=== PATIENT | male | born 1990 | race Caucasian/White ===

== ENCOUNTER 2016-06-19 09:04 | Inpatient (IN) | payer OTHER, BC ==
[2016-06-19] MEDS ORDERED: diPHENhydraMINE PO* 50 MG PO ONE (09:51)
[2016-06-19] MEDS ORDERED: LORazepam TAB(*) 1 MG PO ONE (09:51)
[2016-06-19] MEDS ORDERED: Haloperidol TAB* 5 MG PO ONE (09:51)
[2016-06-19] MEDS ORDERED: LORazepam INJ* 2 MG/ML 1 ML VIAL IM ONE (09:54)
[2016-06-19] MEDS ORDERED: diPHENhydraMINE IV* 50 MG/ML 1 ml VIAL (BENADRYL) IM ONE (09:54)
[2016-06-19] MEDS ORDERED: Haloperidol INJ IV/IM* 5 MG/ML AMP IM ONE (09:54)
[2016-06-19 11:26] LABS: Hematocrit 38 % (42-52); Mean Corpuscular HGB Conc 34 g/dl (31-36); Mean Corpuscular Hemoglobin 30 pg (27-31); Mean Corpuscular Volume 87 fL (80-94); Mean Platelet Volume 9 um3 (7.4-10.4); Red Blood Count 4.35 10^6/ul (4.0-5.4); Red Cell Distribution Width 13 % (10.5-15); White Blood Count 5.3 10^3/ul (3.5-10.8)
[2016-06-19 11:42] LABS: ALT 15 U/L (7-52); AST 24 U/L (13-39); Albumin 4.1 g/dL (3.2-5.2); Alkaline Phosphatase 44 U/L (34-104); Anion Gap 5 mmol/L (2-11); BUN/Creatinine Ratio 24.7 (8-20); Blood Urea Nitrogen 19 mg/dL (6-24); CO2 Carbon Dioxide 27 mmol/L (22-32); Calcium 8.9 mg/dL (8.6-10.3); Chloride 104 mmol/L (101-111); EGFR African American 157.1 (>60); EGFR Non-African American 122.1 (>60); Globulin 2.3 g/dL (2-4); Glucose 95 mg/dL (70-100); Potassium 3.3 mmol/L (3.5-5.0); Sodium 136 mmol/L (133-145); Total Protein 6.4 g/dL (6.4-8.9)
[2016-06-19 12:17] LABS: Acetaminophen < 15 mcg/mL; Alcohol < 10 mg/dL (<10); Salicylate < 2.50 mg/dL (<30)
[2016-06-19 12:26] LABS: TSH (Thyroid Stimulating Horm) 1.44 mcIU/mL (0.34-5.60)
--- NOTE | 2016-06-19 17:04 | ED ---
Elizabeth Fontenot Matthew, scribed for Jose M Flores MD on 06/19/16 at 0926 . Altered Mental Status - HPI Summary HPI Summary: A 26 y/o male presents to the ED by police as a 941 for altered mental status. According to police, the patient voluntarily came to the police station to admitted crimes he had committed at [facility] including arson and states that he suffers from schizophrenia. Per police, he has been experience a spectrum of emotions from remorse to anger. He has no suicidal ideations, but has verbalized homidical ideations to family members. In the ED, the patient is not speaking coherent thoughts rather speaking about saving the children and the holy spirit. - History Of Current Complaint Chief Complaint: EDMentalHealth Stated Complaint: 941 Time Seen by Provider: 06/19/16 09:15 Hx Obtained From: Patient, Other: - Police Onset/Duration: Still Present Timing: Constant Severity Initially: Moderate Severity Currently: Moderate Aggravating Factor(s): Unknown Alleviating Factor(s): Unknown Has Homicidal: Thoughts - Allergies/Home Medications Home Medications: Home Medications CloZAPine TAB* 50 mg PO BEDTIME 06/19/16 [History Confirmed 06/19/16] QUEtiapine TAB* [SEROquel TAB*] 100 mg PO Q8HR PRN MDD 300 mg 06/19/16 [History Confirmed 06/19/16] PMH/Surg Hx/FS Hx/Imm Hx Previously Healthy: No Psychiatric History: Reports: Hx Schizophrenia Denies: Hx Eating Disorder Infectious Disease History: Denies: Traveled Outside the [place] in Last 30 Days - Family History Family History: FHx of schizophrenia - Social History Alcohol Use: None Hx Substance Use: No Substance Use Type: Reports: None Review of Systems Constitutional: Negative Eyes: Negative ENT: Negative Cardiovascular: Negative Respiratory: Negative Gastrointestinal: Negative Genitourinary: Negative Musculoskeletal: Negative Skin: Negative Neurological: Negative Psychological: Other - homidical ideation; schizophrenia All Other Systems Reviewed And Are Negative: Yes Physical Exam Triage Information Reviewed: Yes Vital Signs On Initial Exam: Initial Vitals Temp Pulse Resp BP Pulse Ox 99.6 F 76 16 128/61 96 06/19/16 09:17 06/19/16 09:17 06/19/16 09:17 06/19/16 09:17 06/19/16 09:17 Vital Signs Reviewed: Yes Appearance: Positive: Well-Appearing, No Pain Distress Skin: Positive: Warm, Skin Color Reflects Adequate Perfusion, Dry Head/Face: Positive: Normal Head/Face Inspection ENT: Positive: Normal ENT inspection Neck: Positive: Supple, Nontender Cardiovascular: Positive: RRR Musculoskeletal: Positive: Normal, Strength/ROM Intact Neurological: Positive: Sensory/Motor Intact Psychiatric: Positive: Other - Delusional; Paranoid Diagnostics - Vital Signs Vital Signs Temp Pulse Resp BP Pulse Ox 06/19/16 09:17 99.6 F 76 16 128/61 96 - Laboratory Lab Results: Lab Results 06/19/16 06/19/16 Range/Units 11:20 11:20 WBC 5.3 (3.5-10.8) 10^3/ul RBC 4.35 (4.0-5.4) 10^6/ul Hgb 13.0 L (14.0-18.0) g/dl Hct 38 L (42-52) % MCV 87 (80-94) fL MCH 30 (27-31) pg MCHC 34 (31-36) g/dl RDW 13 (10.5-15) % Plt Count 192 (150-450) 10^3/ul MPV 9 (7.4-10.4) um3 Neut % (Auto) 66.1 (38-83) % Lymph % (Auto) 15.3 L (25-47) % [place] % (Auto) 13.1 H (1-9) % Eos % (Auto) 5.0 (0-6) % Baso % (Auto) 0.5 (0-2) % Absolute Neuts (auto) 3.5 (1.5-7.7) 10^3/ul Absolute Lymphs (auto) 0.8 L (1.0-4.8) 10^3/ul Absolute Monos (auto) 0.7 (0-0.8) 10^3/ul Absolute Eos (auto) 0.3 (0-0.6) 10^3/ul Absolute Basos (auto) 0 (0-0.2) 10^3/ul Absolute Nucleated RBC 0 10^3/ul Nucleated RBC % 0 Sodium 136 (133-145) mmol/L Potassium 3.3 L (3.5-5.0) mmol/L Chloride 104 (101-111) mmol/L Carbon Dioxide 27 (22-32) mmol/L Anion Gap 5 (2-11) mmol/L BUN 19 (6-24) mg/dL Creatinine 0.77 (0.67-1.17) mg/dL Est GFR ( Amer) 157.1 (>60) Est GFR (Non-Af Amer) 122.1 (>60) BUN/Creatinine Ratio 24.7 H (8-20) Glucose 95 (70-100) mg/dL Calcium 8.9 (8.6-10.3) mg/dL Total Bilirubin 0.40 (0.2-1.0) mg/dL AST 24 (13-39) U/L ALT 15 (7-52) U/L Alkaline Phosphatase 44 (34-104) U/L Total Protein 6.4 (6.4-8.9) g/dL Albumin 4.1 (3.2-5.2) g/dL Globulin 2.3 (2-4) g/dL Albumin/Globulin Ratio 1.8 (1-3) TSH 1.44 (0.34-5.60) mcIU/mL Salicylates < 2.50 (<30) mg/dL Acetaminophen < 15 mcg/mL Serum Alcohol < 10 (<10) mg/dL Result Diagrams: 06/19/16 11:20 06/19/16 11:20 Lab Statement: Any lab studies that have been ordered have been reviewed, and results considered in the medical decision making process. Altered Mental Statu Course/Dx - Course Assessment/Plan: MHE PENDING AT SHIFT CHANGE, STABLE. - Diagnoses Discharge Diagnoses: Mental health problem Discharge - Discharge Plan Condition: Stable Disposition[place]ATR[place] [place] Comment: The patient is signed out to Dr. Graham pending MHE The documentation as recorded by the Elizabeth barrientos Matthew accurately reflects the service I personally performed and the decisions made by me, Jose M Flores MD.
[2016-06-19] MEDS: OLANzapine TAB*ODT* 5 MG PO SCH ×2 (19:02→21:08)
[2016-06-19 21:24] LABS: Urine Bilirubin Negative (Negative); Urine Glucose Negative (Negative); Urine Nitrite Negative (Negative)
[2016-06-19 21:41] LABS: Benzodiazepine Urine Screen None Detected (None Detect)
[2016-06-20] MEDS: OLANzapine TAB*ODT* 5 MG PO SCH ×2 (09:12→19:58)
--- NOTE | 2016-06-20 11:51 | CONSULT ---
Consult Consult: Edgard Aponte was turned over to me at change of shift. He has a history of schizophrenia and had presented in a very disorganized state. He was medically cleared by the preceding Doc and remained stable and quiet during my shift. He was evaluated by MHE and was awaiting disposition in stable condition at the end of my shift.
[2016-06-20] MEDS ORDERED: Ibuprofen TAB* 400 MG PO ONE (12:44)
--- NOTE | 2016-06-20 15:41 | PN ---
ED Flex Patient Progress Note Subjective: This is a 26 year-old M who is pending transfer to another psychiatric facility secondary to schizophrenia. Pt offers no complaints at this time. He states he has been eating and drinking. He states he has been sleeping well. He is interacting appropriately. He asked to go outside and it was explained that he can not leave the building. Objective: Vitals: Most recent vital signs documented below. General NAD, Alert and oriented x3. Heart: rrr at 60 bpm Lungs: CTA or with rales, rhonchi, wheezing Ab: soft, nontender, normoactive bowel sounds Laboratory: Current laboratory results documented below. Assessment: schizophrenia Plan: Pending psychiatric to transfer, will follow up daily until transfer occurs. condition: stable Disposition: transfer to another psych facility Vital Signs Temp Pulse Resp BP Pulse Ox 98.3 F 58 16 104/60 98 06/20/16 05:49 06/20/16 05:49 06/20/16 05:49 06/20/16 05:49 06/20/16 05:49 Lab Results - Entire Visit 06/19/16 06/19/16 06/19/16 21:10 21:10 11:20 WBC RBC Hgb Hct MCV MCH MCHC RDW Plt Count MPV Neut % (Auto) Lymph % (Auto) [place] % (Auto) Eos % (Auto) Baso % (Auto) Absolute Neuts (auto) Absolute Lymphs (auto) Absolute Monos (auto) Absolute Eos (auto) Absolute Basos (auto) Absolute Nucleated RBC Nucleated RBC % Sodium 136 Potassium 3.3 L Chloride 104 Carbon Dioxide 27 Anion Gap 5 BUN 19 Creatinine 0.77 Est GFR ( Amer) 157.1 Est GFR (Non-Af Amer) 122.1 BUN/Creatinine Ratio 24.7 H Glucose 95 Calcium 8.9 Total Bilirubin 0.40 AST 24 ALT 15 Alkaline Phosphatase 44 Total Protein 6.4 Albumin 4.1 Globulin 2.3 Albumin/Globulin Ratio 1.8 TSH 1.44 Urine Color Yellow Urine Appearance Cloudy Urine pH 5.0 Ur Specific [place] 1.032 H Urine Protein Negative Urine Ketones Trace H Urine Blood Negative Urine Nitrate Negative Urine Bilirubin Negative Urine Urobilinogen Negative Ur Leukocyte Esterase Negative Urine Glucose Negative Urine Ascorbic Acid * H Salicylates < 2.50 Urine Opiates Screen None detected Acetaminophen < 15 Ur Barbiturates Screen None detected Ur Phencyclidine Scrn None detected Ur Amphetamines Screen None detected U Benzodiazepines Scrn None detected Urine Cocaine Screen None detected U Cannabinoids Screen None detected Serum Alcohol < 10 06/19/16 11:20 WBC 5.3 RBC 4.35 Hgb 13.0 L Hct 38 L MCV 87 MCH 30 MCHC 34 RDW 13 Plt Count 192 MPV 9 Neut % (Auto) 66.1 Lymph % (Auto) 15.3 L [place] % (Auto) 13.1 H Eos % (Auto) 5.0 Baso % (Auto) 0.5 Absolute Neuts (auto) 3.5 Absolute Lymphs (auto) 0.8 L Absolute Monos (auto) 0.7 Absolute Eos (auto) 0.3 Absolute Basos (auto) 0 Absolute Nucleated RBC 0 Nucleated RBC % 0 Sodium Potassium Chloride Carbon Dioxide Anion Gap BUN Creatinine Est GFR ( Amer) Est GFR (Non-Af Amer) BUN/Creatinine Ratio Glucose Calcium Total Bilirubin AST ALT Alkaline Phosphatase Total Protein Albumin Globulin Albumin/Globulin Ratio TSH Urine Color Urine Appearance Urine pH Ur Specific [place] Urine Protein Urine Ketones Urine Blood Urine Nitrate Urine Bilirubin Urine Urobilinogen Ur Leukocyte Esterase Urine Glucose Urine Ascorbic Acid Salicylates Urine Opiates Screen Acetaminophen Ur Barbiturates Screen Ur Phencyclidine Scrn Ur Amphetamines Screen U Benzodiazepines Scrn Urine Cocaine Screen U Cannabinoids Screen Serum Alcohol
--- NOTE | 2016-06-20 15:47 | PN ---
Progress Note - Progress Note Note: Psychiatry Update No inpatient bed available for transfer, or at [facility]. Spoke with pt's cousin Serena Graham by phone, she gave collateral along lines of info we have already. Edgard has been in good behavioral control. I met with hism. He was ambivalent about the idea of admission ("can't I just sign a 3 day?"). He made no frankly delusional comment but said "how do you know I don't have sepsis.?" Impression: decompensated Psychotic disorder, stabilizing behaviorally but requires a full Psychiatric admission and inpatient course. 1. continue Zyprexa (ordered) 2. transfer to [facility] area for comfort 3. admit to first available psychiatric bed
[2016-06-20] MEDS ORDERED: Acetaminophen TAB* 325 MG PO ONE (15:48)
[2016-06-20] MEDS ORDERED: OLANzapine TAB*ODT* 5 MG ONE (21:31)
[2016-06-21] MEDS ORDERED: Ibuprofen TAB* 600 MG PO ONE (01:14)
[2016-06-21] MEDS ORDERED: LORazepam TAB(*) 1 MG ONE (02:10)
[2016-06-21] MEDS ORDERED: Haloperidol TAB* 5 MG ONE (02:10)
[2016-06-21] MEDS: OLANzapine TAB*ODT* 5 MG PO SCH ×2 (12:02→20:10)
[2016-06-21] MEDS ORDERED: Nicotine GUM* 2 MG ONE (18:06)
[2016-06-21] MEDS: Nicotine Inhaler* 10 MG AMP INH PRN (18:09)
[2016-06-22] MEDS: Nicotine GUM* 2 MG PO PRN ×4 (00:21→20:18)
[2016-06-22] MEDS: OLANzapine TAB*ODT* 5 MG PO SCH (08:39)
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
[2016-06-22] MEDS ORDERED: Paliperidone TAB* 6 MG PO SCH (21:00)
[2016-06-23] MEDS ORDERED: LORazepam TAB(*) 1 MG ONE (01:31)
[2016-06-23] MEDS: Nicotine GUM* 2 MG PO PRN ×2 (09:10→12:59)
--- NOTE | 2016-06-23 10:30 | PN ---
Subjective - Subjective Service Type: 55823 Hosp care 15 min low complexity Subjective: Swapna requests change of medication from Invega to Zyprexa. He had said last evening that he had good effect against psychosis in the past with Invega. Today he says he feels he will do better taking Zyprexa. He also reports having had what he is calling an allergic reaction to mushrooms he ate at dinner , feeling sick after eating them with a fever and a headache. Nursing notes do not include report of any complaint of reaction to mushrooms, and no temperature was recorded last evening. Nursing notes do report that Swapna is wearing socks or gloves on his hands because he wants to keep his hands to himself and not touch anyone or have them touch him, that he was requesting his things all be donated. He complained of anxiety about 5 am today, attributed to Invega dose given at bedtime, and received 2 mg Ativan with good effect on order from the on-call psychiatrist. Objective - Appearance Appearance: Healthy Appearing Dysmorphic Features: No Hygiene: Normal Grooming: Fairly Well Kept - but wearing gloves or socks on hands - Behavior Psychomotor Activities: Normal Exhibits Abnormal Movement: No - Attitude and Relatedness Attitude and Relatedness: Psychotically Related Eye Contact: Fair - Speech Quality: Unpressured Latencies: Normal Quantity: Appropriate - Mood Patient's Decription of Mood: "Cautiously optimistic" - Affect Observed Affect: Constricted Affect Consistent with: Euthymia - Thought Process Patient's Thought Process: Disorganized Thought Content: Yes Paranoid Ideation - denied but shown by behavior, No Passive Wish, No Suicidal Planning, No Homicidal Ideation - Sensorium Experiencing Hallucinations: No, Sensorium is Clear Type of Hallucinations: Visual: No, Auditory: No, Command: No - Level of Consciousness Level of Consciousness: Alert Orientation: Yes Intact, Yes Orientated to Time, Yes Orientated to Place, Yes Orientated to Person - Impulse Control Impulse Control: Intact - Insight and Judgement Insight and Judgement: Impaired - Group Participation Particating in Group Activities: Yes - Medication Management Medication Management Adherence: Yes Assessment - Assessment Inpatient DSM-IV Dx: Schizophrenia; polysubstance abuse in remission; rule out PTSD. Clinical Impression: Mr. Leonardo is a 26-year-old, single man who is actively paranoid and delusional with an exacerbation of schizophrenia likely due to medication noncompliance. He has a history of four prior psychiatric hospitalizations and has moved to the area in part because of reported conflict in his relationship with his mother who lives in the [facility]. Today Swapna stated that he has thought of suicide, but not recently, but has never arranged any means for carrying out an attempt, and has been deterred by the thought of how it would affect his family. Today Swapna requests a change of meds as he says he has responded well in the past to Zyprexa, contradicting report from Dr Guerrier. He complained of intolerable anxiety after taking Invega at bedtime yesterday. He prefers not to take Clozaril. We will be continuing to gather collateral as he permits, with likely most useful contact being with his physician mother. Plan - Plan Treatment Plan: Name: SWAPNA LEONARDO Birthdate: 1990 [id number] D/C Invega, start Zyprexa 5 mg AM, 10 mg HS. Gather collateral. Monitor MS and safety. Encourage groups and milieu. D/C is likely to care with [facility]. Medications: Current Medications Nicotine (Nicotine Inhaler*) 10 mg INH Q2H PRN PRN Reason: CRAVING Last Admin: 06/21/16 18:09 Dose: 10 mg Nicotine Polacrilex (Nicotine Gum*) 2 mg PO Q2H PRN PRN Reason: CRAVINGS Last Admin: 06/23/16 09:10 Dose: 2 mg Zyprexa 5 mg am, 10 mg hs ativan 1 mg q6hrs prn anxiety - Discharge Plan Discharge Plan: Outpatient Follow Up Outpatient Program: [facility]
[2016-06-23] MEDS: OLANzapine TAB*ODT* 5 MG PO SCH (11:14)
--- NOTE | 2016-06-23 13:18 | PN ---
[facility]: Group Therapy Note - Service Type Service Type: [id number] Group Psychotherapy - Cognitive Behavioral Group Therapy ( CBT):Patient was attentive and participatory in CBT programming this morning, and remained in good behavioral control. Patient expressed positive insights regarding relevant treatment interventions and goals.
[2016-06-23] MEDS ORDERED: Magnesium Hydroxide LIQ* 30 ML UDC PO PRN (15:32)
[2016-06-23] MEDS: OLANzapine TAB*ODT* 10 MG TAB PO SCH (20:16)
[2016-06-23] MEDS: LORazepam TAB(*) 1 MG PO PRN (22:52)
[2016-06-24] MEDS: OLANzapine TAB*ODT* 5 MG PO SCH (08:57)
[2016-06-24] MEDS: Nicotine GUM* 2 MG PO PRN (08:58)
[2016-06-24] MEDS: OLANzapine TAB*ODT* 10 MG TAB PO SCH (21:34)
[2016-06-24] MEDS: LORazepam TAB(*) 1 MG PO PRN (23:35)
[2016-06-25] MEDS: OLANzapine TAB*ODT* 5 MG PO SCH (08:55)
[2016-06-25] MEDS: Nicotine GUM* 2 MG PO PRN ×3 (10:19→23:32)
--- NOTE | 2016-06-25 15:19 | PN ---
Subjective - Subjective Subjective: Swapna remains delusional and disorganized in his thinking, observed wearing lather gloves because he does not want to touch or to be touched by anyone. "I am working on my own inner thing!" He stops talking, whispers or asks to go somewhere else when others are within earshot. He denies side effects from prescribed Olanzapine. Objective - Appearance Appearance: Healthy Appearing Dysmorphic Features: No Hygiene: Normal Grooming: Well Kept - Behavior Psychomotor Activities: Normal Exhibits Abnormal Movement: No - Attitude and Relatedness Attitude and Relatedness: Psychotically Related Eye Contact: Poor - Speech Quality: Unpressured Latencies: Long Quantity: Terse - Mood Patient's Decription of Mood: "Okay" - Affect Observed Affect: Unvariable Affect Consistent with: Euthymia - Thought Process Patient's Thought Process: Disorganized, Tangential Thought Content: Yes Paranoid Ideation, No Passive Wish, No Suicidal Planning, No Homicidal Ideation - Sensorium Experiencing Hallucinations: No, Sensorium is Clear - Level of Consciousness Level of Consciousness: Alert Orientation: Yes Intact - Impulse Control Impulse Control: Intact - Insight and Judgement Insight and Judgement: Impaired - Group Participation Particating in Group Activities: No - Medication Management Medication Management Adherence: Yes Assessment - Assessment Merits Inpatient Hospitalization: Consolidate Improvements, For Discharge Planning Inpatient DSM-IV Dx: Schizophrenia; polysubstance abuse in remission; rule out PTSD. Clinical Impression: Ongoing impairing psychotic symptoms. tolerating trial of Olanzapine. He needs continued admission for stabilization. Plan - Plan Treatment Plan: Name: SWAPNA LEONARDO Birthdate: 1990 [id number] Medications: Current Medications Lorazepam (Ativan Tab(*)) 1 mg PO Q6H PRN PRN Reason: ANXIETY Last Admin: 06/24/16 23:35 Dose: 1 mg Magnesium Hydroxide (Milk Of Magnesia Liq*) 30 ml PO Q6H PRN PRN Reason: CONSTIPATION Nicotine (Nicotine Inhaler*) 10 mg INH Q2H PRN PRN Reason: CRAVING Last Admin: 06/21/16 18:09 Dose: 10 mg Nicotine Polacrilex (Nicotine Gum*) 2 mg PO Q2H PRN PRN Reason: CRAVINGS Last Admin: 06/25/16 10:19 Dose: 2 mg Olanzapine (Zyprexa *Odt*) 10 mg PO BEDTIME [facility] Last Admin: 06/24/16 21:34 Dose: 10 mg Olanzapine (Zyprexa * Tab Odt) 5 mg PO DAILY [facility] Last Admin: 06/25/16 08:55 Dose: 5 mg - Discharge Plan Discharge Plan: Outpatient Follow Up Outpatient Program: [facility]
[2016-06-25] MEDS: OLANzapine TAB*ODT* 10 MG TAB PO SCH ×2 (20:48→20:52)
[2016-06-25] MEDS: LORazepam TAB(*) 1 MG PO PRN (21:15)
--- NOTE | 2016-06-26 08:55 | PN ---
Subjective - Subjective Service Type: 53562 Hosp care 15 min low complexity Subjective: Guzman requests staff pass, complains of no fresh air. Says he had a 'really bad reaction' to Zyprexa, but says 'words won't do it justice' so will not tell me what it was. Requests replacing Zyprexa with Ambien. Wants a fast acting, dissolving med. Says his problem is psychic conflict, not mental illness, and that he is informed in this opinion by the 11th edition of the [employer] Manual. Denies any hallucinations. Does not recognize wearing a towel over his face and leather gloves on the unit as signs of broader behavioral disorganization. Wore a sign over the weekend stating he intended to remain silent. Still wants to donate his things, but family took them home. Refused 1 meeting with family. Objective - Appearance Appearance: Healthy Appearing Dysmorphic Features: No Hygiene: Normal Grooming: Disheveled - Behavior Psychomotor Activities: Normal Exhibits Abnormal Movement: No - Attitude and Relatedness Attitude and Relatedness: Psychotically Related Eye Contact: Fair - Speech Quality: Unpressured Latencies: Normal Quantity: Appropriate - Mood Patient's Decription of Mood: "a little frustrated" - Affect Observed Affect: Constricted - Thought Process Patient's Thought Process: Disorganized Thought Content: Yes Paranoid Ideation, No Passive Wish, No Suicidal Planning, No Homicidal Ideation - Sensorium Experiencing Hallucinations: No, Sensorium is Clear Type of Hallucinations: Visual: No, Auditory: No, Command: No - Level of Consciousness Level of Consciousness: Alert Orientation: Yes Intact, Yes Orientated to Time, Yes Orientated to Place, Yes Orientated to Person - Impulse Control Impulse Control: Intact - Insight and Judgement Insight and Judgement: Impaired - Group Participation Particating in Group Activities: Yes - Medication Management Medication Management Adherence: Yes Assessment - Assessment Merits Inpatient Hospitalization: For Immediate Safety, For Stabilization, To Initiate Treatment, For Ongoing Evaluation, For Discharge Planning, Pending Safe DC Plan Inpatient DSM-IV Dx: Schizophrenia; polysubstance abuse in remission; rule out PTSD. Clinical Impression: Mr. Leonardo is a 26-year-old, single man who is actively paranoid and delusional with an exacerbation of schizophrenia likely due to medication noncompliance. He has a history of four prior psychiatric hospitalizations and has moved to the area in part because of reported conflict in his relationship with his mother who lives in the [facility]. Today Swapna stated that he has thought of suicide, but not recently, but has never arranged any means for carrying out an attempt, and has been deterred by the thought of how it would affect his family. 06.23.17 Today Swapna requests a change of meds as he says he has responded well in the past to Zyprexa, contradicting report from Dr Guerrier. He complained of intolerable anxiety after taking Invega at bedtime yesterday. He prefers not to take Clozaril. We will be continuing to gather collateral as he permits, with likely most useful contact being with his physician mother. 06.26.17 Remains disorganized at a psychotic level with no insight. Continue to treat. Plan - Plan Treatment Plan: Name: SWAPNA LEONARDO Birthdate: 1990 [id number] Consider staff pass on treatment team. Continue Zyprexa 5 mg AM, 10 mg HS unless he gives report of side effect: current report seems delusional and will not give detailed account. Gather collateral. Monitor MS and safety. Encourage groups and milieu. D/C is likely to care with [facility]. Medications: Current Medications Lorazepam (Ativan Tab(*)) 1 mg PO Q6H PRN PRN Reason: ANXIETY Last Admin: 06/25/16 21:15 Dose: 1 mg Magnesium Hydroxide (Milk Of Magnesia Liq*) 30 ml PO Q6H PRN PRN Reason: CONSTIPATION Nicotine (Nicotine Inhaler*) 10 mg INH Q2H PRN PRN Reason: CRAVING Last Admin: 06/21/16 18:09 Dose: 10 mg Nicotine Polacrilex (Nicotine Gum*) 2 mg PO Q2H PRN PRN Reason: CRAVINGS Last Admin: 06/25/16 23:32 Dose: 2 mg Olanzapine (Zyprexa *Odt*) 10 mg PO BEDTIME [facility] Last Admin: 06/25/16 20:52 Dose: 10 mg Olanzapine (Zyprexa * Tab Odt) 5 mg PO DAILY [facility] Last Admin: 06/25/16 08:55 Dose: 5 mg - Discharge Plan Discharge Plan: Outpatient Follow Up Outpatient Program: [facility]
[2016-06-26] MEDS: OLANzapine TAB*ODT* 5 MG PO SCH ×3 (09:22→22:34)
--- NOTE | 2016-06-26 13:59 | PN ---
MHU: Group Therapy Note - Service Type Service Type: 07408 Group Psychotherapy - Cognitive Behavioral Group Therapy ( CBT):Patient was attentive and participatory in CBT programming this morning, and remained in good behavioral control. Patient expressed positive insights regarding relevant treatment interventions and goals.
[2016-06-27] MEDS: LORazepam TAB(*) 1 MG PO PRN ×2 (00:19→22:47)
--- NOTE | 2016-06-27 11:08 | PN ---
Subjective - Subjective Service Type: 84684 Hosp care 15 min low complexity Subjective: Swapna was reported on treatment team today as having refused Zyprexa, but the MAR indicates he later accepted the full dose of 15 mg. He would like to increase the dose to 20 mg this evening. He would also like to have available PRNs of clozapine 12.5 mg. He would like to consider this as a possible assisted strategy for treatment of his psychotic illness, adding PRNs of Clozaril to standing doses of Zyprexa. Objective - Appearance Appearance: Healthy Appearing Dysmorphic Features: No Hygiene: Normal Grooming: Well Kept - Behavior Psychomotor Activities: Normal Exhibits Abnormal Movement: No - Attitude and Relatedness Attitude and Relatedness: Cooperative Eye Contact: Good - Speech Quality: Unpressured Latencies: Normal Quantity: Appropriate - Mood Patient's Decription of Mood: "Well" - Affect Observed Affect: Fair Affect Consistent with: Euthymia - Thought Process Patient's Thought Process: Coherent, Goal Directed Thought Content: No Passive Wish, No Suicidal Planning, No Homicidal Ideation, No Paranoid Ideation - Sensorium Experiencing Hallucinations: Yes Type of Hallucinations: Visual: No, Auditory: No, Command: No - Level of Consciousness Level of Consciousness: Alert Orientation: Yes Intact, Yes Orientated to Time, Yes Orientated to Place, Yes Orientated to Person - Impulse Control Impulse Control: Intact - Insight and Judgement Insight and Judgement: Poor - but improved slightly - Group Participation Particating in Group Activities: No - Medication Management Medication Management Adherence: Yes Assessment - Assessment Merits Inpatient Hospitalization: For Immediate Safety, For Stabilization, For Discharge Planning, Pending Safe DC Plan Inpatient DSM-IV Dx: Schizophrenia; polysubstance abuse in remission; rule out PTSD. Clinical Impression: Mr. Leonardo is a 26-year-old, single man who is actively paranoid and delusional with an exacerbation of schizophrenia likely due to medication noncompliance. He has a history of four prior psychiatric hospitalizations and has moved to the area in part because of reported conflict in his relationship with his mother who lives in the [facility]. Today Swapna stated that he has thought of suicide, but not recently, but has never arranged any means for carrying out an attempt, and has been deterred by the thought of how it would affect his family. 06.23.16 Today Swapna requests a change of meds as he says he has responded well in the past to Zyprexa, contradicting report from Dr Guerrier. He complained of intolerable anxiety after taking Invega at bedtime yesterday. He prefers not to take Clozaril. We will be continuing to gather collateral as he permits, with likely most useful contact being with his physician mother. 06.26.17 Remains disorganized at a psychotic level with no insight. Continue to treat. 06.27.17 Starting to show some signs of increased alliance and insight, asking for medication changes to address psychotic illness. Plan - Plan Treatment Plan: Name: SWAPNA LEONARDO Birthdate: 1990 [id number] Consider staff pass on treatment team. Increase Zyprexa to 20 mg HS per patient request. Get WBC/ANC weekly while making available clozapine 12.5 mg po daily per patient request. Order cryptoanalysis teacher consult per patient request. Gather collateral. Monitor MS and safety. Encourage groups and milieu. D/C is likely to care with [facility]. Continued Medication Management: Different Medication Medications: Current Medications Lorazepam (Ativan Tab(*)) 1 mg PO Q6H PRN PRN Reason: ANXIETY Last Admin: 06/27/16 00:19 Dose: 1 mg Magnesium Hydroxide (Milk Of Magnesia Liq*) 30 ml PO Q6H PRN PRN Reason: CONSTIPATION Nicotine (Nicotine Inhaler*) 10 mg INH Q2H PRN PRN Reason: CRAVING Last Admin: 06/21/16 18:09 Dose: 10 mg Nicotine Polacrilex (Nicotine Gum*) 2 mg PO Q2H PRN PRN Reason: CRAVINGS Last Admin: 06/25/16 23:32 Dose: 2 mg Olanzapine (Zyprexa * Tab Odt) 15 mg PO BEDTIME [facility] Last Admin: 06/26/16 22:34 Dose: 15 mg - Discharge Plan Discharge Plan: Outpatient Follow Up Outpatient Program: [facility]
[2016-06-27] MEDS ORDERED: CloZAPine TAB* 25 MG TAB PO PRN (11:15)
[2016-06-27] MEDS: Nicotine GUM* 2 MG PO PRN (14:29)
[2016-06-27] MEDS: OLANzapine TAB*ODT* 5 MG PO SCH (21:46)
--- NOTE | 2016-06-28 08:34 | PN ---
Subjective - Subjective Service Type: 70613 Hosp care 15 min low complexity Subjective: Guzman asks to be able to wear his yamaka-like hat, to have prn Ambien, and asks for staff pass. He reports his mood is 'alright' and has as throughout his hospitalization no dangerous intent or plan. He denies any hallucinations. His thought process seems better organized today. Objective - Appearance Appearance: Healthy Appearing Dysmorphic Features: No Hygiene: Normal Grooming: Well Kept - Behavior Psychomotor Activities: Normal Exhibits Abnormal Movement: No - Attitude and Relatedness Attitude and Relatedness: Cooperative Eye Contact: Poor - Speech Quality: Unpressured Latencies: Normal Quantity: Appropriate - Mood Patient's Decription of Mood: "Alright" - Affect Observed Affect: Constricted Affect Consistent with: Euthymia - Thought Process Patient's Thought Process: Coherent, Goal Directed Thought Content: No Passive Wish, No Suicidal Planning, No Homicidal Ideation, No Paranoid Ideation - Sensorium Experiencing Hallucinations: No, Sensorium is Clear Type of Hallucinations: Visual: No, Auditory: No, Command: No - Level of Consciousness Level of Consciousness: Alert Orientation: Yes Intact, Yes Orientated to Time, Yes Orientated to Place, Yes Orientated to Person - Impulse Control Impulse Control: Intact - Insight and Judgement Insight and Judgement: Fair - Group Participation Particating in Group Activities: Yes - Medication Management Medication Management Adherence: Yes Assessment - Assessment Merits Inpatient Hospitalization: For Stabilization, Consolidate Improvements, For Discharge Planning Inpatient DSM-IV Dx: Schizophrenia; polysubstance abuse in remission; rule out PTSD. Clinical Impression: Mr. Leonardo is a 26-year-old, single man who is actively paranoid and delusional with an exacerbation of schizophrenia likely due to medication noncompliance. He has a history of four prior psychiatric hospitalizations and has moved to the area in part because of reported conflict in his relationship with his mother who lives in the [facility]. Today Swapna stated that he has thought of suicide, but not recently, but has never arranged any means for carrying out an attempt, and has been deterred by the thought of how it would affect his family. 06.23.16 Today Swapna requests a change of meds as he says he has responded well in the past to Zyprexa, contradicting report from Dr Guerrier. He complained of intolerable anxiety after taking Invega at bedtime yesterday. He prefers not to take Clozaril. We will be continuing to gather collateral as he permits, with likely most useful contact being with his physician mother. 1.23.17 Remains disorganized at a psychotic level with no insight. Continue to treat. 1.24.17 Starting to show some signs of increased alliance and insight, asking for medication changes to address psychotic illness. 1.25.17 Continues to demonstrate increased alliance and insight, albeit in an ingratiating tone. Will consider with treatment team requests to wear yamaka and to go out on staff pass. Will add prn Ambien, but with understanding that this is not intended to replace Zyprexa, which already aids sleep per his report. May be near to planning for d/c to f/u with [facility]. Plan - Plan Treatment Plan: Name: SWAPNA LEONARDO Birthdate: 1990 [id number] Consider staff pass on treatment team. Continue Zyprexa at 20 mg HS. Get WBC/ ANC weekly while making available clozapine 12.5 mg po daily per patient request. Ordered drugless physician consult per patient request. Gather collateral. Monitor MS and safety. Encourage groups and milieu. D/C is likely to care with [facility] in the next few days. Medications: Current Medications Clozapine (Clozapine Tab*) 12.5 mg PO DAILY PRN PRN Reason: PSYCHOSIS Lorazepam (Ativan Tab(*)) 1 mg PO Q6H PRN PRN Reason: ANXIETY Last Admin: 06/27/16 22:47 Dose: 1 mg Magnesium Hydroxide (Milk Of Magnesia Liq*) 30 ml PO Q6H PRN PRN Reason: CONSTIPATION Nicotine (Nicotine Inhaler*) 10 mg INH Q2H PRN PRN Reason: CRAVING Last Admin: 06/21/16 18:09 Dose: 10 mg Nicotine Polacrilex (Nicotine Gum*) 2 mg PO Q2H PRN PRN Reason: CRAVINGS Last Admin: 06/27/16 14:29 Dose: 2 mg Olanzapine (Zyprexa * Tab Odt) 15 mg PO BEDTIME [facility] Last Admin: 06/27/16 21:46 Dose: 15 mg - Discharge Plan Discharge Plan: Outpatient Follow Up Outpatient Program: [facility]
[2016-06-28] MEDS: Nicotine GUM* 2 MG PO PRN ×2 (10:11→14:12)
[2016-06-28] MEDS: OLANzapine TAB*ODT* 5 MG PO SCH (20:51)
[2016-06-29] MEDS: LORazepam TAB(*) 1 MG PO PRN (09:50)
[2016-06-29] MEDS: OLANzapine TAB*ODT* 5 MG PO SCH (20:20)
[2016-06-29] MEDS ORDERED: CloZAPine TAB* 25 MG TAB PO SCH (21:00)
[2016-06-30] MEDS: Oral Rinse (Biotene)(NF) 237 ML or 473 ML ORAL RINSE BTL MT SCH (09:56)
[2016-06-30 11:13] LABS: Hematocrit 40 % (42-52); Hemoglobin 13.7 g/dl (14.0-18.0); Mean Corpuscular HGB Conc 34 g/dl (31-36); Mean Corpuscular Hemoglobin 30 pg (27-31); Mean Corpuscular Volume 88 fL (80-94); Mean Platelet Volume 8 um3 (7.4-10.4); Red Blood Count 4.59 10^6/ul (4.0-5.4); Red Cell Distribution Width 13 % (10.5-15); White Blood Count 7.9 10^3/ul (3.5-10.8)
--- NOTE | 2016-06-30 11:52 | PN ---
Subjective - Subjective Service Type: 20174 Hosp care 25 min moderate complexity Subjective: Guzman reports no active psychotic symptoms. He has had no ill effect of adding a low clozaril dose to his bedtime zyprexa. He had been concerned about sedation , requesting low dose Adderall in case of that, but no signs of that today, and I would avoid a stimulant. Objective - Appearance Appearance: Healthy Appearing Dysmorphic Features: No Hygiene: Normal Grooming: Well Kept - Behavior Psychomotor Activities: Normal Exhibits Abnormal Movement: No - Attitude and Relatedness Attitude and Relatedness: Cooperative Eye Contact: Good - Speech Quality: Unpressured Latencies: Normal Quantity: Appropriate - Mood Patient's Decription of Mood: "Good" - Affect Observed Affect: Good Affect Consistent with: Euthymia - Thought Process Patient's Thought Process: Coherent, Goal Directed Thought Content: No Passive Wish, No Suicidal Planning, No Homicidal Ideation, No Paranoid Ideation - Sensorium Experiencing Hallucinations: No, Sensorium is Clear Type of Hallucinations: Visual: No, Auditory: No, Command: No - Level of Consciousness Level of Consciousness: Alert Orientation: Yes Intact, Yes Orientated to Time, Yes Orientated to Place, Yes Orientated to Person - Impulse Control Impulse Control: Intact - Insight and Judgement Insight and Judgement: Fair - Group Participation Particating in Group Activities: Yes - Medication Management Medication Management Adherence: Yes Assessment - Assessment Merits Inpatient Hospitalization: For Stabilization, To Initiate Treatment, For Discharge Planning, Pending Safe DC Plan Inpatient DSM-IV Dx: Schizophrenia; polysubstance abuse in remission; rule out PTSD. Clinical Impression: Mr. Leonardo is a 26-year-old, single man who is actively paranoid and delusional with an exacerbation of schizophrenia likely due to medication noncompliance. He has a history of four prior psychiatric hospitalizations and has moved to the area in part because of reported conflict in his relationship with his mother who lives in the [facility]. Today Edgard stated that he has thought of suicide, but not recently, but has never arranged any means for carrying out an attempt, and has been deterred by the thought of how it would affect his family. 06.23.16 Today Edgard requests a change of meds as he says he has responded well in the past to Zyprexa, contradicting report from Dr Guerrier. He complained of intolerable anxiety after taking Invega at bedtime yesterday. He prefers not to take Clozaril. We will be continuing to gather collateral as he permits, with likely most useful contact being with his physician mother. 1..17 Remains disorganized at a psychotic level with no insight. Continue to treat. 1..17 Starting to show some signs of increased alliance and insight, asking for medication changes to address psychotic illness. ..17 Continues to demonstrate increased alliance and insight, albeit in an ingratiating tone. Will consider with treatment team requests to wear yamaka and to go out on staff pass. Will add prn Ambien, but with understanding that this is not intended to replace Zyprexa, which already aids sleep per his report. May be near to planning for d/c to f/u with [facility]. 06.30.17 Guzman has improved relating style and decreased signs of psychotic exacerbation today. He has moved from being wary of all suggestions regarding med changes and other aspects of care, to a more collaborative stance today, and has agreed to a cross-taper from Zyprexa to Clozaril, in recognition of report from his mother and his past psychiatrist that he has functioned best on low dose Clozaril 50 mg at bedtime, so this is my target for cross-tapering off Zyprexa onto Clozaril. He is pleasant and collaborative with care, med, meal and group compliant. Plan - Plan Treatment Plan: Name: EDGARD LEONARDO Birthdate: 1990 [id number] Staff pass ordered after confirming consensus from treatment team members. Cross-taper through the weekend off Zyprexa, on Clozaril. Monitor MS and safety. Encourage groups and milieu. D/C is likely to care with [facility] early next week, but housing may be an issue with Aunt concerned about severity of his mental illness presenting more challenges than she thought when she agreed to his coming from [facility] to live with her. Continued Medication Management: Different Medication Medications: Current Medications Clozapine (Clozapine Tab*) 12.5 mg PO BEDTIME MARIE Last Admin: 06/29/16 20:19 Dose: 12.5 mg with daily increments targeting 50 mg at bedtime. Lorazepam (Ativan Tab(*)) 1 mg PO Q6H PRN PRN Reason: ANXIETY Last Admin: 06/29/16 09:50 Dose: 1 mg Magnesium Hydroxide (Milk Of Magnesia Liq*) 30 ml PO Q6H PRN PRN Reason: CONSTIPATION Multi-Ingredient Mouthwash/Gargle (Biotene Dry Mouth Oral Rinse(Nf)) 15 ml MT . DIRECTED [facility] Last Admin: 06/30/16 09:56 Dose: 15 ml Nicotine (Nicotine Inhaler*) 10 mg INH Q2H PRN PRN Reason: CRAVING Last Admin: 06/21/16 18:09 Dose: 10 mg Nicotine Polacrilex (Nicotine Gum*) 2 mg PO Q2H PRN PRN Reason: CRAVINGS Last Admin: 06/28/16 14:12 Dose: 2 mg Olanzapine (Zyprexa * Tab Odt) 15 mg PO BEDTIME [facility] Last Admin: 06/29/16 20:20 Dose: 15 mg with daily decrements against increasing Clozaril doses. - Discharge Plan Discharge Plan: [facility]
--- NOTE | 2016-06-30 14:02 | PN ---
MHU: Group Therapy Note - Service Type Service Type: [id number] Group Psychotherapy - Edgard attended cbt programming and was responsive to direct prompts to participate. He described hoping to find employment working in the [employer] industry, describing continuing to adjust to his recent move to [place]. He presents with fair affect that varies with discussion in group context.
[2016-06-30] MEDS: LORazepam TAB(*) 1 MG PO PRN (14:29)
[2016-06-30] MEDS: Nicotine GUM* 2 MG PO PRN ×2 (18:29→21:58)
[2016-06-30] MEDS: CloZAPine TAB* 25 MG TAB PO SCH (23:45)
[2016-06-30] MEDS: OLANzapine TAB*ODT* 5 MG PO SCH (23:45)
[2016-07-01] MEDS: Nicotine GUM* 2 MG PO PRN (17:31)
[2016-07-01] MEDS: OLANzapine TAB*ODT* 5 MG PO SCH (20:28)
[2016-07-01] MEDS: CloZAPine TAB* 25 MG TAB PO SCH (20:29)
[2016-07-02] MEDS ORDERED: Mouth Piece, Nicotine* 1 EACH CARTRIDGE ONE (17:32)
[2016-07-02] MEDS: Nicotine Inhaler* 10 MG AMP INH PRN (17:33)
[2016-07-02] MEDS: CloZAPine TAB* 25 MG TAB PO SCH (20:33)
--- NOTE | 2016-07-03 11:42 | PN ---
Subjective - Subjective Service Type: 24502 Hosp care 15 min low complexity Subjective: Swapna speaks in a meandering fashion, with perseveration on "propanol" ( propranolol) as he thinks it will help him deal with morning fatigue (side effect - clozapine). His topics include: - confucianism control by other patients - ambivalence about taking clozapine - constructive goals for putting his life together in [place]. I validated his concerns and encouraged his giving clozapine a chance. Objective - Appearance Appearance: Thin Framed Hygiene: Normal Grooming: Well Kept - Behavior Psychomotor Activities: Normal - Attitude and Relatedness Attitude and Relatedness: Needy Eye Contact: Fair - Speech Quality: Unpressured Latencies: Normal Quantity: Appropriate - Mood Patient's Decription of Mood: "Okay" - Affect Observed Affect: Non-labile Affect Consistent with: Dysphoria - mild - Thought Process Patient's Thought Process: Loose Associations, Over Inclusive Thought Content: Yes Paranoid Ideation - ideas of confucianism control, No Passive Wish, No Suicidal Planning, No Homicidal Ideation - Level of Consciousness Level of Consciousness: Alert - Impulse Control Impulse Control: Intact - Insight and Judgement Insight and Judgement: Poor Assessment - Assessment Merits Inpatient Hospitalization: To Initiate Treatment, For Ongoing Evaluation , Consolidate Improvements, For Discharge Planning, Pending Safe DC Plan Inpatient DSM-IV Dx: Schizophrenia; polysubstance abuse in remission; rule out PTSD. Clinical Impression: 26-year-old, tenuously domiciled, unemployed male with history of Schizophrenia , and prior psychiatric hospitalizations, para-suicidal and threatening behavior. He was admitted due to concern over disordered thinking and impairing delusions after being brought to the ED by law enforcement. The context was recent medication non adherence and relocation to [place] from [place]. Stabilizing behaviorally here. Is safe on checks, adherent with routines. Intensity of psychosis is milder - he continues with thought disorder, overvalued ideas, and evidence of psychotic level boundaries; but is less overtly delusional; and distress is much milder. Medication mgt. started with Zyprexa but now offers a clozapine retrial, based on reports of very good prior results. Plan - Plan Treatment Plan: Name: SWAPNA LEONARDO Birthdate: 1990 [id number] Continued Medication Management: Start Medication Medications: Current Medications Clozapine (Clozapine Tab*) 50 mg PO BEDTIME [facility] PRN Reason: Taper Stop: 07/03/16 12:06 Last Admin: 07/02/16 20:33 Dose: 50 mg Lorazepam (Ativan Tab(*)) 1 mg PO Q6H PRN PRN Reason: ANXIETY Last Admin: 06/30/16 14:29 Dose: 1 mg Magnesium Hydroxide (Milk Of Magnesia Liq*) 30 ml PO Q6H PRN PRN Reason: CONSTIPATION Multi-Ingredient Mouthwash/Gargle (Biotene Dry Mouth Oral Rinse(Nf)) 15 ml MT . DIRECTED [facility] Last Admin: 06/30/16 09:56 Dose: 15 ml Nicotine (Nicotine Inhaler*) 10 mg INH Q2H PRN PRN Reason: CRAVING Last Admin: 07/02/16 17:33 Dose: 10 mg Nicotine Polacrilex (Nicotine Gum*) 2 mg PO Q2H PRN PRN Reason: CRAVINGS Last Admin: 07/01/16 17:31 Dose: 2 mg - Discharge Plan Discharge Plan: Outpatient Follow Up
--- NOTE | 2016-07-03 12:49 | PN ---
MHU: Group Therapy Note - Service Type Service Type: [id number] Group Psychotherapy - Cognitive Behavioral Group Therapy ( CBT):Patient was attentive and participatory in CBT programming this morning, and remained in good behavioral control. Patient expressed positive insights regarding relevant treatment interventions and goals.
[2016-07-03] MEDS: Ibuprofen TAB* 400 MG PO PRN (15:21)
[2016-07-04] MEDS ORDERED: chlorproMAZINE TAB* 50 MG ONE (01:43)
[2016-07-04] MEDS ORDERED: chlorproMAZINE TAB* 50 MG PO ONE ×2 (02:00→20:00)
[2016-07-04] MEDS ORDERED: CloZAPine TAB* 25 MG TAB PO ONE (11:00)
--- NOTE | 2016-07-04 13:05 | PN ---
MHU: Group Therapy Note - Service Type Service Type: [id number] Group Psychotherapy - Cognitive Behavioral Group Therapy ( CBT):Patient was attentive and participatory in CBT programming this morning, and remained in good behavioral control. Patient expressed positive insights regarding relevant treatment interventions and goals.
[2016-07-04] MEDS: Ibuprofen TAB* 400 MG PO PRN (16:48)
[2016-07-04] MEDS: CloZAPine TAB* 25 MG TAB PO SCH ×2 (21:02→22:09)
[2016-07-05] MEDS: Ibuprofen TAB* 400 MG PO PRN ×2 (08:33→14:45)
[2016-07-05] MEDS: Oral Rinse (Biotene)(NF) 237 ML or 473 ML ORAL RINSE BTL MT SCH ×3 (08:58→22:11)
[2016-07-05] MEDS: Nicotine GUM* 2 MG PO PRN (11:08)
--- NOTE | 2016-07-05 11:39 | PN ---
Subjective - Subjective Service Type: [id number] Hosp care 15 min low complexity Subjective: Swapna repeated: "I can't run a marathon on clozapine" a number of times. He was a bit upset, and eventually we talked about his prior experiences with antipsychotics. He affirms he won't cooperating with clozapine, and blood tests, but that he would agree with taking Seroquel XR ( he waived full discussion of i/r/b citing familiarity) and he agreed in principal with taking doses relevant for Schizophrenia (I cited 600mg). Objective - Appearance Appearance: Well Developed/Nourished Hygiene: Normal Grooming: Well Kept - Behavior Psychomotor Activities: Abnormal-Increased - Attitude and Relatedness Attitude and Relatedness: Needy Eye Contact: Fair - Speech Quality: Unpressured Latencies: Short Quantity: Appropriate - Mood Patient's Decription of Mood: "Anxious" - Affect Observed Affect: Tense Affect Consistent with: Dysphoria - Thought Process Patient's Thought Process: Over Inclusive - perseverative Thought Content: No Passive Wish, No Suicidal Planning, No Homicidal Ideation, No Paranoid Ideation - Sensorium Experiencing Hallucinations: No, Sensorium is Clear - Level of Consciousness Level of Consciousness: Alert - Impulse Control Impulse Control: Intact - Insight and Judgement Insight and Judgement: Poor Assessment - Assessment Merits Inpatient Hospitalization: For Stabilization, To Initiate Treatment, For Ongoing Evaluation, Pending Safe DC Plan Inpatient DSM-IV Dx: Schizophrenia; polysubstance abuse in remission; rule out PTSD. Clinical Impression: 26-year-old, tenuously domiciled, unemployed male with history of Schizophrenia , and prior psychiatric hospitalizations, para-suicidal and threatening behavior. He was admitted due to concern over disordered thinking and impairing delusions after being brought to the ED by law enforcement. The context was recent medication non adherence and relocation to [place] from [place]. Stabilized behaviorally here. Is safe on checks, adherent with routines. Psychosis continues but intensity is milder - he continues with thought disorder , overvalued ideas, and evidence of psychotic level boundaries; but is less overtly delusional; and distress is much milder. Medication mgt. started with Zyprexa, now offers a clozapine retrial (based on reports of very good prior results); but now he disagrees with clozaril protocol. He reasonably opt for Seroquel XR - if it helps, and he adheres, it will be worth the time spent arriving at the regimen - starting Seroquel today. Plan - Plan Treatment Plan: Name: SWAPNA LEONARDO Birthdate: 1990 [id number] Continued Medication Management: Different Medication Medications: Current Medications Clozapine (Clozapine Tab*) 50 mg PO BEDTIME [facility] Last Admin: 07/04/16 22:09 Dose: 50 mg Ibuprofen (Motrin Tab*) 400 mg PO Q6H PRN PRN Reason: PAIN Last Admin: 07/05/16 08:33 Dose: 400 mg Magnesium Hydroxide (Milk Of Magnesia Liq*) 30 ml PO Q6H PRN PRN Reason: CONSTIPATION Multi-Ingredient Mouthwash/Gargle (Biotene Dry Mouth Oral Rinse(Nf)) 15 ml MT . DIRECTED [facility] Last Admin: 07/05/16 08:58 Dose: 15 ml Nicotine (Nicotine Inhaler*) 10 mg INH Q2H PRN PRN Reason: CRAVING Last Admin: 07/02/16 17:33 Dose: 10 mg Nicotine Polacrilex (Nicotine Gum*) 2 mg PO Q2H PRN PRN Reason: CRAVINGS Last Admin: 07/05/16 11:08 Dose: 2 mg - Discharge Plan Discharge Plan: Outpatient Follow Up
--- NOTE | 2016-07-05 12:04 | PN ---
MHU: Group Therapy Note - Service Type Service Type: [id number] Group Psychotherapy - Cognitive Behavioral Group Therapy ( CBT):Patient attended CBT programming this morning and presented with flat affect that did not vary with discussion. Although responsive to direct prompts to respond to questions, patient did not engage in spontaneous conversation.
[2016-07-05] MEDS ORDERED: QUEtiapine XR TAB* 300 MG PO SCH (21:00)
[2016-07-06] MEDS: Ibuprofen TAB* 400 MG PO PRN ×2 (06:09→22:21)
[2016-07-06] MEDS: Nicotine Inhaler* 10 MG AMP INH PRN (06:10)
[2016-07-06] MEDS: Mouth Piece, Nicotine* 1 EACH CARTRIDGE ONE ×2 (06:15→11:03)
[2016-07-06] MEDS: Nicotine GUM* 2 MG PO PRN (07:32)
[2016-07-06 07:44] LABS: HDL Cholesterol 55.6 mg/dL
[2016-07-06] MEDS ORDERED: Mouth Piece, Nicotine* 1 EACH CARTRIDGE ONE (11:02)
[2016-07-06 11:03] LABS: Syphilis Index 0.2 Index
[2016-07-06] MEDS: Oseltamivir CAP* 75 MG PO SCH (11:55)
--- NOTE | 2016-07-06 13:46 | PN ---
MHU: Group Therapy Note - Service Type Service Type: [id number] Group Psychotherapy - Cognitive Behavioral Group Therapy ( CBT):Patient attended CBT programming this morning and presented with flat affect that did not vary with discussion. Although responsive to direct prompts to respond to questions, patient did not engage in spontaneous conversation.
[2016-07-06] MEDS ORDERED: QUEtiapine XR TAB* 200 MG PO SCH (21:00)
[2016-07-07] MEDS: Oseltamivir CAP* 75 MG PO SCH (08:44)
[2016-07-07] MEDS: Ibuprofen TAB* 400 MG PO PRN (13:16)
[2016-07-07] MEDS ORDERED: QUEtiapine XR TAB* 200 MG PO SCH (13:44)
--- NOTE | 2016-07-07 13:47 | PN ---
Subjective - Subjective Service Type: [id number] Hosp care 15 min low complexity Subjective: Swapna apologized about his aggravation with a bothersome peer here. I asked about hallucinations, and he gave a circuitous answer with overvalued ideas about natural glass, and mirror image versions of himself. He denied major distress, was guardedly optimistic Seroquel may work. I reviewed his recent upset - he affirmed he can be safe to himself and others in behavior. Objective - Appearance Appearance: Thin Framed Hygiene: Normal Grooming: Well Kept - Behavior Exhibits Abnormal Movement: Yes - Attitude and Relatedness Attitude and Relatedness: Psychotically Related Eye Contact: Fair - Speech Quality: Unpressured Latencies: Normal Quantity: Copious - Mood Patient's Decription of Mood: "Okay" - Affect Observed Affect: Tense Affect Consistent with: Dysphoria - Thought Process Patient's Thought Process: Over Inclusive Thought Content: No Passive Wish, No Suicidal Planning, No Homicidal Ideation, No Paranoid Ideation - Sensorium Experiencing Hallucinations: No, Sensorium is Clear - Level of Consciousness Level of Consciousness: Alert - Impulse Control Impulse Control: Tenuous - Insight and Judgement Insight and Judgement: Poor Assessment - Assessment Merits Inpatient Hospitalization: For Immediate Safety, For Stabilization, To Initiate Treatment, For Ongoing Evaluation, For Discharge Planning, Pending Safe DC Plan Inpatient DSM-IV Dx: Schizophrenia; polysubstance abuse in remission; rule out PTSD. Clinical Impression: 26-year-old, tenuously domiciled, unemployed male with history of Schizophrenia , and prior psychiatric hospitalizations, para-suicidal and threatening behavior. He was admitted due to concern over disordered thinking and impairing delusions after being brought to the ED by law enforcement. The context was recent medication non adherence and relocation to [place] from [place]. In a somewhat up an down course. Had apparently stabilized behaviorally here, has been safe on checks, adherent with routines. But 2/2 had agitation, it seems in relation to a difficult peer, and made some reference to killing himself. Psychosis continues but intensity is generally milder - he continues with thought disorder, overvalued ideas, and evidence of psychotic level boundaries; but is less overtly delusional; and distress has generally been much milder. Medication mgt. started with Zyprexa, then offered a clozapine retrial (based on reports of very good prior results); but he disagreed with clozaril protocol , and opted for Seroquel XR -now tolerating initial doses. Plan - Plan Treatment Plan: Name: SWAPNA LEONARDO Birthdate: 1990 [id number] Continued Medication Management: Start Medication Medications: Current Medications Ibuprofen (Motrin Tab*) 400 mg PO Q6H PRN PRN Reason: PAIN Last Admin: 07/07/16 13:16 Dose: 400 mg Magnesium Hydroxide (Milk Of Magnesia Liq*) 30 ml PO Q6H PRN PRN Reason: CONSTIPATION Multi-Ingredient Mouthwash/Gargle (Biotene Dry Mouth Oral Rinse(Nf)) 15 ml MT . DIRECTED [facility] Last Admin: 07/05/16 22:11 Dose: 15 ml Nicotine (Nicotine Inhaler*) 10 mg INH Q2H PRN PRN Reason: CRAVING Last Admin: 07/06/16 06:10 Dose: 10 mg Nicotine Polacrilex (Nicotine Gum*) 2 mg PO Q2H PRN PRN Reason: CRAVINGS Last Admin: 07/06/16 07:32 Dose: 2 mg Oseltamivir Phosphate (Tamiflu Cap*) 75 mg PO DAILY [facility] Stop: 07/15/16 09:01 Last Admin: 07/07/16 08:44 Dose: 75 mg Quetiapine Fumarate (Seroquel Xr Tab*) 500 mg PO BEDTIME [facility] - Discharge Plan Discharge Plan: Outpatient Follow Up
[2016-07-07] MEDS ORDERED: QUEtiapine TAB* 100 MG ONE (17:07)
[2016-07-07] MEDS ORDERED: Benzocaine/Menthol LOZ* 1 LOZENGE ONE (17:09)
[2016-07-07] MEDS ORDERED: LORazepam INJ* 2 MG/ML 1 ML VIAL ONE (18:04)
[2016-07-07] MEDS ORDERED: LORazepam INJ* 2 MG/ML 1 ML VIAL IM ONE (19:00)
[2016-07-07] MEDS: QUEtiapine XR TAB* 200 MG PO SCH (20:36)
[2016-07-07] MEDS: QUEtiapine XR TAB* 300 MG PO SCH (20:36)
[2016-07-08] MEDS: Oseltamivir CAP* 75 MG PO SCH (09:55)
[2016-07-08] MEDS: Benzocaine/Menthol LOZ* 1 LOZENGE PO PRN ×2 (12:28→20:12)
[2016-07-08] MEDS: QUEtiapine XR TAB* 200 MG PO SCH (20:12)
[2016-07-08] MEDS: QUEtiapine XR TAB* 300 MG PO SCH (20:12)
[2016-07-08] MEDS: Oral Rinse (Biotene)(NF) 237 ML or 473 ML ORAL RINSE BTL MT SCH (21:28)
[2016-07-09] MEDS: Ibuprofen TAB* 400 MG PO PRN ×3 (00:24→20:26)
[2016-07-09] MEDS: Oseltamivir CAP* 75 MG PO SCH (10:49)
[2016-07-09] MEDS ORDERED: chlorproMAZINE TAB* 100 MG ONE (11:39)
[2016-07-09] MEDS ORDERED: chlorproMAZINE TAB* 100 MG PO ONE (11:40)
[2016-07-09] MEDS: Benzocaine/Menthol LOZ* 1 LOZENGE PO PRN (11:40)
[2016-07-09] MEDS ORDERED: chlorproMAZINE INJ* 25 MG/ML 2 ML (50 MG) IM PRN (11:41)
[2016-07-09] MEDS: QUEtiapine XR TAB* 300 MG PO SCH (20:26)
[2016-07-09] MEDS: QUEtiapine XR TAB* 200 MG PO SCH (20:26)
[2016-07-09] MEDS: Nicotine GUM* 2 MG PO PRN (20:27)
[2016-07-09] MEDS ORDERED: Al Hydrox/Mg Hydrox/Simet LIQ* 30 ML UDC ONE (23:42)
[2016-07-10] MEDS: Oral Rinse (Biotene)(NF) 237 ML or 473 ML ORAL RINSE BTL MT SCH ×2 (00:42→07:43)
[2016-07-10] MEDS: Benzocaine/Menthol LOZ* 1 LOZENGE PO PRN ×2 (02:49→10:58)
[2016-07-10] MEDS: Oseltamivir CAP* 75 MG PO SCH (07:43)
[2016-07-10] MEDS: Al Hydrox/Mg Hydrox/Simet LIQ* 30 ML UDC PO PRN ×2 (10:58→21:52)
[2016-07-10] MEDS: Ibuprofen TAB* 400 MG PO PRN ×2 (10:58→23:20)
--- NOTE | 2016-07-10 14:42 | PN ---
Subjective - Subjective Service Type: 07388 Hosp care 25 min moderate complexity Subjective: Guzman is wearing a glove under his hat due to mildly psychotic concerns. His mother has expressed concern that he has in the past done well on low dose Clozaril, and may not do as well on the Seroquel he has agreed to after refusing Clozaril. He is concerned about getting unleavened food in observance of a Taoist holiday. He is considering rescinding his court request to allow us to work on placement into stable housing. He is first in line with [facility] review, but housing is unlikely from that for another couple weeks. He was concerned he had food poisoning from eggs he ate. He gave odd report of registering nonexistent objects across multple senses, but denied this was hallucinatory experience. Objective - Appearance Appearance: Healthy Appearing Dysmorphic Features: No Hygiene: Normal Grooming: Fairly Well Kept - Behavior Psychomotor Activities: Normal Exhibits Abnormal Movement: No - Attitude and Relatedness Attitude and Relatedness: Cooperative Eye Contact: Fair - Speech Quality: Unpressured Latencies: Normal Quantity: Appropriate - Mood Patient's Decription of Mood: "A little claustrophobic" - Affect Observed Affect: Fair Affect Consistent with: Euthymia - Thought Process Patient's Thought Process: Coherent, Goal Directed, Disorganized - mildly Thought Content: Yes Paranoid Ideation, No Passive Wish, No Suicidal Planning, No Homicidal Ideation - Sensorium Experiencing Hallucinations: No, Sensorium is Clear Type of Hallucinations: Visual: No, Auditory: No, Command: No - Level of Consciousness Level of Consciousness: Alert Orientation: Yes Intact, Yes Orientated to Time, Yes Orientated to Place, Yes Orientated to Person - Impulse Control Impulse Control: Intact - Insight and Judgement Insight and Judgement: Impaired - Group Participation Particating in Group Activities: No - Medication Management Medication Management Adherence: Yes Assessment - Assessment Merits Inpatient Hospitalization: For Immediate Safety, For Stabilization, For Discharge Planning, Pending Safe DC Plan Inpatient DSM-IV Dx: Schizophrenia; polysubstance abuse in remission; rule out PTSD. Clinical Impression: Mr. Leonardo is a 26-year-old, single man who is actively paranoid and delusional with an exacerbation of schizophrenia likely due to medication noncompliance. He has a history of four prior psychiatric hospitalizations and has moved to the area in part because of reported conflict in his relationship with his mother who lives in the [facility] area. Today Edgard stated that he has thought of suicide, but not recently, but has never arranged any means for carrying out an attempt, and has been deterred by the thought of how it would affect his family. 1.20.17 Today Edgard requests a change of meds as he says he has responded well in the past to Zyprexa, contradicting report from Dr Guerrier. He complained of intolerable anxiety after taking Invega at bedtime yesterday. He prefers not to take Clozaril. We will be continuing to gather collateral as he permits, with likely most useful contact being with his physician mother. 1.23.17 Remains disorganized at a psychotic level with no insight. Continue to treat. 1.24.17 Starting to show some signs of increased alliance and insight, asking for medication changes to address psychotic illness. 1.25.17 Continues to demonstrate increased alliance and insight, albeit in an ingratiating tone. Will consider with treatment team requests to wear yamaka and to go out on staff pass. Will add prn Ambien, but with understanding that this is not intended to replace Zyprexa, which already aids sleep per his report. May be near to planning for d/c to f/u with [facility]. 1.27.17 Guzman has improved relating style and decreased signs of psychotic exacerbation today. He has moved from being wary of all suggestions regarding med changes and other aspects of care, to a more collaborative stance today, and has agreed to a cross-taper from Zyprexa to Clozaril, in recognition of report from his mother and his past psychiatrist that he has functioned best on low dose Clozaril 50 mg at bedtime, so this is my target for cross-tapering off Zyprexa onto Clozaril. He is pleasant and collaborative with care, med, meal and group compliant. 2.6.17 Resuming care today after a week away from the unit. Had refused Clozaril, so switched to Seroquel, now at 500 mg nightly. Still psychotic and moderately disorganized, though pleasant and collaborative. Agreeable to further dose increase of Seroquel, but if this is ineffective, will revisit Clozaril, given history of having done well on low dose. Plan - Plan Treatment Plan: Name: EDGARD LEONARDO Birthdate: 1990 [id number] Increase Seroquel to 600 mg HS. Ask nutrition to reconsult about concerns re food poisoning and observance of Taoist holiday with all unleavened bread. Monitor MS and safety. Encourage groups and milieu. D/C is likely to care with [facility], but housing is an impeding issue with Aunt concerned about severity of his mental illness presenting more challenges than she thought when she agreed to his coming from [facility] to live with her. [facility] in process, will need temporary housing till this comes through with more permanent housing. Medications: Current Medications Al Hydrox/Mg Hydrox/Simethicone (Maalox Plus*) 30 ml PO Q4H PRN PRN Reason: INDIGESTION Last Admin: 07/10/16 10:58 Dose: 30 ml Ibuprofen (Motrin Tab*) 400 mg PO Q6H PRN PRN Reason: PAIN Last Admin: 07/10/16 10:58 Dose: 400 mg Magnesium Hydroxide (Milk Of Magnesia Liq*) 30 ml PO Q6H PRN PRN Reason: CONSTIPATION Multi-Ingredient Mouthwash/Gargle (Biotene Dry Mouth Oral Rinse(Nf)) 15 ml MT . DIRECTED [facility] Last Admin: 07/10/16 07:43 Dose: 15 ml Nicotine (Nicotine Inhaler*) 10 mg INH Q2H PRN PRN Reason: CRAVING Last Admin: 07/06/16 06:10 Dose: 10 mg Nicotine Polacrilex (Nicotine Gum*) 2 mg PO Q2H PRN PRN Reason: CRAVINGS Last Admin: 07/09/16 20:27 Dose: 2 mg Oseltamivir Phosphate (Tamiflu Cap*) 75 mg PO DAILY [facility] Stop: 07/15/16 09:01 Last Admin: 07/10/16 07:43 Dose: 75 mg Quetiapine Fumarate (Seroquel Xr Tab*) 200 mg PO BEDTIME [facility] Last Admin: 07/09/16 20:26 Dose: 200 mg Quetiapine Fumarate (Seroquel Xr Tab*) 300 mg PO BEDTIME [facility] Last Admin: 07/09/16 20:26 Dose: 300 mg Throat Lozenges (Chloraseptic Ricci*) 1 ricci PO Q4H PRN PRN Reason: SORE THROAT/COUGH Last Admin: 07/10/16 10:58 Dose: 1 ricci - Discharge Plan Discharge Plan: Outpatient Follow Up Outpatient Program: [facility]
[2016-07-10] MEDS: QUEtiapine XR TAB* 200 MG PO SCH (20:18)
[2016-07-10] MEDS: QUEtiapine XR TAB* 300 MG PO SCH (20:18)
[2016-07-11] MEDS: Ibuprofen TAB* 400 MG PO PRN (09:09)
[2016-07-11] MEDS: Oseltamivir CAP* 75 MG PO SCH (09:10)
--- NOTE | 2016-07-11 12:53 | PN ---
MHU: Group Therapy Note - Service Type Service Type: [id number] Group Psychotherapy - Cognitive Behavioral Group Therapy ( CBT):Patient attended CBT programming this morning and presented with flat affect that did not vary with discussion. Although responsive to direct prompts to respond to questions, patient did not engage in spontaneous conversation.
[2016-07-11] MEDS: Benzocaine/Menthol LOZ* 1 LOZENGE PO PRN ×2 (14:04→22:55)
[2016-07-11] MEDS ORDERED: CloZAPine TAB* 25 MG TAB PO SCH (17:00)
[2016-07-11] MEDS: QUEtiapine XR TAB* 300 MG PO SCH (20:59)
[2016-07-12 07:30] LABS: Hematocrit 40 % (42-52); Hemoglobin 13.5 g/dl (14.0-18.0); Mean Corpuscular HGB Conc 34 g/dl (31-36); Mean Corpuscular Hemoglobin 30 pg (27-31); Mean Corpuscular Volume 88 fL (80-94); Mean Platelet Volume 9 um3 (7.4-10.4); Red Blood Count 4.51 10^6/ul (4.0-5.4); Red Cell Distribution Width 13 % (10.5-15); White Blood Count 5.8 10^3/ul (3.5-10.8)
[2016-07-12] MEDS: Oral Rinse (Biotene)(NF) 237 ML or 473 ML ORAL RINSE BTL MT SCH (08:30)
[2016-07-12] MEDS: Ibuprofen TAB* 400 MG PO PRN (13:24)
--- NOTE | 2016-07-12 14:06 | PN ---
Subjective - Subjective Service Type: 42170 Hosp care 25 min moderate complexity Subjective: Edgard continues to be disorganized and psychotic, though collaborative. He reports today feeling fatigued, perhaps related to resuming clozapine. He asks to be able to research blood on the computer. He has no physical complaints. Objective - Appearance Appearance: Healthy Appearing Dysmorphic Features: No Hygiene: Normal Grooming: Well Kept - Behavior Psychomotor Activities: Normal Exhibits Abnormal Movement: No - Attitude and Relatedness Attitude and Relatedness: Psychotically Related Eye Contact: Fair - Speech Quality: Unpressured Latencies: Normal Quantity: Appropriate - Mood Patient's Decription of Mood: "Okay" - Affect Observed Affect: Fair Affect Consistent with: Euthymia - Thought Process Patient's Thought Process: Coherent, Goal Directed, Disorganized - mildly to moderately Thought Content: Yes Paranoid Ideation, No Passive Wish, No Suicidal Planning, No Homicidal Ideation - Sensorium Experiencing Hallucinations: No, Sensorium is Clear Type of Hallucinations: Visual: No, Auditory: No, Command: No - Level of Consciousness Level of Consciousness: Alert Orientation: Yes Intact, Yes Orientated to Time, Yes Orientated to Place, Yes Orientated to Person - Impulse Control Impulse Control: Intact - Insight and Judgement Insight and Judgement: Impaired - Group Participation Particating in Group Activities: Yes Group Participation Comments: but only less focused groups (recreation, community meeting) - Medication Management Medication Management Adherence: Yes Assessment - Assessment Merits Inpatient Hospitalization: For Immediate Safety, For Stabilization, For Discharge Planning Inpatient DSM-IV Dx: Schizophrenia; polysubstance abuse in remission; rule out PTSD. Clinical Impression: Mr. Leonardo is a 26-year-old, single man who is actively paranoid and delusional with an exacerbation of schizophrenia likely due to medication noncompliance. He has a history of four prior psychiatric hospitalizations and has moved to the area in part because of reported conflict in his relationship with his mother who lives in the [facility]. Today Edgard stated that he has thought of suicide, but not recently, but has never arranged any means for carrying out an attempt, and has been deterred by the thought of how it would affect his family. 06.23.16 Today Edgard requests a change of meds as he says he has responded well in the past to Zyprexa, contradicting report from Dr Guerrier. He complained of intolerable anxiety after taking Invega at bedtime yesterday. He prefers not to take Clozaril. We will be continuing to gather collateral as he permits, with likely most useful contact being with his physician mother. 1..17 Remains disorganized at a psychotic level with no insight. Continue to treat. 1..17 Starting to show some signs of increased alliance and insight, asking for medication changes to address psychotic illness. ..17 Continues to demonstrate increased alliance and insight, albeit in an ingratiating tone. Will consider with treatment team requests to wear yamaka and to go out on staff pass. Will add prn Ambien, but with understanding that this is not intended to replace Zyprexa, which already aids sleep per his report. May be near to planning for d/c to f/u with [facility]. 06.30.17 Guzman has improved relating style and decreased signs of psychotic exacerbation today. He has moved from being wary of all suggestions regarding med changes and other aspects of care, to a more collaborative stance today, and has agreed to a cross-taper from Zyprexa to Clozaril, in recognition of report from his mother and his past psychiatrist that he has functioned best on low dose Clozaril 50 mg at bedtime, so this is my target for cross-tapering off Zyprexa onto Clozaril. He is pleasant and collaborative with care, med, meal and group compliant. 2.6.17 Resuming care today after a week away from the unit. Had refused Clozaril, so switched to Seroquel, now at 500 mg nightly. Still psychotic and moderately disorganized, though pleasant and collaborative. Agreeable to further dose increase of Seroquel, but if this is ineffective, will revisit Clozaril, given history of having done well on low dose. 2.8.17 Has again agreed to Clozaril, so we are titrating up Clozaril, down Seroquel, with plan to leave on Seroquel prn agitation/insomnia per patient request. Will hold off on computer privileges until better organized. Domiciling main issue in preparation for discharge, as he cannot return to mother's or aunt's home unless negotiations yield agreement from him and them. Ultimate housing goal is assisted living at [place]. Is med compliant, not attending organized groups. Plan - Plan Treatment Plan: Name: EDGARD LEONARDO Birthdate: 1990 [id number] Decrease Seroquel to 200 mg HS. Increase Clozaril to 50 mg daily. Monitor MS and safety. Encourage groups and milieu. D/C is likely to care with [facility], but housing is an impeding issue with Aunt concerned about severity of his mental illness presenting more challenges than she thought when she agreed to his coming from [facility] to live with her. SPOE in process, will need temporary housing till this comes through with more permanent housing. Medications: Current Medications Al Hydrox/Mg Hydrox/Simethicone (Maalox Plus*) 30 ml PO Q4H PRN PRN Reason: INDIGESTION Last Admin: 07/10/16 21:52 Dose: 30 ml Clozapine (Clozapine Tab*) 25 mg PO DAILY@1700 [facility] Last Admin: 07/11/16 17:15 Dose: 25 mg Ibuprofen (Motrin Tab*) 400 mg PO Q6H PRN PRN Reason: PAIN Last Admin: 07/12/16 13:24 Dose: 400 mg Magnesium Hydroxide (Milk Of Magnesia Liq*) 30 ml PO Q6H PRN PRN Reason: CONSTIPATION Multi-Ingredient Mouthwash/Gargle (Biotene Dry Mouth Oral Rinse(Nf)) 15 ml MT . DIRECTED [facility] Last Admin: 07/12/16 08:30 Dose: 15 ml Nicotine (Nicotine Inhaler*) 10 mg INH Q2H PRN PRN Reason: CRAVING Last Admin: 07/06/16 06:10 Dose: 10 mg Nicotine Polacrilex (Nicotine Gum*) 2 mg PO Q2H PRN PRN Reason: CRAVINGS Last Admin: 07/09/16 20:27 Dose: 2 mg Quetiapine Fumarate (Seroquel Xr Tab*) 300 mg PO BEDTIME [facility] Last Admin: 07/11/16 20:59 Dose: 300 mg Throat Lozenges (Chloraseptic Ricci*) 1 ricci PO Q4H PRN PRN Reason: SORE THROAT/COUGH Last Admin: 07/11/16 22:55 Dose: 1 ricci - Discharge Plan Discharge Plan: Outpatient Follow Up Outpatient Program: [facility]
[2016-07-12] MEDS ORDERED: CloZAPine TAB* 25 MG TAB PO SCH (14:08)
[2016-07-12] MEDS ORDERED: QUEtiapine XR TAB* 200 MG PO SCH (14:09)
[2016-07-13] MEDS: Oral Rinse (Biotene)(NF) 237 ML or 473 ML ORAL RINSE BTL MT SCH (08:32)
[2016-07-13] MEDS: Al Hydrox/Mg Hydrox/Simet LIQ* 30 ML UDC PO PRN (10:07)
--- NOTE | 2016-07-13 11:34 | PN ---
[facility]: Group Therapy Note - Service Type Service Type: 43437 Group Psychotherapy - Cognitive Behavioral Group Therapy ( CBT):Patient was attentive and participatory in CBT programming this morning, and remained in good behavioral control. Patient expressed positive insights regarding relevant treatment interventions and goals.
[2016-07-13] MEDS: CloZAPine TAB* 25 MG TAB PO SCH (20:05)
[2016-07-13] MEDS: Ibuprofen TAB* 400 MG PO PRN (20:39)
[2016-07-13] MEDS: Benzocaine/Menthol LOZ* 1 LOZENGE PO PRN (20:39)
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
[2016-07-14] MEDS: CloZAPine TAB* 25 MG TAB PO SCH (20:26)
[2016-07-15] MEDS: CloZAPine TAB* 25 MG TAB PO SCH (20:16)
[2016-07-15] MEDS: QUEtiapine XR TAB* 200 MG PO PRN (22:29)
[2016-07-16] MEDS: CloZAPine TAB* 25 MG TAB PO SCH ×2 (08:36→20:09)
[2016-07-16] MEDS: Ibuprofen TAB* 400 MG PO PRN (16:59)
[2016-07-16] MEDS: QUEtiapine XR TAB* 200 MG PO PRN (22:03)
[2016-07-17] MEDS: CloZAPine TAB* 25 MG TAB PO SCH ×2 (09:15→20:02)
--- NOTE | 2016-07-17 18:19 | PN ---
Subjective - Subjective Service Type: 61113 Hosp care 15 min low complexity Subjective: Guzman complains of sedation/low energy with Clozaril. He is asking for discharge soon. HE agrees to continue Clozaril for now at 75 mg daily, but would like to consider returning to 50 mg daily if he continues to feel fatigued. He asks that we change dosing to 25 mg at 1800, 50 mg at 2100 starting tomorrow. Objective - Appearance Appearance: Healthy Appearing Dysmorphic Features: No Hygiene: Normal Grooming: Well Kept - Behavior Psychomotor Activities: Normal Exhibits Abnormal Movement: No - Attitude and Relatedness Attitude and Relatedness: Cooperative Eye Contact: Good - Speech Quality: Unpressured Latencies: Normal Quantity: Appropriate - Mood Patient's Decription of Mood: "Optimistic" - Affect Observed Affect: Fair Affect Consistent with: Euthymia - Thought Process Patient's Thought Process: Coherent, Goal Directed Thought Content: No Passive Wish, No Suicidal Planning, No Homicidal Ideation, No Paranoid Ideation - Sensorium Experiencing Hallucinations: No, Sensorium is Clear Type of Hallucinations: Visual: No, Auditory: No, Command: No - Level of Consciousness Level of Consciousness: Alert Orientation: Yes Intact, Yes Orientated to Time, Yes Orientated to Place, Yes Orientated to Person - Impulse Control Impulse Control: Intact - Insight and Judgement Insight and Judgement: Poor - Group Participation Particating in Group Activities: Yes - Medication Management Medication Management Adherence: Yes Assessment - Assessment Merits Inpatient Hospitalization: For Stabilization, Consolidate Improvements, For Discharge Planning Inpatient DSM-IV Dx: Schizophrenia; polysubstance abuse in remission; rule out PTSD. Clinical Impression: Mr. Leonardo is a 26-year-old, single man who is actively paranoid and delusional with an exacerbation of schizophrenia likely due to medication noncompliance. He has a history of four prior psychiatric hospitalizations and has moved to the area in part because of reported conflict in his relationship with his mother who lives in the [facility]. Today Edgard stated that he has thought of suicide, but not recently, but has never arranged any means for carrying out an attempt, and has been deterred by the thought of how it would affect his family. 06.23.16 Today Edgard requests a change of meds as he says he has responded well in the past to Zyprexa, contradicting report from Dr Guerrier. He complained of intolerable anxiety after taking Invega at bedtime yesterday. He prefers not to take Clozaril. We will be continuing to gather collateral as he permits, with likely most useful contact being with his physician mother. 06.26.17 Remains disorganized at a psychotic level with no insight. Continue to treat. 06.27.17 Starting to show some signs of increased alliance and insight, asking for medication changes to address psychotic illness. 06.28.17 Continues to demonstrate increased alliance and insight, albeit in an ingratiating tone. Will consider with treatment team requests to wear yamaka and to go out on staff pass. Will add prn Ambien, but with understanding that this is not intended to replace Zyprexa, which already aids sleep per his report. May be near to planning for d/c to f/u with [facility]. 06.30.17 Guzman has improved relating style and decreased signs of psychotic exacerbation today. He has moved from being wary of all suggestions regarding med changes and other aspects of care, to a more collaborative stance today, and has agreed to a cross-taper from Zyprexa to Clozaril, in recognition of report from his mother and his past psychiatrist that he has functioned best on low dose Clozaril 50 mg at bedtime, so this is my target for cross-tapering off Zyprexa onto Clozaril. He is pleasant and collaborative with care, med, meal and group compliant. 2.6.17 Resuming care today after a week away from the unit. Had refused Clozaril, so switched to Seroquel, now at 500 mg nightly. Still psychotic and moderately disorganized, though pleasant and collaborative. Agreeable to further dose increase of Seroquel, but if this is ineffective, will revisit Clozaril, given history of having done well on low dose. 2.8.17 Has again agreed to Clozaril, so we are titrating up Clozaril, down Seroquel, with plan to leave on Seroquel prn agitation/insomnia per patient request. Will hold off on computer privileges until better organized. Domiciling main issue in preparation for discharge, as he cannot return to mother's or aunt's home unless negotiations yield agreement from him and them. Ultimate housing goal is assisted living at [place]. Is med compliant, not attending organized groups. 2.10.17 Today Guzman continues to report hyperreligious and diffusely paranoid delusional thoughts, including concerns about violation of tenets of his Catholic mina leading to odd requests for over the top interventions. He is calm and collaborative. He denies any side effects of medications. He agrees to possible discharge to mother's home. 2 Guzman complained today of fatigue at 75 mg Clozaril. He is asking to be discharged soon. He has made significant gains against delusions and cognitive- behavioral disorganization. Family meeting is being planned for this week to help organize supports after discharge. Plan - Plan Treatment Plan: Name: EDGARD LEONARDO Birthdate: 1990 [id number] Continue Seroquel 200 mg HS PRN agitation/psychosis/insomnia. Continue Clozaril at 75 mg daily. Monitor MS and safety. Encourage groups and milieu. D/C is likely to care with [facility], but housing is an impeding issue with Aunt concerned about severity of his mental illness presenting more challenges than she thought when she agreed to his coming from [facility] to live with her. Considering domiciling with mother. SPOE in process, will need temporary housing till this comes through with more permanent housing. Medications: Current Medications Al Hydrox/Mg Hydrox/Simethicone (Maalox Plus*) 30 ml PO Q4H PRN PRN Reason: INDIGESTION Last Admin: 07/13/16 10:07 Dose: 30 ml Clozapine (Clozapine Tab*) 37.5 mg PO BID [facility] Last Admin: 07/17/16 09:15 Dose: 37.5 mg Ibuprofen (Motrin Tab*) 400 mg PO Q6H PRN PRN Reason: PAIN Last Admin: 07/16/16 16:59 Dose: 400 mg Magnesium Hydroxide (Milk Of Magnesia Liq*) 30 ml PO Q6H PRN PRN Reason: CONSTIPATION Multi-Ingredient Mouthwash/Gargle (Biotene Dry Mouth Oral Rinse(Nf)) 15 ml MT . DIRECTED [facility] Last Admin: 07/13/16 08:32 Dose: 15 ml Nicotine (Nicotine Inhaler*) 10 mg INH Q2H PRN PRN Reason: CRAVING Last Admin: 07/06/16 06:10 Dose: 10 mg Nicotine Polacrilex (Nicotine Gum*) 2 mg PO Q2H PRN PRN Reason: CRAVINGS Last Admin: 07/09/16 20:27 Dose: 2 mg Quetiapine Fumarate (Seroquel Xr Tab*) 200 mg PO BEDTIME PRN PRN Reason: AGITATION/INSOMNIA Last Admin: 07/16/16 22:03 Dose: 200 mg Throat Lozenges (Chloraseptic Ricci*) 1 ricci PO Q4H PRN PRN Reason: SORE THROAT/COUGH Last Admin: 07/13/16 20:39 Dose: 1 ricci - Discharge Plan Discharge Plan: Outpatient Follow Up Outpatient Program: [facility]
[2016-07-17] MEDS: Ibuprofen TAB* 400 MG PO PRN (21:12)
[2016-07-18] MEDS: CloZAPine TAB* 25 MG TAB PO SCH ×2 (08:32→20:05)
[2016-07-18 14:08] LABS: Hematocrit 41 % (42-52); Hemoglobin 14.1 g/dl (14.0-18.0); Mean Corpuscular HGB Conc 34 g/dl (31-36); Mean Corpuscular Hemoglobin 30 pg (27-31); Mean Corpuscular Volume 87 fL (80-94); Mean Platelet Volume 8 um3 (7.4-10.4); Red Blood Count 4.75 10^6/ul (4.0-5.4); Red Cell Distribution Width 13 % (10.5-15); White Blood Count 6.6 10^3/ul (3.5-10.8)
[2016-07-18] MEDS: QUEtiapine XR TAB* 200 MG PO PRN (22:29)
[2016-07-19] MEDS: CloZAPine TAB* 25 MG TAB PO SCH (09:27)
--- NOTE | 2016-07-19 13:57 | PN ---
Subjective - Subjective Service Type: 60478 Hosp care 15 min low complexity Subjective: Guzman reports still feeling tired from low dose of Clozaril, would like to decrease the dose. Took 200 mg prn of Seroquel last night. He has no other physical complaint. Objective - Appearance Appearance: Healthy Appearing Dysmorphic Features: No Hygiene: Normal Grooming: Well Kept - Behavior Psychomotor Activities: Normal Exhibits Abnormal Movement: No - Attitude and Relatedness Attitude and Relatedness: Well Related Eye Contact: Good - Speech Quality: Unpressured Latencies: Normal Quantity: Appropriate - Mood Patient's Decription of Mood: "Pretty sedated" - Affect Observed Affect: Fair Affect Consistent with: Euthymia - Thought Process Patient's Thought Process: Coherent, Goal Directed Thought Content: No Passive Wish, No Suicidal Planning, No Homicidal Ideation, No Paranoid Ideation - Sensorium Experiencing Hallucinations: No, Sensorium is Clear Type of Hallucinations: Visual: No, Auditory: No, Command: No - Level of Consciousness Level of Consciousness: Alert Orientation: Yes Intact, Yes Orientated to Time, Yes Orientated to Place, Yes Orientated to Person - Impulse Control Impulse Control: Intact - Insight and Judgement Insight and Judgement: Poor - Group Participation Particating in Group Activities: Yes Group Participation Comments: but few of them - Medication Management Medication Management Adherence: Yes Assessment - Assessment Merits Inpatient Hospitalization: For Stabilization, For Discharge Planning Inpatient DSM-IV Dx: Schizophrenia; polysubstance abuse in remission; rule out PTSD. Clinical Impression: Mr. Leonardo is a 26-year-old, single man who is actively paranoid and delusional with an exacerbation of schizophrenia likely due to medication noncompliance. He has a history of four prior psychiatric hospitalizations and has moved to the area in part because of reported conflict in his relationship with his mother who lives in the [facility]. Today Edgard stated that he has thought of suicide, but not recently, but has never arranged any means for carrying out an attempt, and has been deterred by the thought of how it would affect his family. 06.23.16 Today Edgard requests a change of meds as he says he has responded well in the past to Zyprexa, contradicting report from Dr Guerrier. He complained of intolerable anxiety after taking Invega at bedtime yesterday. He prefers not to take Clozaril. We will be continuing to gather collateral as he permits, with likely most useful contact being with his physician mother. 1..17 Remains disorganized at a psychotic level with no insight. Continue to treat. 1..17 Starting to show some signs of increased alliance and insight, asking for medication changes to address psychotic illness. 1..17 Continues to demonstrate increased alliance and insight, albeit in an ingratiating tone. Will consider with treatment team requests to wear yamaka and to go out on staff pass. Will add prn Ambien, but with understanding that this is not intended to replace Zyprexa, which already aids sleep per his report. May be near to planning for d/c to f/u with [facility]. 1.17 Guzman has improved relating style and decreased signs of psychotic exacerbation today. He has moved from being wary of all suggestions regarding med changes and other aspects of care, to a more collaborative stance today, and has agreed to a cross-taper from Zyprexa to Clozaril, in recognition of report from his mother and his past psychiatrist that he has functioned best on low dose Clozaril 50 mg at bedtime, so this is my target for cross-tapering off Zyprexa onto Clozaril. He is pleasant and collaborative with care, med, meal and group compliant. 2.6.17 Resuming care today after a week away from the unit. Had refused Clozaril, so switched to Seroquel, now at 500 mg nightly. Still psychotic and moderately disorganized, though pleasant and collaborative. Agreeable to further dose increase of Seroquel, but if this is ineffective, will revisit Clozaril, given history of having done well on low dose. 2.8.17 Has again agreed to Clozaril, so we are titrating up Clozaril, down Seroquel, with plan to leave on Seroquel prn agitation/insomnia per patient request. Will hold off on computer privileges until better organized. Domiciling main issue in preparation for discharge, as he cannot return to mother's or aunt's home unless negotiations yield agreement from him and them. Ultimate housing goal is assisted living at [place]. Is med compliant, not attending organized groups. 2.10.17 Today Guzman continues to report hyperreligious and diffusely paranoid delusional thoughts, including concerns about violation of tenets of his [employer] mina leading to odd requests for over the top interventions. He is calm and collaborative. He denies any side effects of medications. He agrees to possible discharge to mother's home. 2 Guzman complained today of fatigue at 75 mg Clozaril. He is asking to be discharged soon. He has made significant gains against delusions and cognitive- behavioral disorganization. Family meeting is being planned for this week to help organize supports after discharge. 2.17 Showing some signs of improved organization of thought and behavior. Complained of fatigue. Agreeable to only slight decrease of Clozaril dose to correct side effect of fatigue. Plan - Plan Treatment Plan: Name: EDGARD LEONARDO Birthdate: 1990 [id number] Continue Seroquel 200 mg HS PRN agitation/psychosis/insomnia. Reduce Clozaril to 62.5 mg given at bedtime after one time 25 mg dose tonight. Monitor MS and safety. Encourage groups and milieu. D/C is [facility] to care with [facility]. With [facility] in process, touring [facility] tomorrow at 10. Family meeting Sunday at 11. Medications: Current Medications Al Hydrox/Mg Hydrox/Simethicone (Maalox Plus*) 30 ml PO Q4H PRN PRN Reason: INDIGESTION Last Admin: 07/13/16 10:07 Dose: 30 ml Clozapine (Clozapine Tab*) 25 mg PO ONCE ONE Stop: 07/19/16 13:50 Clozapine (Clozapine Tab*) 62.5 mg PO BEDTIME MARIE Ibuprofen (Motrin Tab*) 400 mg PO Q6H PRN PRN Reason: PAIN Last Admin: 07/17/16 21:12 Dose: 400 mg Magnesium Hydroxide (Milk Of Magnesia Liq*) 30 ml PO Q6H PRN PRN Reason: CONSTIPATION Multi-Ingredient Mouthwash/Gargle (Biotene Dry Mouth Oral Rinse(Nf)) 15 ml MT . DIRECTED MARIE Last Admin: 07/13/16 08:32 Dose: 15 ml Nicotine (Nicotine Inhaler*) 10 mg INH Q2H PRN PRN Reason: CRAVING Last Admin: 07/06/16 06:10 Dose: 10 mg Nicotine Polacrilex (Nicotine Gum*) 2 mg PO Q2H PRN PRN Reason: CRAVINGS Last Admin: 07/09/16 20:27 Dose: 2 mg Quetiapine Fumarate (Seroquel Xr Tab*) 200 mg PO BEDTIME PRN PRN Reason: AGITATION/INSOMNIA Last Admin: 07/18/16 22:29 Dose: 200 mg Throat Lozenges (Chloraseptic Ricci*) 1 ricci PO Q4H PRN PRN Reason: SORE THROAT/COUGH Last Admin: 07/13/16 20:39 Dose: 1 ricci - Discharge Plan Discharge Plan: Outpatient Follow Up Outpatient Program: [facility]
[2016-07-19] MEDS ORDERED: CloZAPine TAB* 25 MG TAB PO ONE (21:00)
[2016-07-19] MEDS: QUEtiapine XR TAB* 200 MG PO PRN (22:03)
[2016-07-20] MEDS ORDERED: CloZAPine TAB* 25 MG TAB PO SCH (21:00)
--- NOTE | 2016-07-21 12:34 | PN ---
Subjective - Subjective Service Type: 82616 Hosp care 15 min low complexity Subjective: Edgard reports continuing to believe in some way that children were exsanguinated in his Aunt's wine cellar. He reluctantly agrees to increased dose of Clozaril targeting psychotic symptoms, but says that he is at peace with his psychosis so is not firmly committed to taking medication to attempt to reduce and eliminate it. He continues to report that he feels tired due to the Clozaril. Objective - Appearance Appearance: Healthy Appearing Dysmorphic Features: No Hygiene: Normal Grooming: Fairly Well Kept - Behavior Psychomotor Activities: Normal Exhibits Abnormal Movement: No - Attitude and Relatedness Attitude and Relatedness: Minimally Cooperative Eye Contact: Fair - Speech Quality: Unpressured Latencies: Normal Quantity: Appropriate - Mood Patient's Decription of Mood: "Depressed" - Affect Observed Affect: Depressed Affect Consistent with: Dysphoria - Thought Process Patient's Thought Process: Coherent, Goal Directed Thought Content: Yes Passive Wish, No Suicidal Planning, No Homicidal Ideation, No Paranoid Ideation - Sensorium Experiencing Hallucinations: No, Sensorium is Clear Type of Hallucinations: Visual: No, Auditory: No, Command: No - Level of Consciousness Level of Consciousness: Alert Orientation: Yes Intact, Yes Orientated to Time, Yes Orientated to Place, Yes Orientated to Person - Impulse Control Impulse Control: Intact - Insight and Judgement Insight and Judgement: Impaired - Group Participation Particating in Group Activities: Yes - Medication Management Medication Management Adherence: Yes Assessment - Assessment Merits Inpatient Hospitalization: For Immediate Safety, For Stabilization, For Discharge Planning, Pending Safe DC Plan Inpatient DSM-IV Dx: Schizophrenia; polysubstance abuse in remission; rule out PTSD. Clinical Impression: Mr. Leonardo is a 26-year-old, single man who is actively paranoid and delusional with an exacerbation of schizophrenia likely due to medication noncompliance. He has a history of four prior psychiatric hospitalizations and has moved to the area in part because of reported conflict in his relationship with his mother who lives in the [facility] area. Today Edgard stated that he has thought of suicide, but not recently, but has never arranged any means for carrying out an attempt, and has been deterred by the thought of how it would affect his family. 06.23.16 Today Edgard requests a change of meds as he says he has responded well in the past to Zyprexa, contradicting report from Dr Guerrier. He complained of intolerable anxiety after taking Invega at bedtime yesterday. He prefers not to take Clozaril. We will be continuing to gather collateral as he permits, with likely most useful contact being with his physician mother. 1..17 Remains disorganized at a psychotic level with no insight. Continue to treat. 06.27.17 Starting to show some signs of increased alliance and insight, asking for medication changes to address psychotic illness. 06.28.17 Continues to demonstrate increased alliance and insight, albeit in an ingratiating tone. Will consider with treatment team requests to wear yamaka and to go out on staff pass. Will add prn Ambien, but with understanding that this is not intended to replace Zyprexa, which already aids sleep per his report. May be near to planning for d/c to f/u with [facility]. 06.30.17 Guzman has improved relating style and decreased signs of psychotic exacerbation today. He has moved from being wary of all suggestions regarding med changes and other aspects of care, to a more collaborative stance today, and has agreed to a cross-taper from Zyprexa to Clozaril, in recognition of report from his mother and his past psychiatrist that he has functioned best on low dose Clozaril 50 mg at bedtime, so this is my target for cross-tapering off Zyprexa onto Clozaril. He is pleasant and collaborative with care, med, meal and group compliant. 2.6.17 Resuming care today after a week away from the unit. Had refused Clozaril, so switched to Seroquel, now at 500 mg nightly. Still psychotic and moderately disorganized, though pleasant and collaborative. Agreeable to further dose increase of Seroquel, but if this is ineffective, will revisit Clozaril, given history of having done well on low dose. 2.8.17 Has again agreed to Clozaril, so we are titrating up Clozaril, down Seroquel, with plan to leave on Seroquel prn agitation/insomnia per patient request. Will hold off on computer privileges until better organized. Domiciling main issue in preparation for discharge, as he cannot return to mother's or aunt's home unless negotiations yield agreement from him and them. Ultimate housing goal is assisted living at [place]. Is med compliant, not attending organized groups. 2 Today Guzman continues to report hyperreligious and diffusely paranoid delusional thoughts, including concerns about violation of tenets of his [employer] mina leading to odd requests for over the top interventions. He is calm and collaborative. He denies any side effects of medications. He agrees to possible discharge to mother's home. 217 Guzman complained today of fatigue at 75 mg Clozaril. He is asking to be discharged soon. He has made significant gains against delusions and cognitive- behavioral disorganization. Family meeting is being planned for this week to help organize supports after discharge. 215.17 Showing some signs of improved organization of thought and behavior. Complained of fatigue. Agreeable to only slight decrease of Clozaril dose to correct side effect of fatigue. 17 Today Guzman continues to report giving credence to paranoid delusion that children have been exsanguinated in his aunt's home. He agrees reluctantly to increased dose of Clozaril against psychosis, but commitment is low, as he says he is at peace with being psychotic. At family meeting, discharge options of [facility] in [place], versus [facility] here, were discussed. Family reported today that in past hospitalizations against acute psychotic exacerbations, Clozaril doses had been increased to the point that he had been heavily sedated, and 50 mg dose had been achieved in the outpatient setting with reduction of inpatient dose once fully stabilized on higher dose. Plan - Plan Treatment Plan: Name: EDGARD LEONARDO Birthdate: 1990 [id number] Continue Seroquel PRN agitation/psychosis/insomnia. Increase Clozaril to 25 mg given in the morning and 50 mg given at bedtime for total daily dose of 75 mg over the weekend. Monitor MS and safety. Encourage groups and milieu. D/C is likely to care with [facility] while living at [facility], although private facility, [facility], in [place] is being considered by his mother. Medications: Current Medications Al Hydrox/Mg Hydrox/Simethicone (Maalox Plus*) 30 ml PO Q4H PRN PRN Reason: INDIGESTION Last Admin: 07/13/16 10:07 Dose: 30 ml Clozapine (Clozapine Tab*) 50 mg PO BEDTIME MARIE Clozapine (Clozapine Tab*) 25 mg PO DAILY [facility] Clozapine (Clozapine Tab*) 62.5 mg PO BEDTIME [facility] Stop: 07/22/16 03:00 Ibuprofen (Motrin Tab*) 400 mg PO Q6H PRN PRN Reason: PAIN Last Admin: 07/17/16 21:12 Dose: 400 mg Magnesium Hydroxide (Milk Of Magnesia Liq*) 30 ml PO Q6H PRN PRN Reason: CONSTIPATION Multi-Ingredient Mouthwash/Gargle (Biotene Dry Mouth Oral Rinse(Nf)) 15 ml MT . DIRECTED MARIE Last Admin: 07/13/16 08:32 Dose: 15 ml Nicotine (Nicotine Inhaler*) 10 mg INH Q2H PRN PRN Reason: CRAVING Last Admin: 07/06/16 06:10 Dose: 10 mg Nicotine Polacrilex (Nicotine Gum*) 2 mg PO Q2H PRN PRN Reason: CRAVINGS Last Admin: 07/09/16 20:27 Dose: 2 mg Quetiapine Fumarate (Seroquel Xr Tab*) 200 mg PO BEDTIME PRN PRN Reason: AGITATION/INSOMNIA Last Admin: 07/19/16 22:03 Dose: 200 mg Quetiapine Fumarate (Seroquel Tab*) 25 mg PO Q4H PRN PRN Reason: AGITATION/ANXIETY Throat Lozenges (Chloraseptic Ricci*) 1 ricci PO Q4H PRN PRN Reason: SORE THROAT/COUGH Last Admin: 07/13/16 20:39 Dose: 1 ricci - Discharge Plan Discharge Plan: Outpatient Follow Up Outpatient Program: [facility] - versus [facility]
[2016-07-21] MEDS: Oral Rinse (Biotene)(NF) 237 ML or 473 ML ORAL RINSE BTL MT SCH (16:21)
[2016-07-21] MEDS: Benzocaine/Menthol LOZ* 1 LOZENGE PO PRN (18:25)
[2016-07-21] MEDS ORDERED: CloZAPine TAB* 25 MG TAB PO SCH (21:00)
[2016-07-22] MEDS: CloZAPine TAB* 25 MG TAB PO SCH ×2 (10:01→20:53)
[2016-07-22] MEDS: Benzocaine/Menthol LOZ* 1 LOZENGE PO PRN (13:24)
[2016-07-22] MEDS: Ibuprofen TAB* 400 MG PO PRN (13:24)
[2016-07-23] MEDS: CloZAPine TAB* 25 MG TAB PO SCH ×2 (09:40→20:25)
--- NOTE | 2016-07-23 19:44 | PN ---
Progress Note - Progress Note Note: Patient told there are two patients on the unit (did not disclose their names) who have tested positive for Influenza A and I am recommending taking Tamiflu as a prophylactic measure. I made it clear this was optional. He agreed to the treatment after hearing of the indications, risks, benefits and alternatives.
[2016-07-23] MEDS: Benzocaine/Menthol LOZ* 1 LOZENGE PO PRN (20:26)
[2016-07-24] MEDS: CloZAPine TAB* 25 MG TAB PO SCH ×2 (10:34→20:07)
[2016-07-24] MEDS: Oseltamivir CAP* 75 MG PO SCH (12:20)
[2016-07-24] MEDS: Nicotine GUM* 2 MG PO PRN (12:21)
--- NOTE | 2016-07-24 14:34 | PN ---
Subjective - Subjective Service Type: 26895 Hosp care 15 min low complexity Subjective: The patient is oddly related but friendly. He complains that the medication is giving him a "hangover" effect in the morning but it is not intolerable. He feels he is improving and is interested in getting into residential care at the [facility] after discharge. No overt signs of psychosis are noted. Objective - Appearance Appearance: Well Developed/Nourished Dysmorphic Features: No Hygiene: Normal Grooming: Well Kept - Behavior Psychomotor Activities: Normal Exhibits Abnormal Movement: No - Attitude and Relatedness Attitude and Relatedness: Cooperative Eye Contact: Fair - Speech Quality: Unpressured Latencies: Normal Quantity: Terse - Mood Patient's Decription of Mood: "Okay" - Affect Observed Affect: Fair Affect Consistent with: Euthymia - Thought Process Patient's Thought Process: Coherent Thought Content: Yes Paranoid Ideation, No Passive Wish, No Suicidal Planning, No Homicidal Ideation - Sensorium Experiencing Hallucinations: No, Sensorium is Clear Type of Hallucinations: Visual: No, Auditory: No, Command: No - Impulse Control Impulse Control: Tenuous - Insight and Judgement Insight and Judgement: Fair - Group Participation Particating in Group Activities: No - Medication Management Medication Management Adherence: Yes Assessment - Assessment Merits Inpatient Hospitalization: Consolidate Improvements, Pending Safe DC Plan Inpatient DSM-IV Dx: Schizophrenia; polysubstance abuse in remission; rule out PTSD. Clinical Impression: 26 y.o. single white male with a history of schizophrenia admitted with paranoia and delusions in the context of treatment non-adherence. Plan - Plan Treatment Plan: Name: SWAPNA LEONARDO Birthdate: 1990 [id number] Will continue clozapine therapy. Primary team is working on placement issues. Continued Medication Management: Continue Outpt Medication Medications: Current Medications Al Hydrox/Mg Hydrox/Simethicone (Maalox Plus*) 30 ml PO Q4H PRN PRN Reason: INDIGESTION Last Admin: 07/13/16 10:07 Dose: 30 ml Clozapine (Clozapine Tab*) 50 mg PO BEDTIME MARIE Last Admin: 07/23/16 20:25 Dose: 50 mg Clozapine (Clozapine Tab*) 25 mg PO DAILY MARIE Last Admin: 07/24/16 10:34 Dose: 25 mg Ibuprofen (Motrin Tab*) 400 mg PO Q6H PRN PRN Reason: PAIN Last Admin: 07/22/16 13:24 Dose: 400 mg Magnesium Hydroxide (Milk Of Magnesia Liq*) 30 ml PO Q6H PRN PRN Reason: CONSTIPATION Multi-Ingredient Mouthwash/Gargle (Biotene Dry Mouth Oral Rinse(Nf)) 15 ml MT . DIRECTED [facility] Last Admin: 07/21/16 16:21 Dose: 15 ml Nicotine (Nicotine Inhaler*) 10 mg INH Q2H PRN PRN Reason: CRAVING Last Admin: 07/06/16 06:10 Dose: 10 mg Nicotine Polacrilex (Nicotine Gum*) 2 mg PO Q2H PRN PRN Reason: CRAVINGS Last Admin: 07/24/16 12:21 Dose: 2 mg Oseltamivir Phosphate (Tamiflu Cap*) 75 mg PO DAILY [facility] Stop: 08/02/16 09:01 Last Admin: 07/24/16 12:20 Dose: 75 mg Quetiapine Fumarate (Seroquel Xr Tab*) 200 mg PO BEDTIME PRN PRN Reason: AGITATION/INSOMNIA Last Admin: 07/19/16 22:03 Dose: 200 mg Quetiapine Fumarate (Seroquel Tab*) 25 mg PO Q4H PRN PRN Reason: AGITATION/ANXIETY Throat Lozenges (Chloraseptic Ricci*) 1 ricci PO Q4H PRN PRN Reason: SORE THROAT/COUGH Last Admin: 07/23/16 20:26 Dose: 1 ricci - Discharge Plan Discharge Plan: Inpatient Hospitalization
[2016-07-24] MEDS: Benzocaine/Menthol LOZ* 1 LOZENGE PO PRN ×2 (15:16→22:29)
[2016-07-24] MEDS: Ibuprofen TAB* 400 MG PO PRN (17:19)
[2016-07-25] MEDS: QUEtiapine XR TAB* 200 MG PO PRN (00:06)
[2016-07-25] MEDS: Oseltamivir CAP* 75 MG PO SCH (11:05)
[2016-07-25] MEDS: CloZAPine TAB* 25 MG TAB PO SCH ×2 (11:08→20:28)
[2016-07-25 11:31] LABS: Hematocrit 39 % (42-52); Hemoglobin 13.6 g/dl (14.0-18.0); Mean Corpuscular HGB Conc 35 g/dl (31-36); Mean Corpuscular Hemoglobin 30 pg (27-31); Mean Corpuscular Volume 87 fL (80-94); Mean Platelet Volume 8 um3 (7.4-10.4); Red Blood Count 4.52 10^6/ul (4.0-5.4); Red Cell Distribution Width 13 % (10.5-15); White Blood Count 6.8 10^3/ul (3.5-10.8)
[2016-07-25] MEDS: QUEtiapine TAB* 25 MG PO PRN (23:34)
[2016-07-26] MEDS: Oseltamivir CAP* 75 MG PO SCH (08:27)
--- NOTE | 2016-07-26 14:24 | PN ---
Subjective - Subjective Service Type: 43171 Hosp care 15 min low complexity Subjective: Guzman asks for discharge Sunday. He reports remission of delusions about children being harmed in his aunt's home. He reports tolerating the current Clozaril dose. Objective - Appearance Appearance: Healthy Appearing Dysmorphic Features: No Hygiene: Normal Grooming: Well Kept - Behavior Psychomotor Activities: Normal Exhibits Abnormal Movement: No - Attitude and Relatedness Attitude and Relatedness: Well Related Eye Contact: Good - Speech Quality: Unpressured Latencies: Normal Quantity: Appropriate - Mood Patient's Decription of Mood: "Good" - Affect Observed Affect: Fair Affect Consistent with: Euthymia - Thought Process Patient's Thought Process: Coherent, Goal Directed Thought Content: No Passive Wish, No Suicidal Planning, No Homicidal Ideation, No Paranoid Ideation - Sensorium Experiencing Hallucinations: No, Sensorium is Clear Type of Hallucinations: Visual: No, Auditory: No, Command: No - Level of Consciousness Level of Consciousness: Alert Orientation: Yes Intact, Yes Orientated to Time, Yes Orientated to Place, Yes Orientated to Person - Impulse Control Impulse Control: Intact - Insight and Judgement Insight and Judgement: Poor - Group Participation Particating in Group Activities: No - Medication Management Medication Management Adherence: Partial Assessment - Assessment Merits Inpatient Hospitalization: For Stabilization, Consolidate Improvements, For Discharge Planning Inpatient DSM-IV Dx: Schizophrenia; polysubstance abuse in remission; rule out PTSD. Clinical Impression: Mr. Leonardo is a 26-year-old, single man who is actively paranoid and delusional with an exacerbation of schizophrenia likely due to medication noncompliance. He has a history of four prior psychiatric hospitalizations and has moved to the area in part because of reported conflict in his relationship with his mother who lives in the [facility]. Today Edgard stated that he has thought of suicide, but not recently, but has never arranged any means for carrying out an attempt, and has been deterred by the thought of how it would affect his family. 1.20.17 Today Edgard requests a change of meds as he says he has responded well in the past to Zyprexa, contradicting report from Dr Guerrier. He complained of intolerable anxiety after taking Invega at bedtime yesterday. He prefers not to take Clozaril. We will be continuing to gather collateral as he permits, with likely most useful contact being with his physician mother. 1.23.17 Remains disorganized at a psychotic level with no insight. Continue to treat. 06.27.17 Starting to show some signs of increased alliance and insight, asking for medication changes to address psychotic illness. ..17 Continues to demonstrate increased alliance and insight, albeit in an ingratiating tone. Will consider with treatment team requests to wear yamaka and to go out on staff pass. Will add prn Ambien, but with understanding that this is not intended to replace Zyprexa, which already aids sleep per his report. May be near to planning for d/c to f/u with [facility]. 06.30.17 Guzman has improved relating style and decreased signs of psychotic exacerbation today. He has moved from being wary of all suggestions regarding med changes and other aspects of care, to a more collaborative stance today, and has agreed to a cross-taper from Zyprexa to Clozaril, in recognition of report from his mother and his past psychiatrist that he has functioned best on low dose Clozaril 50 mg at bedtime, so this is my target for cross-tapering off Zyprexa onto Clozaril. He is pleasant and collaborative with care, med, meal and group compliant. 2.6.17 Resuming care today after a week away from the unit. Had refused Clozaril, so switched to Seroquel, now at 500 mg nightly. Still psychotic and moderately disorganized, though pleasant and collaborative. Agreeable to further dose increase of Seroquel, but if this is ineffective, will revisit Clozaril, given history of having done well on low dose. 2.8.17 Has again agreed to Clozaril, so we are titrating up Clozaril, down Seroquel, with plan to leave on Seroquel prn agitation/insomnia per patient request. Will hold off on computer privileges until better organized. Domiciling main issue in preparation for discharge, as he cannot return to mother's or aunt's home unless negotiations yield agreement from him and them. Ultimate housing goal is assisted living at [place]. Is med compliant, not attending organized groups. 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 He is calm and collaborative. He denies any side effects of medications. He agrees to possible discharge to mother's home. 2.13.17 Guzman complained today of fatigue at 75 mg Clozaril. He is asking to be discharged soon. He has made significant gains against delusions and cognitive- behavioral disorganization. Family meeting is being planned for this week to help organize supports after discharge. 2.15.17 Showing some signs of improved organization of thought and behavior. Complained of fatigue. Agreeable to only slight decrease of Clozaril dose to correct side effect of fatigue. 2.17.17 Today Guzman continues to report giving credence to paranoid delusion that children have been exsanguinated in his aunt's home. He agrees reluctantly to increased dose of Clozaril against psychosis, but commitment is low, as he says he is at peace with being psychotic. At family meeting, discharge options of [facility] in [place], versus [facility]/[place] here, were discussed. Family reported today that in past hospitalizations against acute psychotic exacerbations, Clozaril doses had been increased to the point that he had been heavily sedated, and 50 mg dose had been achieved in the outpatient setting with reduction of inpatient dose once fully stabilized on higher dose. 2.17 Guzman reports stable remission of psychosis. He would like to have a meeting with his aunt to negtiate discharge there, He is hoping for a Sunday discharge. Plan - Plan Treatment Plan: Name: EDGARD LEONARDO Birthdate: 1990 [id number] Continue Seroquel PRN agitation/psychosis/insomnia. Increase Clozaril to 100 mg nightly per patient preference to consolidate dose to one nightly. Monitor MS and safety. Encourage groups and milieu. D/C had been expected likely to care with [facility] while living at [facility], although private facility, [facility], in [place] is being considered by his mother, and now Guzman would loke consideration for discharge to his aunt's home. Medications: Current Medications Al Hydrox/Mg Hydrox/Simethicone (Maalox Plus*) 30 ml PO Q4H PRN PRN Reason: INDIGESTION Last Admin: 07/13/16 10:07 Dose: 30 ml Clozapine (Clozapine Tab*) 75 mg PO BEDTIME MARIE PRN Reason: Taper Stop: 08/10/16 20:59 Last Admin: 07/25/16 20:28 Dose: 75 mg Ibuprofen (Motrin Tab*) 400 mg PO Q6H PRN PRN Reason: PAIN Last Admin: 07/24/16 17:19 Dose: 400 mg Magnesium Hydroxide (Milk Of Magnesia Liq*) 30 ml PO Q6H PRN PRN Reason: CONSTIPATION Multi-Ingredient Mouthwash/Gargle (Biotene Dry Mouth Oral Rinse(Nf)) 15 ml MT . DIRECTED [facility] Last Admin: 07/21/16 16:21 Dose: 15 ml Nicotine (Nicotine Inhaler*) 10 mg INH Q2H PRN PRN Reason: CRAVING Last Admin: 07/06/16 06:10 Dose: 10 mg Nicotine Polacrilex (Nicotine Gum*) 2 mg PO Q2H PRN PRN Reason: CRAVINGS Last Admin: 07/24/16 12:21 Dose: 2 mg Oseltamivir Phosphate (Tamiflu Cap*) 75 mg PO DAILY [facility] Stop: 08/02/16 09:01 Last Admin: 07/26/16 08:27 Dose: 75 mg Quetiapine Fumarate (Seroquel Xr Tab*) 200 mg PO BEDTIME PRN PRN Reason: AGITATION/INSOMNIA Last Admin: 07/25/16 00:06 Dose: 200 mg Quetiapine Fumarate (Seroquel Tab*) 25 mg PO Q4H PRN PRN Reason: AGITATION/ANXIETY Last Admin: 07/25/16 23:34 Dose: 25 mg Throat Lozenges (Chloraseptic Ricci*) 1 ricci PO Q4H PRN PRN Reason: SORE THROAT/COUGH Last Admin: 07/24/16 22:29 Dose: 1 ricci - Discharge Plan Discharge Plan: Outpatient Follow Up Outpatient Program: [facility]
[2016-07-26] MEDS: CloZAPine TAB* 25 MG TAB PO SCH (20:14)
[2016-07-26] MEDS: QUEtiapine TAB* 25 MG PO PRN (23:12)
[2016-07-27] MEDS: Oseltamivir CAP* 75 MG PO SCH (09:24)
[2016-07-27] MEDS: CloZAPine TAB* 25 MG TAB PO SCH (20:16)
[2016-07-27] MEDS: Ibuprofen TAB* 400 MG PO PRN (20:32)
[2016-07-28] MEDS: Oseltamivir CAP* 75 MG PO SCH (09:17)
[2016-07-28] MEDS: Oral Rinse (Biotene)(NF) 237 ML or 473 ML ORAL RINSE BTL MT SCH (09:18)
--- NOTE | 2016-07-28 11:45 | PN ---
MHU: Group Therapy Note - Service Type Service Type: 80344 Group Psychotherapy - Cognitive Behavioral Group Therapy ( CBT):Patient was attentive and participatory in CBT programming this morning, and remained in good behavioral control. Patient expressed positive insights regarding relevant treatment interventions and goals.
[2016-07-28] MEDS: Benzocaine/Menthol LOZ* 1 LOZENGE PO PRN ×2 (13:10→17:03)
[2016-07-28] MEDS: QUEtiapine TAB* 25 MG PO PRN (17:03)
[2016-07-28] MEDS: QUEtiapine XR TAB* 200 MG PO PRN (20:06)
[2016-07-28] MEDS: CloZAPine TAB* 25 MG TAB PO SCH (20:06)
[2016-07-29] MEDS: Oseltamivir CAP* 75 MG PO SCH (10:04)
[2016-07-29] MEDS: QUEtiapine TAB* 25 MG PO PRN (14:20)
[2016-07-29] MEDS: Benzocaine/Menthol LOZ* 1 LOZENGE PO PRN ×2 (14:20→19:07)
[2016-07-29] MEDS: CloZAPine TAB* 25 MG TAB PO SCH (20:23)
[2016-07-29] MEDS: QUEtiapine XR TAB* 200 MG PO PRN (20:24)
[2016-07-30] MEDS: Benzocaine/Menthol LOZ* 1 LOZENGE PO PRN ×2 (08:53→19:25)
[2016-07-30] MEDS ORDERED: Influenza VAC *QUAD* 2016-17* 0.5 ML SYRINGE IM ONE (10:00)
[2016-07-30] MEDS: CloZAPine TAB* 25 MG TAB PO SCH (20:23)
--- NOTE | 2016-07-31 11:07 | PN ---
MHU: Group Therapy Note - Service Type Service Type: 42752 Group Psychotherapy - Cognitive Behavioral Group Therapy ( CBT):Patient was attentive and participatory in CBT programming this morning, and remained in good behavioral control. Patient expressed positive insights regarding relevant treatment interventions and goals.
--- NOTE | 2016-07-31 15:42 | PN ---
Subjective - Subjective Service Type: 51912 Hosp care 25 min moderate complexity Subjective: Guzman continues to talk with family about living 'anonymously and drug-free", which has them concerned that he may be considering stopping meds and leaving the area. He continues to complain of oversedation at the current dose of Clozaril, but agrees to stick with the increasing doses toward a peak of 200 mg prior to discharge, planned for to [facility] program. He still shows some inflexibility in his communication style, for example continuing to state he hears real voices when I ask him if he hears voices, then asking for a definition of hallucinations after I tell him that's what I mean by 'voices': we've had this conversation multiple times. But overall report is of no continued psychosis, no dangerous intent or plan, and stable mood. Reports drooling and lightheadedness at increasing doses of Clozaril. Objective - Appearance Appearance: Healthy Appearing Dysmorphic Features: No Hygiene: Normal Grooming: Well Kept - Behavior Psychomotor Activities: Normal Exhibits Abnormal Movement: No - Attitude and Relatedness Attitude and Relatedness: Cooperative Eye Contact: Good - Speech Quality: Unpressured Latencies: Normal Quantity: Appropriate - Mood Patient's Decription of Mood: "Improving" - Affect Observed Affect: Good Affect Consistent with: Euthymia - Thought Process Patient's Thought Process: Coherent, Goal Directed Thought Content: No Passive Wish, No Suicidal Planning, No Homicidal Ideation, No Paranoid Ideation - Sensorium Experiencing Hallucinations: No, Sensorium is Clear Type of Hallucinations: Visual: No, Auditory: No, Command: No - Level of Consciousness Level of Consciousness: Alert Orientation: Yes Intact, Yes Orientated to Time, Yes Orientated to Place, Yes Orientated to Person - Impulse Control Impulse Control: Intact - Insight and Judgement Insight and Judgement: Fair - Group Participation Particating in Group Activities: No - Medication Management Medication Management Adherence: Yes Assessment - Assessment Merits Inpatient Hospitalization: For Stabilization, For Discharge Planning Inpatient DSM-IV Dx: Schizophrenia; polysubstance abuse in remission; rule out PTSD. Clinical Impression: Mr. Leonardo is a 26-year-old, single man who is actively paranoid and delusional with an exacerbation of schizophrenia likely due to medication noncompliance. He has a history of four prior psychiatric hospitalizations and has moved to the area in part because of reported conflict in his relationship with his mother who lives in the [facility]. Today Edgard stated that he has thought of suicide, but not recently, but has never arranged any means for carrying out an attempt, and has been deterred by the thought of how it would affect his family. 1.20.17 Today Edgard requests a change of meds as he says he has responded well in the past to Zyprexa, contradicting report from Dr Guerrier. He complained of intolerable anxiety after taking Invega at bedtime yesterday. He prefers not to take Clozaril. We will be continuing to gather collateral as he permits, with likely most useful contact being with his physician mother. 1.23.17 Remains disorganized at a psychotic level with no insight. Continue to treat. 1.24.17 Starting to show some signs of increased alliance and insight, asking for medication changes to address psychotic illness. 1.25.17 Continues to demonstrate increased alliance and insight, albeit in an ingratiating tone. Will consider with treatment team requests to wear yamaka and to go out on staff pass. Will add prn Ambien, but with understanding that this is not intended to replace Zyprexa, which already aids sleep per his report. May be near to planning for d/c to f/u with [facility]. 1.27.17 Guzman has improved relating style and decreased signs of psychotic exacerbation today. He has moved from being wary of all suggestions regarding med changes and other aspects of care, to a more collaborative stance today, and has agreed to a cross-taper from Zyprexa to Clozaril, in recognition of report from his mother and his past psychiatrist that he has functioned best on low dose Clozaril 50 mg at bedtime, so this is my target for cross-tapering off Zyprexa onto Clozaril. He is pleasant and collaborative with care, med, meal and group compliant. 2.6.17 Resuming care today after a week away from the unit. Had refused Clozaril, so switched to Seroquel, now at 500 mg nightly. Still psychotic and moderately disorganized, though pleasant and collaborative. Agreeable to further dose increase of Seroquel, but if this is ineffective, will revisit Clozaril, given history of having done well on low dose. 2.8.17 Has again agreed to Clozaril, so we are titrating up Clozaril, down Seroquel, with plan to leave on Seroquel prn agitation/insomnia per patient request. Will hold off on computer privileges until better organized. Domiciling main issue in preparation for discharge, as he cannot return to mother's or aunt's home unless negotiations yield agreement from him and them. Ultimate housing goal is assisted living at [place]. Is med compliant, not attending organized groups. 2.10.17 Today Guzman continues to report hyperreligious and diffusely paranoid delusional thoughts, including concerns about violation of tenets of his [employer] mina leading to odd requests for over the top interventions. He is calm and collaborative. He denies any side effects of medications. He agrees to possible discharge to mother's home. 2.13.17 Guzman complained today of fatigue at 75 mg Clozaril. He is asking to be discharged soon. He has made significant gains against delusions and cognitive- behavioral disorganization. Family meeting is being planned for this week to help organize supports after discharge. 2.15.17 Showing some signs of improved organization of thought and behavior. Complained of fatigue. Agreeable to only slight decrease of Clozaril dose to correct side effect of fatigue. 2.17.17 Today Guzman continues to report giving credence to paranoid delusion that children have been exsanguinated in his aunt's home. He agrees reluctantly to increased dose of Clozaril against psychosis, but commitment is low, as he says he is at peace with being psychotic. At family meeting, discharge options of [facility] in [place], versus [facility]/[place] here, were discussed. Family reported today that in past hospitalizations against acute psychotic exacerbations, Clozaril doses had been increased to the point that he had been heavily sedated, and 50 mg dose had been achieved in the outpatient setting with reduction of inpatient dose once fully stabilized on higher dose. 2..17 Guzman reports stable remission of psychosis. He would like to have a meeting with his aunt to negtiate discharge there, He is hoping for a Sunday discharge. 2..17 Guzman reports some side effects of lightheadedness and drooling, along with established complaint of fatigue, with Clozaril at doses stepping toward 200 mg daily. He requests tid fingersticks and additional med at night to aid sleep onset and continuation. He is agreeable to plan toward discharge . Will have family meeting on Sunday to coordinate support. Plan - Plan Treatment Plan: Name: EDGARD LEONARDO Birthdate: 1990 [id number] Continue Seroquel PRN agitation/psychosis/insomnia, will not add another sedating medication. Increase Clozaril to low target dose of 200 mg nightly per patient preference to facilitate compliance. Monitor MS and safety. Encourage groups and milieu. D/C to care with [facility] while living at [facility], planned for . Medications: Current Medications Al Hydrox/Mg Hydrox/Simethicone (Maalox Plus*) 30 ml PO Q4H PRN PRN Reason: INDIGESTION Last Admin: 07/13/16 10:07 Dose: 30 ml Clozapine (Clozapine Tab*) 175 mg PO BEDTIME MARIE PRN Reason: Taper Stop: 08/10/16 20:59 Last Admin: 07/30/16 20:23 Dose: 175 mg Ibuprofen (Motrin Tab*) 400 mg PO Q6H PRN PRN Reason: PAIN Last Admin: 07/27/16 20:32 Dose: 400 mg Magnesium Hydroxide (Milk Of Magnesia Liq*) 30 ml PO Q6H PRN PRN Reason: CONSTIPATION Multi-Ingredient Mouthwash/Gargle (Biotene Dry Mouth Oral Rinse(Nf)) 15 ml MT . DIRECTED MARIE Last Admin: 07/28/16 09:18 Dose: 15 ml Nicotine (Nicotine Inhaler*) 10 mg INH Q2H PRN PRN Reason: CRAVING Last Admin: 07/06/16 06:10 Dose: 10 mg Nicotine Polacrilex (Nicotine Gum*) 2 mg PO Q2H PRN PRN Reason: CRAVINGS Last Admin: 07/24/16 12:21 Dose: 2 mg Quetiapine Fumarate (Seroquel Xr Tab*) 200 mg PO BEDTIME PRN PRN Reason: AGITATION/INSOMNIA Last Admin: 07/29/16 20:24 Dose: 200 mg Quetiapine Fumarate (Seroquel Tab*) 25 mg PO Q4H PRN PRN Reason: AGITATION/ANXIETY Last Admin: 07/29/16 14:20 Dose: 25 mg Throat Lozenges (Chloraseptic Ricci*) 1 ricci PO Q4H PRN PRN Reason: SORE THROAT/COUGH Last Admin: 07/30/16 19:25 Dose: 1 ricci - Discharge Plan Discharge Plan: Outpatient Follow Up Outpatient Program: [facility]
[2016-07-31] MEDS: CloZAPine TAB* 25 MG TAB PO SCH (20:55)
[2016-08-01 09:07] LABS: Hematocrit 40 % (42-52); Hemoglobin 13.7 g/dl (14.0-18.0); Mean Corpuscular HGB Conc 34 g/dl (31-36); Mean Corpuscular Hemoglobin 28 pg (27-31); Mean Corpuscular Volume 82 fL (80-94); Mean Platelet Volume 9 um3 (7.4-10.4); Red Blood Count 4.92 10^6/ul (4.0-5.4); Red Cell Distribution Width 19 % (10.5-15); White Blood Count 5.6 10^3/ul (3.5-10.8)
[2016-08-01 09:10] LABS: Add Diff/Slide Review? Slide Review Added; Comments Flag Yes
[2016-08-01] MEDS ORDERED: QUEtiapine TAB* 100 MG PO PRN (15:05)
[2016-08-01] MEDS: CloZAPine TAB* 25 MG TAB PO SCH (20:37)
[2016-08-01] MEDS: Benzocaine/Menthol LOZ* 1 LOZENGE PO PRN (21:39)
--- NOTE | 2016-08-02 12:52 | PN ---
Subjective - Subjective Service Type: 65856 Hosp care 35 min high complexity Subjective: Meeting held today with mother Layla on the phone, grandfather Sonia Guzman of [facility], Cheryl of Social Work, and the undersigned. Topics covered were discharge tomorrow and readiness for discharge, med compliance, details of living at [facility], f/u care expectation with [facility]. All agreed that Guzman appeared ready for discharge, but with some caution around the reliability of Guzman's commitment to care and acceptance of need for care for mental illness. Guzman ultimately stated clearly that he felt he needed continued psychiatric care for mental illness, and stated he would comply with or adhere to treatment plans from [facility]. We also talked about his aversion to signing documents and phlebotomy. Objective - Appearance Appearance: Healthy Appearing Dysmorphic Features: No Hygiene: Normal Grooming: Well Kept - Behavior Psychomotor Activities: Normal Exhibits Abnormal Movement: No - Attitude and Relatedness Attitude and Relatedness: Cooperative Eye Contact: Good - Speech Quality: Unpressured Latencies: Normal Quantity: Appropriate - Mood Patient's Decription of Mood: "a little depressed" - attributed to extended hospitalization - Affect Observed Affect: Fair Affect Consistent with: Euthymia - Thought Process Patient's Thought Process: Coherent, Goal Directed - but with some illogical thougts expressed, not to psychotic degree, eg aversion to signing documents Thought Content: Yes Paranoid Ideation - mild and not impeding functionality, No Passive Wish, No Suicidal Planning, No Homicidal Ideation - Sensorium Experiencing Hallucinations: No, Sensorium is Clear Type of Hallucinations: Visual: No, Auditory: No, Command: No - Level of Consciousness Level of Consciousness: Alert Orientation: Yes Intact, Yes Orientated to Time, Yes Orientated to Place, Yes Orientated to Person - Impulse Control Impulse Control: Intact - Insight and Judgement Insight and Judgement: Poor - Group Participation Particating in Group Activities: No Group Participation Comments: Only staff pass - Medication Management Medication Management Adherence: Yes Assessment - Assessment Merits Inpatient Hospitalization: Consolidate Improvements, For Discharge Planning Inpatient DSM-IV Dx: Schizophrenia; polysubstance abuse in remission; rule out PTSD. Clinical Impression: Mr. Leonardo is a 26-year-old, single man who is actively paranoid and delusional with an exacerbation of schizophrenia likely due to medication noncompliance. He has a history of four prior psychiatric hospitalizations and has moved to the area in part because of reported conflict in his relationship with his mother who lives in the [facility]. Today Edgard stated that he has thought of suicide, but not recently, but has never arranged any means for carrying out an attempt, and has been deterred by the thought of how it would affect his family. 1.20.17 Today Edgard requests a change of meds as he says he has responded well in the past to Zyprexa, contradicting report from Dr Guerrier. He complained of intolerable anxiety after taking Invega at bedtime yesterday. He prefers not to take Clozaril. We will be continuing to gather collateral as he permits, with likely most useful contact being with his physician mother. 1.23.17 Remains disorganized at a psychotic level with no insight. Continue to treat. 1.24.17 Starting to show some signs of increased alliance and insight, asking for medication changes to address psychotic illness. 1.25.17 Continues to demonstrate increased alliance and insight, albeit in an ingratiating tone. Will consider with treatment team requests to wear yamaka and to go out on staff pass. Will add prn Ambien, but with understanding that this is not intended to replace Zyprexa, which already aids sleep per his report. May be near to planning for d/c to f/u with [facility]. 1.27.17 Guzman has improved relating style and decreased signs of psychotic exacerbation today. He has moved from being wary of all suggestions regarding med changes and other aspects of care, to a more collaborative stance today, and has agreed to a cross-taper from Zyprexa to Clozaril, in recognition of report from his mother and his past psychiatrist that he has functioned best on low dose Clozaril 50 mg at bedtime, so this is my target for cross-tapering off Zyprexa onto Clozaril. He is pleasant and collaborative with care, med, meal and group compliant. 2.6.17 Resuming care today after a week away from the unit. Had refused Clozaril, so switched to Seroquel, now at 500 mg nightly. Still psychotic and moderately disorganized, though pleasant and collaborative. Agreeable to further dose increase of Seroquel, but if this is ineffective, will revisit Clozaril, given history of having done well on low dose. 2.8.17 Has again agreed to Clozaril, so we are titrating up Clozaril, down Seroquel, with plan to leave on Seroquel prn agitation/insomnia per patient request. Will hold off on computer privileges until better organized. Domiciling main issue in preparation for discharge, as he cannot return to mother's or aunt's home unless negotiations yield agreement from him and them. Ultimate housing goal is assisted living at [facility]. Is med compliant, not attending organized groups. 2.10.17 Today Guzman continues to report hyperreligious and diffusely paranoid delusional thoughts, including concerns about violation of tenets of his Mormonism mina leading to odd requests for over the top interventions. He is calm and collaborative. He denies any side effects of medications. He agrees to possible discharge to mother's home. 2.13.17 Guzman complained today of fatigue at 75 mg Clozaril. He is asking to be discharged soon. He has made significant gains against delusions and cognitive- behavioral disorganization. Family meeting is being planned for this week to help organize supports after discharge. 2.15.17 Showing some signs of improved organization of thought and behavior. Complained of fatigue. Agreeable to only slight decrease of Clozaril dose to correct side effect of fatigue. 2.17.17 Today Guzman continues to report giving credence to paranoid delusion that children have been exsanguinated in his aunt's home. He agrees reluctantly to increased dose of Clozaril against psychosis, but commitment is low, as he says he is at peace with being psychotic. At family meeting, discharge options of [facility] in [place], versus [facility] here, were discussed. Family reported today that in past hospitalizations against acute psychotic exacerbations, Clozaril doses had been increased to the point that he had been heavily sedated, and 50 mg dose had been achieved in the outpatient setting with reduction of inpatient dose once fully stabilized on higher dose. 2.22.17 Guzman reports stable remission of psychosis. He would like to have a meeting with his aunt to negtiate discharge there, He is hoping for a Sunday discharge. 2..17 Guzman reports some side effects of lightheadedness and drooling, along with established complaint of fatigue, with Clozaril at doses stepping toward 200 mg daily. He requests tid fingersticks and additional med at night to aid sleep onset and continuation. He is agreeable to plan toward discharge . Will have family meeting on Sunday to coordinate support. 3.06.20 Guzman has recovered significantly but not fully. He is cooperative with care, but still makes statements indicating he questions the need for continued care, ultimately always agreeing to care and to work with psychiatrists outpatient toward his foreign policy officer goal of being med free. Family has agreed that he seems well enough to safely discharge. He has made no statements of dangerous intent or plan through the course of this hospitalization. Primary safety concern revolves around foreign policy officer stability if he decides not to follow up with care plan after discharge. He says he will follow up with care plan after discharge. Plan - Plan Treatment Plan: Name: EDGARD LEONARDO Birthdate: 1990 [id number] Continue Seroquel PRN agitation/psychosis/insomnia, will not add another sedating medication. Continue Clozaril at 150 mg nightly per patient preference to facilitate longer term compliance. Monitor MS and safety. Encourage groups and milieu. D/C to care with [facility] while living at [facility], planned for tomorrow. Medications: Current Medications Al Hydrox/Mg Hydrox/Simethicone (Maalox Plus*) 30 ml PO Q4H PRN PRN Reason: INDIGESTION Last Admin: 07/13/16 10:07 Dose: 30 ml Clozapine (Clozapine Tab*) 100 mg PO BEDTIME [facility] PRN Reason: Taper Stop: 08/15/16 20:59 Last Admin: 08/01/16 20:37 Dose: 100 mg Ibuprofen (Motrin Tab*) 400 mg PO Q6H PRN PRN Reason: PAIN Last Admin: 07/27/16 20:32 Dose: 400 mg Magnesium Hydroxide (Milk Of Magnesia Liq*) 30 ml PO Q6H PRN PRN Reason: CONSTIPATION Multi-Ingredient Mouthwash/Gargle (Biotene Dry Mouth Oral Rinse(Nf)) 15 ml MT . DIRECTED [facility] Last Admin: 07/28/16 09:18 Dose: 15 ml Nicotine (Nicotine Inhaler*) 10 mg INH Q2H PRN PRN Reason: CRAVING Last Admin: 07/06/16 06:10 Dose: 10 mg Nicotine Polacrilex (Nicotine Gum*) 2 mg PO Q2H PRN PRN Reason: CRAVINGS Last Admin: 07/24/16 12:21 Dose: 2 mg Quetiapine Fumarate (Seroquel Tab*) 100 mg PO BEDTIME PRN PRN Reason: AGITATION/ANXIETY Last Admin: 08/01/16 20:37 Dose: 100 mg Throat Lozenges (Chloraseptic Ricci*) 1 ricci PO Q4H PRN PRN Reason: SORE THROAT/COUGH Last Admin: 08/01/16 21:39 Dose: 1 ricci - Discharge Plan Discharge Plan: Outpatient Follow Up Outpatient Program: [facility]
[2016-08-02] MEDS ORDERED: CloZAPine TAB* 100 MG TAB PO SCH (21:00)
[2016-08-02] MEDS ORDERED: CloZAPine TAB* 25 MG TAB PO SCH (21:00)
[2016-08-03 07:59] VITALS: BP 124/78
--- NOTE | 2016-08-03 10:45 | DS ---
Subjective - Subjective Service Types: 93320 Hosp SC Day Mgmt simple under 30 min Discharge Date: 08/03/16 Subjective: Edgard reports today feeling safe and ready for discharge. He has voiced commitment to aftercare plans put in place for his discharge today. He reports he will sign documents after reviewing them as required for his housing and care with [facility]. He was bright and future-oriented in his response to observations about his discharge planned for today during a meeting with his Grandfather Thomas, [facility] medical director/head team physician Sonia, phone conferencing in his mother Layla, Ms Mcmanus, and the undersigned. All agreed at that meeting that he was safe and ready for discharge. His grandfather reported that he was much improved from admission, but not as good as before he came here from [place]. In the meeting, concern with an was raised in an elliptical way as a stressor contributing to his decompensation. Guzman continued to report his thought that he does not have a mental illness beyond insomnia, and 2 days prior to discharge he asked me about taking a medication against insomnia toward the goal of ultimately being only on a sleep aid. He has also stated that he feels that Clozaril might be used like an epi pen, ie only in case of emergency of onset of psychosis. I have explained to him that he may need to take medications consistently for the rest of his life to keep his schizophrenia under control. He has agreed that he will not stop taking the Clozaril on his own, but he hopes he can transition to a medication that is less sedating. He will continue to take Seroquel 100 mg po at bedtime prn agitation/insomnia. He has expressed interest in transitioning to only Seroquel instead of Clozaril. He has agreed that he will discuss this possibility with his prescriber at [facility], which Sonia said will be Dr Smith. Objective - Appearance Appearance: Healthy Appearing Dysmorphic Features: No Hygiene: Normal Grooming: Well Kept - Behavior Psychomotor Activities: Normal Exhibits Abnormal Movement: No - Attitude and Relatedness Attitude and Relatedness: Cooperative Eye Contact: Good - Speech Quality: Unpressured Latencies: Normal Quantity: Appropriate - Mood Patient's Decription of Mood: "Alright" - Affect Observed Affect: Fair Affect Consistent with: Euthymia - Thought Process Patient's Thought Process: Coherent, Goal Directed - but still with insistence on responding to question of whether he has voices or visions in a way that does not acknowledge our prior discussions of my meaning of hallucinations until I clarify that, then states no Thought Content: No Passive Wish, No Suicidal Planning, No Homicidal Ideation, No Paranoid Ideation - Sensorium Experiencing Hallucinations: No, Sensorium is Clear Type of Hallucinations: Visual: No, Auditory: No, Command: No - Level of Consciousness Level of Consciousness: Agitated Orientation: Yes Intact, Yes Orientated to Time, Yes Orientated to Place, Yes Orientated to Person - Impulse Control Impulse Control: Intact - Insight and Judgement Insight and Judgement: Fair - Group Participation Particating in Group Activities: Yes - Medication Management Medication Management Adherence: Yes Treatment Course & Assessment Clinical Course & Impression: Mr. Aponte is a 26-year-old, single man who on admission was actively paranoid and delusional with an exacerbation of schizophrenia likely due to medication noncompliance. He has a history of four prior psychiatric hospitalizations and moved to the area in part because of reported conflict in his relationship with his mother who lives in the [facility]. ON the day of admission, Edgard stated that he has thought of suicide, but not recently, but has never arranged any means for carrying out an attempt, and has been deterred by the thought of how it would affect his family. 1.20.17 Today Edgard requests a change of meds as he says he has responded well in the past to Zyprexa, contradicting report from Dr Guerrier. He complained of intolerable anxiety after taking Invega at bedtime yesterday. He prefers not to take Clozaril. We will be continuing to gather collateral as he permits, with likely most useful contact being with his physician mother. 1.23.17 Remains disorganized at a psychotic level with no insight. Continue to treat. 1.24.17 Starting to show some signs of increased alliance and insight, asking for medication changes to address psychotic illness. 1.25.17 Continues to demonstrate increased alliance and insight, albeit in an ingratiating tone. Will consider with treatment team requests to wear yamaka and to go out on staff pass. Will add prn Ambien, but with understanding that this is not intended to replace Zyprexa, which already aids sleep per his report. May be near to planning for d/c to f/u with [facility]. 1.27.17 Guzman has improved relating style and decreased signs of psychotic exacerbation today. He has moved from being wary of all suggestions regarding med changes and other aspects of care, to a more collaborative stance today, and has agreed to a cross-taper from Zyprexa to Clozaril, in recognition of report from his mother and his past psychiatrist that he has functioned best on low dose Clozaril 50 mg at bedtime, so this is my target for cross-tapering off Zyprexa onto Clozaril. He is pleasant and collaborative with care, med, meal and group compliant. 2.6.17 Resuming care today after a week away from the unit. Had refused Clozaril, so switched to Seroquel, now at 500 mg nightly. Still psychotic and moderately disorganized, though pleasant and collaborative. Agreeable to further dose increase of Seroquel, but if this is ineffective, will revisit Clozaril, given history of having done well on low dose. 2.8.17 Has again agreed to Clozaril, so we are titrating up Clozaril, down Seroquel, with plan to leave on Seroquel prn agitation/insomnia per patient request. Will hold off on computer privileges until better organized. Domiciling main issue in preparation for discharge, as he cannot return to mother's or aunt's home unless negotiations yield agreement from him and them. Ultimate housing goal is assisted living at [facility]. Is med compliant, not attending organized groups. 2.10.17 Today Guzman continues to report hyperreligious and diffusely paranoid delusional thoughts, including concerns about violation of tenets of his Christianity mina leading to odd requests for over the top interventions, such as being handcuffed to make it impossible to use electricity after dark. He is calm and collaborative. He denies any side effects of medications. He agrees to possible discharge to mother's home. 2.13.17 Guzman complained today of fatigue at 75 mg Clozaril. He is asking to be discharged soon. He has made significant gains against delusions and cognitive- behavioral disorganization. Family meeting is being planned for this week to help organize supports after discharge. 2.15.17 Showing some signs of improved organization of thought and behavior. Complained of fatigue. Agreeable to only slight decrease of Clozaril dose to correct side effect of fatigue. 2.17.17 Today Guzman continues to report giving credence to paranoid delusion that children have been exsanguinated in his aunt's home. He agrees reluctantly to increased dose of Clozaril against psychosis, but commitment is low, as he says he is 'at peace with being psychotic.' At family meeting, discharge options of [facility] in [place], versus [facility] here, were discussed. Family reported today that in past hospitalizations against acute psychotic exacerbations, Clozaril doses had been increased to the point that he had been heavily sedated, and 50 mg dose had been achieved in the outpatient setting with reduction of inpatient dose once fully stabilized on higher dose. 2.17 Guzman reports stable remission of psychosis. He would like to have a meeting with his aunt to negotiate discharge to her home. He is hoping for a Sunday discharge. 07.31.17 Guzman reports some side effects of lightheadedness and drooling, along with previous complaint of fatigue, with Clozaril at doses stepping toward 200 mg daily. He requests tid fingersticks and additional med at night to aid sleep onset and continuation. He is agreeable to plan toward discharge . Will have family meeting on Sunday to coordinate support. 3.1.17 Guzman has recovered significantly but not fully. He is cooperative with care, but still makes statements indicating he questions the need for continued care, ultimately always agreeing to care and to work with psychiatrists outpatient toward his custodial goal of being med free. Family has agreed that he seems well enough to safely discharge. He has made no statements of dangerous intent or plan through the course of this hospitalization. Primary safety concern revolves around custodial stability if he decides not to follow up with care plan after discharge. He says he will follow up with care plan after discharge. 3.2.17 Guzman is cleared for discharge today. He is assessed as at no acutely increased risk of harm to self or others. He voices commitment to aftercare. He remains somewhat odd in the logical structure of his speech at times. Other signs of psychosis have stably remitted. He reports that he understands that his concerns about children being exsanguinated at his Aunt's home was a delusion, for example. He still expresses reluctance to have blood drawn, giving an odd example to try to illustrate his objection of his suspicion that I would not like it if I were asked to give a sample of semen. He clearly states that he has no dangerous intent or plan to harm himself or others. His mother and grandfather agree with discharge today, stating they do not believe he is at any imminent risks of harm. He has throughout the hospitalization expressed reluctance to increase antipsychotic dosages, and has at intervals refused medication when he has felt he was too sedated, but for the last 2 weeks he has agreed to dose increases toward a compromise target dose of Clozaril that he says he will commit to taking following discharge, that is 150 mg daily. He agrees that he will work with Dr Smith to adjust this dose up if he is assessed as having continued psychotic symptoms requiring increased dose, and to adjust it down over time if he is assessed as stable and at sufficiently low risk of relapse. Family had through the first 4 weeks of hospitalization reported that he had been stable on low dose of Clozaril, and only in week 4 reported he had taken higher Clozaril doses when in hospital. He remains on 2 antipsychotic medications at his request, taking prn Seroquel 100 mg at bedtime in case of agitation/ insomnia. I have discussed with him my concern that if he is feeling oversedated on the Clozaril alone, this strategy may worsen that. He has insisted that , to the contrary, he has felt that he benefits from additional medication at time without increased sedation. Guzman is likely to remain a challenging patient with whom to balance effective dosing of medications against resistance to taking medications, primarily due to complaint of feeling oversedated and ' inside' when taking antipsychotices. He has given no indication through the course of this hospitalization of any risk of intentional harm to self or others. Primary risk to be monitored after discharge appears to be relapse to psychosis resulting in inadequate self-care and potentially erratic behavior. We did not through the course of this hospitalization address 2 souza concerns, due to Guzman's refusal to talk about these things here. One, he lost his father to an [place] while they were vacationing about a few years ago. Guzman performed CPR on his father and received no assistance from staff at the [place] where [place] had [place] when his father had the [place]. This was a traumatic experience that might be addressed in a intermediate project manager psychotherapy. Two , he has referred to an that occurred, and has named this as a primary stressor contributing to this latest decompensation. Again, he has not been willing to discuss this with me or others on staff here, but with longer term care he may benefit from addressing this in psychotherapy once he has established a sense of safety. Guzman has also expressed reservations about being in care with women, referring to nurturing women smothering or something to that effect in vague and difficult to clarify remarks. As with many of his observations, it is difficult to get him to clarify his thinking about this. Overall, however, Guzman is a thoughtful and conscientious young man. He may do well if he can accept his illness fully and accept more fully help to improve his mental status and functioning. Merits Inpatient Hospitalization: No Clear for Discharge: Adequate Clinical Respons, Acceptable Safety Profile, Low Utility of Inpt Care Inpatient DSM-IV Dx: Schizophrenia; polysubstance abuse in remission; rule out PTSD. - Maynard III Medical Illness: None - Maynard IV Stressors: refers to but refuses to expound; loss of father; resistance to accepting need for assistance Family: Supportive extended family, including grandparents and aunt here; some conflict with mother in [facility] Primary Support Group: grandparents, aunt to a leser degree - Maynard V [id number]: 60 Estimate of Highest-Past Year: 65 Discharge Planning - Discharge Planning Discharge Plan: Outpatient Follow Up Outpatient Program: [facility] Recommendations for Continuing Care: Medication Management, Psychotherapy, Routine Metabolic Monitoring - : lipids, glucose, weight while on atypical antipsychotics, Primary Care Followup Medications: Clozaril 150 mg po daily. Seroquel 100 mg po qHS prn agitation/insomnia. Discharge Planning: Prescriptions provided for discharge [x] Yes [] No Follow up care details as per social work arrangements. Patient response to discharge plan: [x] eager for discharge [x] agreeable with discharge plan [] ambivalent about discharge [] disagrees with discharge today
== END 2016-08-03 10:00 | disposition home or self-care (01) | DRG 750 ==
LOC: ED 09:04 → BSU 06-21 11:20
PROVIDERS: ADMIT Psychiatry & Neurology Psychiatry; ATTEND Psychiatry & Neurology Psychiatry
PROC: GZHZZZZ Group Psychotherapy (ICD-10-PCS; principal; 2016-06-23)
PROC: GZ58ZZZ Individual Psychotherapy, Cognitive-Behavioral (ICD-10-PCS; 2016-06-23)
DX: F20.9 Schizophrenia, unspecified (principal); F22 Delusional disorders; Z91.14 Patient's other noncompliance with medication regimen; F41.9 Anxiety disorder, unspecified; F19.10 Other psychoactive substance abuse, uncomplicated; F43.10 Post-traumatic stress disorder, unspecified; Z62.820 Parent-biological child conflict; Z81.8 Family history of other mental and behavioral disorders; Z53.29 Procedure and treatment not carried out because of patient's decision for other reasons
CPT/HCPCS: 36415; 80053; 80061; 80307; 80320; 80329; 81003; 83036; 84443; 85025; 86592; 90686; 90853; 99222; 99231; 99232; 99233; 99238; 99285; A9270-GY; G0480; J1200; J1630; J2060

== ENCOUNTER 2017-01-08 14:06 | Inpatient (IN) | payer BC ==
[2017-01-08 15:20] LABS: Hematocrit 47 % (42-52); Mean Corpuscular HGB Conc 34 g/dl (31-36); Mean Corpuscular Hemoglobin 30 pg (27-31); Mean Corpuscular Volume 89 fL (80-94); Mean Platelet Volume 9 um3 (7.4-10.4); Red Blood Count 5.33 10^6/ul (4.0-5.4); Red Cell Distribution Width 13 % (10.5-15); White Blood Count 5.1 10^3/ul (3.5-10.8)
[2017-01-08 15:34] LABS: ALT 10 U/L (7-52); AST 19 U/L (13-39); Albumin 4.8 g/dL (3.2-5.2); Alkaline Phosphatase 41 U/L (34-104); Anion Gap 6 mmol/L (2-11); BUN/Creatinine Ratio 13.6 (8-20); Blood Urea Nitrogen 12 mg/dL (6-24); CO2 Carbon Dioxide 29 mmol/L (22-32); Calcium 9.5 mg/dL (8.6-10.3); Chloride 105 mmol/L (101-111); EGFR African American 134.6 (>60); EGFR Non-African American 104.7 (>60); Globulin 2.7 g/dL (2-4); Glucose 100 mg/dL (70-100); Potassium 3.8 mmol/L (3.5-5.0); Sodium 140 mmol/L (133-145); Total Protein 7.5 g/dL (6.4-8.9)
[2017-01-08 16:04] LABS: Acetaminophen < 15 mcg/mL; Alcohol < 10 mg/dL (<10); Salicylate < 2.50 mg/dL (<30)
[2017-01-08 16:06] LABS: TSH (Thyroid Stimulating Horm) 0.89 mcIU/mL (0.34-5.60)
[2017-01-08 20:05] LABS: Urine Bilirubin Negative (Negative); Urine Glucose Negative (Negative); Urine Nitrite Negative (Negative)
[2017-01-08 20:23] LABS: Benzodiazepine Urine Screen None Detected (None Detect)
[2017-01-08] MEDS ORDERED: Al Hydrox/Mg Hydrox/Simet LIQ* 30 ML UDC PO PRN (21:46)
[2017-01-08] MEDS ORDERED: Acetaminophen TAB* 325 MG PO PRN (21:46)
[2017-01-08] MEDS ORDERED: QUEtiapine TAB* 100 MG PO PRN (21:47)
--- NOTE | 2017-01-08 23:57 | ED ---
Ata Fontenot Soohyun, scribed for Yariel Gray MD on 01/08/17 at 2116 . Progress - Progress Note Progress Note: Signed out from Dr. Orellana at shift change. Pt is admitted for further psychiatric workup. Dx: acute psychosis, involuntary admission. Paperwork for involuntary admission has been signed. pt's condition is stable. - Consult/PCP Time Called: 16:00 Course/Dx - Diagnoses Provider Diagnoses: Acute psychosis, involuntary admission - Provider Notifications Instructed by Provider To: Admit As Inpatient - MHU The documentation as recorded by the daveibAta au Soohyun accurately reflects the service I personally performed and the decisions made by , Yariel Gray MD.
--- NOTE | 2017-01-09 07:57 | ED ---
Zoie Fontenot Rebecca, scribed for Flavio Orellana MD on 01/08/17 at 1423 . Psychiatric Complaint - HPI Summary HPI Summary: Pt is a 26 y/o M BIBA accompanied by police who presents to ED as a 945 c/o anxiety. Per EMS, a health attending from [facility] had made a house visit and deemed that the pt was unsafe. Pt refuses to verbalize with EMS and ED staff, only communicating by shaking and nodding his head. Pt denies depression and SIs. Confirms he is eating and drinking well and capable of talking. Negative prior suicide attempts. PMHx schizophrenia. - History Of Current Complaint Chief Complaint: EDMentalHealth Time Seen by Provider: 01/08/17 14:20 Hx Obtained From: Patient, EMS Onset/Duration: Still Present Character: Anxious Associated Signs And Symptoms: Positive: Negative Related History: Positive For: Prior Psychiatric Issues - Schizophrenia Has Suicidal: Denies: Thoughts - Allergies/Home Medications Allergies/Adverse Reactions: Allergies Allergy/AdvReac Type Severity Reaction Status Date / Time No Known Allergies Allergy Verified 01/08/17 22:14 Home Medications: Home Medications CloZAPine TAB* 100 mg PO BEDTIME 01/08/17 [History Confirmed 01/08/17] Propranolol TAB* [Inderal TAB*] 20 mg PO DAILY PRN 01/08/17 [History Confirmed 01/08/17] QUEtiapine TAB* [SEROquel TAB*] 100 mg PO BEDTIME 01/08/17 [History Confirmed ] QUEtiapine TAB* [Seroquel TAB*] 100 mg PO BEDTIME PRN 01/08/17 [History Confirmed 01/08/17] PMH/Surg Hx/FS Hx/Imm Hx Respiratory History: Reports: Hx Asthma, Hx Chronic Bronchitis GI History: Reports: Hx Ulcer - Pt states he has frequent bloody stools, last time was 2 weeks ago Musculoskeletal History: Reports: Other Musculoskeletal History - 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 Neurological History: Reports: Hx Seizures - Pt states he has epilepsy, but does not recal when his last seizure occured Psychiatric History: Reports: Hx Schizophrenia Denies: Hx Eating Disorder, Hx of Violent Episodes Against Others - Surgical History Surgery Procedure, Year, and Place: Pt states he had an operation for a hernia at age 2 - Family History Family History: FHx of schizophrenia - Social History Alcohol Use: None Alcohol Amount: unknown Hx Substance Use: No Substance Use Type: Reports: None Substance Use Comment - Amount & Last Used: unknown Smoking Status (MU): Former Smoker Have You Smoked in the Last Year: No Review of Systems Negative: Fever Positive: Other - Anxious; Denies SIs. Negative: Depressed All Other Systems Reviewed And Are Negative: No Physical Exam - Summary Physical Exam Summary: VITAL SIGNS: Reviewed. GENERAL: ~Patient is a well-developed and nourished male who is lying comfortable in the stretcher. ~Patient is not in any acute respiratory distress. HEAD AND FACE: No signs of trauma. ~No ecchymosis, hematomas or skull depressions. No sinus tenderness. EYES: PERRLA, EOMI x 2, No injected conjunctiva, no nystagmus. EARS: Hearing grossly intact. Ear canals and tympanic membranes are within normal limits. MOUTH: Oropharynx within normal limits. NECK: Supple, trachea is midline, no adenopathy, no JVD, no carotid bruit, no c- spine tenderness, neck with full ROM. CHEST: Symmetric, no tenderness at palpation LUNGS: Clear to auscultation bilaterally. No wheezing or crackles. CVS: Regular rate and rhythm, S1 and S2 present, no murmurs or gallops appreciated. ABDOMEN: Soft, non-tender. No signs of distention. No rebound no guarding, and no masses palpated. Bowel sounds are normal. EXTREMITIES: FROM in all major joints, no edema, no cyanosis or clubbing. NEURO: Alert and oriented x 3. No acute neurological deficits. Speech is normal and follows commands. SKIN: Dry and warm PSYCH: He does not want to answer questions, just nods his head. Seems to be depressed. Triage Information Reviewed: Yes Vital Signs On Initial Exam: Initial Vitals Temp Pulse Resp BP Pulse Ox 99.6 F 99 18 130/84 98 01/08/17 14:31 01/08/17 14:31 01/08/17 14:31 01/08/17 14:31 01/08/17 14:31 Vital Signs Reviewed: Yes Diagnostics - Vital Signs Vital Signs Temp Pulse Resp BP Pulse Ox 01/08/17 20:33 97 F 78 18 144/78 100 01/08/17 14:31 99.6 F 99 18 130/84 98 - Laboratory Lab Results: Lab Results 01/08/17 01/08/17 01/08/17 Range/Units 15:09 15:09 19:53 WBC 5.1 (3.5-10.8) 10^3/ul RBC 5.33 (4.0-5.4) 10^6/ul Hgb 16.0 (14.0-18.0) g/dl Hct 47 (42-52) % MCV 89 (80-94) fL MCH 30 (27-31) pg MCHC 34 (31-36) g/dl RDW 13 (10.5-15) % Plt Count 177 (150-450) 10^3/ul MPV 9 (7.4-10.4) um3 Neut % (Auto) 58.2 (38-83) % Lymph % (Auto) 30.1 (25-47) % Whitfield % (Auto) 9.0 (1-9) % Eos % (Auto) 2.1 (0-6) % Baso % (Auto) 0.6 (0-2) % Absolute Neuts (auto) 3.0 (1.5-7.7) 10^3/ul Absolute Lymphs (auto) 1.5 (1.0-4.8) 10^3/ul Absolute Monos (auto) 0.5 (0-0.8) 10^3/ul Absolute Eos (auto) 0.1 (0-0.6) 10^3/ul Absolute Basos (auto) 0 (0-0.2) 10^3/ul Absolute Nucleated RBC 0.01 10^3/ul Nucleated RBC % 0.1 Sodium 140 (133-145) mmol/L Potassium 3.8 (3.5-5.0) mmol/L Chloride 105 (101-111) mmol/L Carbon Dioxide 29 (22-32) mmol/L Anion Gap 6 (2-11) mmol/L BUN 12 (6-24) mg/dL Creatinine 0.88 (0.67-1.17) mg/dL Est GFR ( Amer) 134.6 (>60) Est GFR (Non-Af Amer) 104.7 (>60) BUN/Creatinine Ratio 13.6 (8-20) Glucose 100 (70-100) mg/dL Calcium 9.5 (8.6-10.3) mg/dL Total Bilirubin 0.50 (0.2-1.0) mg/dL AST 19 (13-39) U/L ALT 10 (7-52) U/L Alkaline Phosphatase 41 (34-104) U/L Total Protein 7.5 (6.4-8.9) g/dL Albumin 4.8 (3.2-5.2) g/dL Globulin 2.7 (2-4) g/dL Albumin/Globulin Ratio 1.8 (1-3) TSH 0.89 (0.34-5.60) mcIU/mL Urine Color Yellow Urine Appearance Clear Urine pH 7.0 (5-9) Ur Specific [place] 1.025 (1.010-1.030) Urine Protein Negative (Negative) Urine Ketones Negative (Negative) Urine Blood Negative (Negative) Urine Nitrate Negative (Negative) Urine Bilirubin Negative (Negative) Urine Urobilinogen Negative (Negative) Ur Leukocyte Esterase Negative (Negative) Urine Glucose Negative (Negative) Salicylates < 2.50 (<30) mg/dL Urine Opiates Screen (None Detect) Acetaminophen < 15 mcg/mL Ur Barbiturates Screen (None Detect) Ur Phencyclidine Scrn (None Detect) Ur Amphetamines Screen (None Detect) U Benzodiazepines Scrn (None Detect) Urine Cocaine Screen (None Detect) U Cannabinoids Screen (None Detect) Serum Alcohol < 10 (<10) mg/dL 01/08/17 Range/Units 19:53 WBC (3.5-10.8) 10^3/ul RBC (4.0-5.4) 10^6/ul Hgb (14.0-18.0) g/dl Hct (42-52) % MCV (80-94) fL MCH (27-31) pg MCHC (31-36) g/dl RDW (10.5-15) % Plt Count (150-450) 10^3/ul MPV (7.4-10.4) um3 Neut % (Auto) (38-83) % Lymph % (Auto) (25-47) % Whitfield % (Auto) (1-9) % Eos % (Auto) (0-6) % Baso % (Auto) (0-2) % Absolute Neuts (auto) (1.5-7.7) 10^3/ul Absolute Lymphs (auto) (1.0-4.8) 10^3/ul Absolute Monos (auto) (0-0.8) 10^3/ul Absolute Eos (auto) (0-0.6) 10^3/ul Absolute Basos (auto) (0-0.2) 10^3/ul Absolute Nucleated RBC 10^3/ul Nucleated RBC % Sodium (133-145) mmol/L Potassium (3.5-5.0) mmol/L Chloride (101-111) mmol/L Carbon Dioxide (22-32) mmol/L Anion Gap (2-11) mmol/L BUN (6-24) mg/dL Creatinine (0.67-1.17) mg/dL Est GFR ( Amer) (>60) Est GFR (Non-Af Amer) (>60) BUN/Creatinine Ratio (8-20) Glucose (70-100) mg/dL Calcium (8.6-10.3) mg/dL Total Bilirubin (0.2-1.0) mg/dL AST (13-39) U/L ALT (7-52) U/L Alkaline Phosphatase (34-104) U/L Total Protein (6.4-8.9) g/dL Albumin (3.2-5.2) g/dL Globulin (2-4) g/dL Albumin/Globulin Ratio (1-3) TSH (0.34-5.60) mcIU/mL Urine Color Urine Appearance Urine pH (5-9) Ur Specific [place] (1.010-1.030) Urine Protein (Negative) Urine Ketones (Negative) Urine Blood (Negative) Urine Nitrate (Negative) Urine Bilirubin (Negative) Urine Urobilinogen (Negative) Ur Leukocyte Esterase (Negative) Urine Glucose (Negative) Salicylates (<30) mg/dL Urine Opiates Screen None detected (None Detect) Acetaminophen mcg/mL Ur Barbiturates Screen None detected (None Detect) Ur Phencyclidine Scrn None detected (None Detect) Ur Amphetamines Screen None detected (None Detect) U Benzodiazepines Scrn None detected (None Detect) Urine Cocaine Screen None detected (None Detect) U Cannabinoids Screen None detected (None Detect) Serum Alcohol (<10) mg/dL Result Diagrams: 01/08/17 15:09 01/08/17 15:09 Lab Statement: Any lab studies that have been ordered have been reviewed, and results considered in the medical decision making process. Course/Dx - Course Assessment/Plan: Pt is a 26 y/o M BIBA accompanied by police who presents to ED as a 945 c/o anxiety. Per EMS, a health attending from [facility] had made a house visit and deemed that the pt was unsafe. Pt refuses to verbalize with EMS and ED staff, only communicating by shaking and nodding his head. Pt denies depression and SIs. Confirms he is eating and drinking well and capable of talking. Negative prior suicide attempts. PMhx schizophrenia. Blood work w/in normal limits. Medically cleared. Awaiting MHE. Has been hemodynamically stable, lying and sleeping comfortable in the stretcher. The pt will be signed out to Dr. Gray, pending dispo, awaiting MHE. - Differential Dx/Clinical Impression Differential Diagnosis/HQI/PQRI: Positive: Anxiety, Depression, Homicidal Ideation, Suicidal Gesture Provider Diagnosis: Acute psychosis, involuntary admission Discharge - Discharge Plan Condition: Stable Disposition: OTHER Discharge Disposition Comment: Pt will be kassy dout to Dr. Gray, pending dispo , awaiting MHE. The documentation as recorded by the Zoie barrientos Rebecca accurately reflects the service I personally performed and the decisions made by me, Flavio Orellana MD.
[2017-01-09] MEDS: Vitamin THERAPEUTIC TAB PO SCH ×2 (09:28→09:39)
[2017-01-09] MEDS ORDERED: clonazePAM TAB(*) 0.5 MG PO PRN (12:30)
[2017-01-09] MEDS: buPROPion TAB* 100 MG PO SCH (13:44)
--- NOTE | 2017-01-09 20:45 | HP ---
HISTORY AND PHYSICAL: DATE OF ADMISSION: 01/08/17 SUPERVISING PSYCHIATRIST: Dr. Jere Hassan * (DICTATED BY DENNYS LERMA NP) JUSTIFICATION FOR ADMISSION: The patient was sent to the emergency room due to increased depressed mood and bizarre statements about losing the will to live and a higher power that has given him all the answers. He resides at [facility] and has not been compliant with medications. He has been presenting as nearly catatonic. CHIEF COMPLAINT: The patient simply nods or shrugs. HISTORY OF PRESENT ILLNESS: Edgard is a 26-year-old white male who resides at [facility]. He was last admitted to [facility] in June of this year. He has a long history of psychiatric hospitalizations primarily in [place]. This is his second hospitalization at [facility]. Most of the information obtained is through collateral and previous records as client is minimally participating in interview. According to the previous H and P, Edgard has a history of schizophrenia with prior treatment of risperidone and Invega. According to an e-mail from his mother, he is most receptive to Clozaril. His current medication regimen from [facility] includes clozapine 100 mg at bedtime, quetiapine 100 mg at bedtime as well as a p.r.n. dose of quetiapine 100 mg at bedtime p.r.n. insomnia. His medication list from his previous psychiatrist in [place] was sent to us from his mother and this included Adderall 10 mg twice a day, Wellbutrin XL 150 mg in the a.m., clozapine 500 mg at bedtime. He also had p.r.n. prescriptions for Seroquel 100 mg q.8 hours p.r.n. anxiety, agitation and Xanax 1 mg b.i.d. p.r.n. According to the e-mail from his mother, this was the regimen used when he was more stable. Since last admission to this unit, Edgard has been residing in [facility]. He was referred to ACT team but declined their services. According to collateral from [facility] staff, the patient has not been taking Clozaril and has not given the bottle that he obtained from the pharmacy to the [place] staff. He cites the Clozaril has side effects, but has not been specific about what these are. He has been appearing frightened, paranoid, sad, confused. He has been making phone calls to family members and making strange statements including that he lost the will to live and has a higher power that has given him all the answers. He has been asking his mother to rent a car for him. Upon interview today, Edgard is sitting in his room on the bed, arms crossed, covered in blankets. He is wearing a black baseball cap and hospital scrubs. He is minimally participating in the interview and primarily shrugs or nods answers to questions. Prior to interview with this scenario writer, he had expressed anxiety to nursing staff and requested p.r.n. medication for anxiety. During interview with this scenario writer, he denied anxiety and declined an anxiolytic. Edgard denies feeling unsafe. He endorses not wanting to take medications, specifically Clozaril. He endorses liking living at [facility]. Denies feeling unsafe there. He has not given consent for providers to talk to his mother. According to staff, he tends to be guarded when it comes to her being involved in his treatment planning. Edgard denies AH or VH. He denies SI or SIB. As far as thought processes and thought content, this is difficult to obtain at this time due to his minimal participation. Please see H and P from Dr. Baez on 06/21/16 in regards to the significance of the patient's delusions and behaviors. PAST PSYCHIATRIC HISTORY: As stated above. He has had previous hospitalizations at [facility] in [place]. Onset of his illness was at age 17 and has since been diagnosed with schizophrenia. This is his second hospitalization at [facility], last one was in June of this year. He was admitted on 06/22/16, he was floridly psychotic and paranoid. He was minimally cooperative with treatment and discharge planning, he was not clear for discharg until 08/03/16. As stated above, he was encouraged to follow up with ACT, but has declined their services since then. Past medication trials include Risperdal and Invega. Multiple collateral notes that Clozaril is the only antipsychotic that is effective. SUBSTANCE USE HISTORY: The patient has reported history of polysubstance abuse with rehab in 4 [place] states. In June, he had reported sobriety for over a year with the exception of some alcohol use on . 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 His toxicology on both admissions was negative for his urine drug screen. PAST MEDICAL HISTORY: Edgard denies active medical problems. He denies pain or discomfort. Denies surgical history. His height and weight to be determined. CURRENT MEDICATIONS UPON ADMISSION: 1. Clozapine 100 mg p.o. q.h.s. 2. Quetiapine 100 mg p.o. q.h.s. 3. Also, quetiapine 100 mg p.o. q.h.s. p.r.n. insomnia. ALLERGIES: No known drug allergies. FAMILY PSYCHIATRIC HISTORY: Unknown. SOCIAL HISTORY: The patient was raised in the [facility]. He moved to the [facility] in the end of 2015 as he had family here. He has a conflicting relationship with his mother, who lives in [place]. She is a physician and very involved in his treatment planning. Further social history to be determined as the patient is more cooperative. LEGAL HISTORY: He has stolen EGTin from [employer], but there has not been charges. No other known legal history. The patient denies any substance use or tobacco use. Again, laboratory from the ER does not designate any recent use. REVIEW OF SYSTEMS: Constitutional: Negative. Positive anxious. Denies SI. Negative HI/. All other systems reviewed and are negative. PHYSICAL EXAMINATION The patient refuses physical exam at this time. It is appropriate to refer to the physical exam done in the emergency room due to the patient's paranoia and delusional state. MENTAL STATUS EXAM: The patient is a tall, thin, white male, appears stated age. He is sitting on the bed with his arms crossed, covers up to his waist. He is wearing a black cap low over his eyes and hospital scrubs. His head is down. He shrugs and nods answers to questions. At times, he appears to nod when nothing has been asked by scenario writer. He is pleasant, but evasive. He is alert and oriented x3. His concentration is poor. Memory unable to assess. Mood is dysphoric. Affect is restricted. Speech is none. Eye contact is poor. He has limited insight and judgment in regards to participating in conversation with myself or kit planner. LABORATORY VALUES: CBC in the ER was within normal limits. This will be repeated in 1 week if the patient is still here and taking Clozaril. CMP was within normal limits and TSH normal at 0.89. Urinalysis within normal limits. Toxicology negative for salicylates, acetaminophen, or alcohol, and urine drug screen was negative. DIAGNOSIS: Schizophrenia, rule out posttraumatic stress disorder. ASSESSMENT: Edgard is a 26-year-old white male, single, lives in [facility]. He is actively paranoid and delusional with an exacerbation of schizophrenia. He has likely been medication noncompliant. He has a history of 5 prior psychiatric hospitalizations, most recent at [facility] in June of this year. He moved to this area from the [facility] last year due to a conflicting relationship with his mother. His father from a heart attack 4 years ago. The patient witnessed and attempted to revive him with CPR. The patient is minimally cooperative with interview. Therefore, more information will need to be gathered in regards to his current symptoms. There is available collateral from his mother and prior admission to this unit. He has not signed consent to discuss treatment planning with his mother or outpatient providers at this time. PLAN: Admit the patient to adult behavioral services unit under 9.39 status. He is full code status. He will be monitored q.15 minutes for safety. He will be encouraged to participate in supportive milieu, individual sessions with staff, and psychoeducational groups. He requests a vegan diet. He denies need for spiritual care or clinical writer at this time. We will initiate known outpatient medications including clozapine, bupropion, and quetiapine. We will consider propranolol for anxiety, instead of Klonopin. He was provided Xanax by a previous psychiatrist, but due to concern about polysubstance abuse, it would be beneficial to refrain from use of controlled substances. DISCHARGE PLANNING: Will include outpatient providers and family pending the patient's consent. DENNYS LERMA NP [id number]/[facility] #: [id number] SAGAR
[2017-01-09] MEDS: CloZAPine TAB* 100 MG TAB PO SCH (21:16)
[2017-01-09] MEDS: QUEtiapine TAB* 100 MG PO SCH (21:16)
[2017-01-10] MEDS: Vitamin THERAPEUTIC TAB PO SCH (08:37)
[2017-01-10] MEDS: buPROPion TAB* 100 MG PO SCH (08:37)
--- NOTE | 2017-01-10 14:32 | PN ---
Subjective - Subjective Service Type: 59853 Hosp care 15 min low complexity Subjective: Patient is interactive with staff and peers. He is participating in unit programming. During interview, he is pleasant and talkative. He states he was not taking quetiapine prior to admission and this "made me depressed." He states he had dark, demonic thoughts. He reports mood and thoughts to be much improved. He denies SI or intrusive thoughts. He expresses readiness for discharge. Patient goes on to describe that he wants to work, otherwise he feels guilty not having a job. However, he is easily overwhelmed when he needs to be somewhere timely. He states understanding of use of propranolol for social/performance anxiety. He declines need for wellbutrin. Objective - Appearance Appearance: Well Developed/Nourished Dysmorphic Features: No Hygiene: Normal Grooming: Well Kept - Behavior Psychomotor Activities: Normal Exhibits Abnormal Movement: No - Attitude and Relatedness Attitude and Relatedness: Cooperative Eye Contact: Good - Speech Quality: Unpressured Latencies: Normal Quantity: Appropriate - Mood Patient's Decription of Mood: "Good" - Affect Observed Affect: Non-labile Affect Consistent with: Euthymia - Thought Process Patient's Thought Process: Coherent, Incoherent, Goal Directed Thought Content: No Passive Wish, No Suicidal Planning, No Homicidal Ideation, No Paranoid Ideation - Sensorium Experiencing Hallucinations: No, Sensorium is Clear Type of Hallucinations: Visual: No, Auditory: No, Command: No - Level of Consciousness Level of Consciousness: Alert Orientation: Yes Intact, Yes Orientated to Time, Yes Orientated to Place, Yes Orientated to Person - Impulse Control Impulse Control: Intact - Insight and Judgement Insight and Judgement: Good - Group Participation Particating in Group Activities: Yes - Medication Management Medication Management Adherence: Partial - declines wellbutrin Assessment - Assessment Merits Inpatient Hospitalization: For Immediate Safety, Consolidate Improvements Inpatient DSM-IV Dx: schizophrenia; PTSD Clinical Impression: Swapna is a 26yo with a history of schizophrenia and treatment with clozapine. He was sent to the ED from [facility] due to severe depressive symptoms and bizarre statements. He presented as near catatonic for the first day of admission. He has been medication compliant and participating in unit programming. He identifies that he was not taking quetiapine prior to admission. Plan - Plan Treatment Plan: Name: SWAPNA LEONARDO Birthdate: 1990 [id number] Continue medications as previously prescribed, including propranolol prn for anxiety. Continue supportive milieu and unit programming. Discharge planning to include outpatient providers. Continued Medication Management: Continue Outpt Medication Medications: Current Medications Acetaminophen (Tylenol Tab*) 650 mg PO Q4H PRN PRN Reason: PAIN or TEMP > 101 F Al Hydrox/Mg Hydrox/Simethicone (Maalox Plus*) 30 ml PO Q4H PRN PRN Reason: INDIGESTION Bupropion HCl (Wellbutrin Tab*) 100 mg PO DAILY MARIE Last Admin: 01/10/17 08:37 Dose: 100 mg Clozapine (Clozapine Tab*) 100 mg PO BEDTIME MARIE Last Admin: 01/09/17 21:16 Dose: 100 mg Multivitamins (Theragran Tab*) 1 tab PO DAILY MARIE Last Admin: 01/10/17 08:37 Dose: 1 tab Propranolol HCl (Inderal Tab*) 20 mg PO BID PRN PRN Reason: ANXIETY Quetiapine Fumarate (Seroquel Tab*) 100 mg PO BEDTIME MARIE Last Admin: 01/09/17 21:16 Dose: 100 mg Quetiapine Fumarate (Seroquel Tab*) 100 mg PO BEDTIME PRN PRN Reason: INSOMNIA Last Admin: 01/08/17 22:47 Dose: 100 mg - Discharge Plan Discharge Plan: Outpatient Follow Up Outpatient Program: [facility] HERNANDEZ
[2017-01-10] MEDS: Propranolol TAB* 20 MG PO PRN ×2 (18:58→20:41)
[2017-01-10] MEDS: QUEtiapine TAB* 100 MG PO SCH (20:40)
[2017-01-10] MEDS: CloZAPine TAB* 100 MG TAB PO SCH (20:40)
[2017-01-11 08:02] VITALS: BP 111/72
[2017-01-11] MEDS: buPROPion TAB* 100 MG PO SCH (10:01)
[2017-01-11] MEDS: Vitamin THERAPEUTIC TAB PO SCH (10:01)
[2017-01-11] MEDS: Propranolol TAB* 20 MG PO PRN (14:05)
--- NOTE | 2017-01-11 15:40 | PN ---
Subjective - Subjective Subjective: Patient continues to be euthymic, interactive and pleasant upon approach. He expresses insight about medication non-adherence leading to depressed mood and hospitalization. He states he is ready for discharge after meeting with [facility] tomorrow. Swapna denies SI or intrusive thoughts. He denies AH/ VH. Objective - Appearance Appearance: Well Developed/Nourished, Thin Framed Dysmorphic Features: No Hygiene: Normal Grooming: Well Kept - Behavior Psychomotor Activities: Normal Exhibits Abnormal Movement: No - Attitude and Relatedness Attitude and Relatedness: Cooperative Eye Contact: Good - Speech Quality: Unpressured Latencies: Normal Quantity: Appropriate - Mood Patient's Decription of Mood: "Good" - Affect Observed Affect: Good Affect Consistent with: Euthymia - Thought Process Patient's Thought Process: Coherent, Goal Directed Thought Content: No Passive Wish, No Suicidal Planning, No Homicidal Ideation, No Paranoid Ideation - Sensorium Experiencing Hallucinations: No, Sensorium is Clear Type of Hallucinations: Visual: No, Auditory: No, Command: No - Level of Consciousness Level of Consciousness: Alert Orientation: Yes Intact, Yes Orientated to Time, Yes Orientated to Place, Yes Orientated to Person - Impulse Control Impulse Control: Intact - Insight and Judgement Insight and Judgement: Good - Group Participation Particating in Group Activities: Yes - Medication Management Medication Management Adherence: Yes Assessment - Assessment Merits Inpatient Hospitalization: For Immediate Safety, For Discharge Planning Inpatient DSM-IV Dx: schizophrenia; PTSD Clinical Impression: Swapna is a 26yo with a history of schizophrenia and treatment with clozapine. He was sent to the ED from [facility] due to severe depressive symptoms and bizarre statements. He presented as near catatonic for the first day of admission. He has been medication compliant and participating in unit programming. He identifies that he was not taking quetiapine prior to admission and agrees to continue all medications after discharge. Plan - Plan Treatment Plan: Name: SWAPNA LEONARDO Birthdate: 1990 [id number] Continue medications as previously prescribed, including propranolol prn for anxiety. Continue supportive milieu and unit programming. Discharge planning to include outpatient providers in meeting on 01/12/17 at 1pm. Continued Medication Management: Consider Medication Medications: Current Medications Acetaminophen (Tylenol Tab*) 650 mg PO Q4H PRN PRN Reason: PAIN or TEMP > 101 F Al Hydrox/Mg Hydrox/Simethicone (Maalox Plus*) 30 ml PO Q4H PRN PRN Reason: INDIGESTION Bupropion HCl (Wellbutrin Tab*) 100 mg PO DAILY MARIE Last Admin: 01/11/17 10:01 Dose: 100 mg Clozapine (Clozapine Tab*) 100 mg PO BEDTIME MARIE Last Admin: 01/10/17 20:40 Dose: 100 mg Multivitamins (Theragran Tab*) 1 tab PO DAILY MARIE Last Admin: 01/11/17 10:01 Dose: 1 tab Propranolol HCl (Inderal Tab*) 20 mg PO BID PRN PRN Reason: ANXIETY Last Admin: 01/11/17 14:05 Dose: 20 mg Quetiapine Fumarate (Seroquel Tab*) 100 mg PO BEDTIME MARIE Last Admin: 01/10/17 20:40 Dose: 100 mg Quetiapine Fumarate (Seroquel Tab*) 100 mg PO BEDTIME PRN PRN Reason: INSOMNIA Last Admin: 01/08/17 22:47 Dose: 100 mg - Discharge Plan Discharge Plan: Outpatient Follow Up Outpatient Program: [facility] HERNANDE[facility]
[2017-01-11] MEDS: CloZAPine TAB* 100 MG TAB PO SCH (19:54)
[2017-01-11] MEDS: QUEtiapine TAB* 100 MG PO SCH (19:54)
[2017-01-12] MEDS: buPROPion TAB* 100 MG PO SCH (09:35)
[2017-01-12] MEDS: Vitamin THERAPEUTIC TAB PO SCH (09:35)
[2017-01-12] MEDS: Propranolol TAB* 20 MG PO PRN (12:43)
--- NOTE | 2017-01-15 13:26 | DS ---
CC: Dr. Santacruz, [facility]; Sean Collier, PhD DISCHARGE SUMMARY: DATE OF ADMISSION: 01/08/17 DATE OF DISCHARGE: 01/12/17 SUPERVISING PSYCHIATRIST: Jere Hassan MD DISCHARGE DIAGNOSES: Elbe I: Schizophrenia and posttraumatic stress disorder. Elbe II: Deferred. Elbe III: No active medical problem. Elbe IV: Moderate stressors related to severe and persistent mental illness. Elbe V: 55 CONDITION AT TIME OF DISCHARGE: Improved. The patient was no longer voicing intrusive thoughts or suicidal ideation. He was interactive and p articipating fully in interview and programming. He was medication compliant and expressed insight that not taking his bedtime medications likely led to severe depressive state. The patient reports willingness to return to [facility] and that he feels safe there. He reports that he enjoys jesse ng there and has good rapport with staff. Discharge meeting included myself, Saulo, a staff member from [facility], and the patient. We reviewed safety planning and the timeline of events from p rior to admission and during the hospitalization. We identified resources and ideas that Edgard arreola be willing to utilize in the outpatient setting, for instance volunteering/working at the [employer], utilizing [facility]. The patient was insightful in that when I brought up the idea of loaves and fishes, he states that he does not like to go into churches as this is triggerin g to his delusions. He reports willingness to continue with current medications. MENTAL STATUS EXAM: Edgard is a tall, thin-framed male. He was dressed in his own clothing. He sa t on the couch and engages in conversation. He appeared somewhat anxious. He was alert and oriente d. His eye contact was good. His affect was full range of affect. Speech was soft and articulate. He was pleasant and talkative. Concentration was good. Memory was good. Mood was mildly anxious . His insight and judgment were both good. Fund of knowledge was excellent. Instructions given to t he patient. MEDICATIONS: He will continue on current medication regimen of: 1. Clozapine 100 mg p.o. q.h.s. 2. Quetiapine 100 mg p.o. q.h.s. 3. Quetiapine 100 mg p.o. q.h.s. p.r.n. insomnia. 4. Propranolol 20 mg b.i.d. Edgard did not feel that Wellbutrin was helpful, declined the offer to continue this medication and agrees with the plan. Saulo from [facility] denied need for outpatient [place] DIET: Regular. ACTIVITY: Ambulation as tolerated. Tobacco cessation not applicable. FOLLOWUP CARE: The patient will return to [facility] and he will see his therapist, Daniela lewis, for therapy and blood draw on 01/16/17. He will see Dr. Santacruz for medication manag ement on , 01/18/17, at 2 p.m. HOSPITAL COURSE: A. Reason for admission: The patient was sent to the emergency room by [facility] staff due to increased mood, bizarre statements about losing the will to live and a higher brenda r giving him all the answers. He had been noncompliant with medications and presenting as nearly ca tatonic. He was admitted for immediate safety and stabilization. B. Psychiatric treatment rendered: The patient was admitted to behavioral services unit under 9.39 status. His code status is full and he was monitored every 15 minutes for safety. He was medicati on compliant. He was more interactive and participatory within one day of admission. He was safe o n all checks and was decreased to q. 30 minutes observation status. He was agreeable to propranolol for anxiety and reported that this was effective in regards to interactions with others. He did si gn releases of information for his outpatient providers including [facility] and private psychologist, Sean Collier. Edgard declined to sign releases of information for his doc tor to talk with his mother. He was able to identify medication nonadherence as a factor towards inc reased depression. He was eager for discharge and participated in a meeting with [facility] staf f member, Saulo. Edgard denied suicidal ideation or risk for self-harm and all were in agreement f or his discharge. Edgard was discharged by nursing staff and left with [facility] staff member, Saulo. As stated above, Saulo denied need for [place]gard expressed appreciation for services during the hospitalization. He also reported relief jammie t this was a shorter hospitalization compared to previous placements. He stated understanding that he could return at any time if he did not feel safe or felt need for stabilization. DENNYS LERMA NP [id number]/[facility] #: [id number]
== END 2017-01-12 13:45 | DRG 750 ==
LOC: ED 14:06 → OBSVTOIN 21:47 → BSU 21:47
PROVIDERS: ADMIT Psychiatry & Neurology Psychiatry; ATTEND Psychiatry & Neurology Psychiatry
DX: F20.9 Schizophrenia, unspecified (principal); F22 Delusional disorders; K28.9 Gastrojejunal ulcer, unspecified as acute or chronic, without hemorrhage or perforation; F41.9 Anxiety disorder, unspecified; J45.909 Unspecified asthma, uncomplicated; J42 Unspecified chronic bronchitis; G40.909 Epilepsy, unspecified, not intractable, without status epilepticus; F43.10 Post-traumatic stress disorder, unspecified; F32.9 Major depressive disorder, single episode, unspecified; Z91.14 Patient's other noncompliance with medication regimen; Z82.49 Family history of ischemic heart disease and other diseases of the circulatory system; Z81.8 Family history of other mental and behavioral disorders; Z87.891 Personal history of nicotine dependence
CPT/HCPCS: 36415; 80053; 80307; 80320; 80329; 81003; 84443; 85025; A9270-GY; G0480

== ENCOUNTER → 2017-04-17 12:38 | Emergency (ER) | payer MEDICARE ==
[2017-04-17 13:07] LABS: Hematocrit 43 % (42-52); Hemoglobin 14.7 g/dl (14.0-18.0); Mean Corpuscular HGB Conc 34 g/dl (31-36); Mean Corpuscular Hemoglobin 30 pg (27-31); Mean Corpuscular Volume 87 fL (80-94); Mean Platelet Volume 9 um3 (7.4-10.4); Red Blood Count 4.94 10^6/ul (4.0-5.4); Red Cell Distribution Width 13 % (10.5-15); White Blood Count 5.5 10^3/ul (3.5-10.8)
[2017-04-17 13:20] LABS: ALT 12 U/L (7-52); AST 20 U/L (13-39); Albumin 4.7 g/dL (3.2-5.2); Alkaline Phosphatase 49 U/L (34-104); Anion Gap 6 mmol/L (2-11); BUN/Creatinine Ratio 14.6 (8-20); Blood Urea Nitrogen 12 mg/dL (6-24); CO2 Carbon Dioxide 25 mmol/L (22-32); Calcium 9.8 mg/dL (8.6-10.3); Chloride 105 mmol/L (101-111); EGFR African American 144.9 (>60); EGFR Non-African American 112.7 (>60); Globulin 2.5 g/dL (2-4); Glucose 101 mg/dL (70-100); Sodium 136 mmol/L (133-145); Total Protein 7.2 g/dL (6.4-8.9)
[2017-04-17 13:44] LABS: Benzodiazepine Urine Screen None Detected (None Detect)
[2017-04-17 13:49] LABS: Acetaminophen < 15 mcg/mL; Alcohol < 10 mg/dL (<10); Salicylate < 2.50 mg/dL (<30)
[2017-04-17 13:50] LABS: Urine Bilirubin Negative (Negative); Urine Glucose Negative (Negative); Urine Nitrite Negative (Negative)
[2017-04-17 14:05] LABS: TSH (Thyroid Stimulating Horm) 2.05 mcIU/mL (0.34-5.60)
[2017-04-17 15:00] VITALS: BP 111/69
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
== END | disposition home or self-care (01) ==
LOC: ED 12:38
DX: F39 Unspecified mood [affective] disorder (principal); Z87.891 Personal history of nicotine dependence
CPT/HCPCS: 36415; 80053; 80307; 80320; 80329; 81003; 84443; 85025; 99284; G0480

== ENCOUNTER 2019-11-14 12:09 | Inpatient (IN) ==
[2019-11-14] MEDS ORDERED: Haloperidol 5 mg/ml SDV IV/IM 5 MG/ML AMP IM ONE (13:39)
[2019-11-14] MEDS ORDERED: diPHENhydraMINE IV 50 MG/ML 1 ml VIAL (BENADRYL) IM ONE (13:39)
[2019-11-14] MEDS ORDERED: Lorazepam PYXIS KEY PRN (13:45)
[2019-11-14] MEDS ORDERED: LORazepam 2 mg VIAL 1 ml IM ONE (13:45)
[2019-11-14] MEDS ORDERED: Ziprasidone IM 20 mg VIAL 1 ml VIAL IM ONE (14:55)
[2019-11-14] MEDS ORDERED: Midazolam 2 mg/2 ml VIAL 1 mg/ml 2 ml VIAL (2 mg) IM ONE (15:48)
[2019-11-14] MEDS ORDERED: Ketamine HCL 50 mg/ml 10 ml VIAL (500 MG) IV ONE (15:48)
[2019-11-14 16:35] LABS: ABS Eosinophils 0.1 10^3/ul (0-0.6); ABS Lymphocytes 0.9 10^3/ul (1.0-4.8); ABS Monocytes 0.6 10^3/ul (0-0.8); Eosinophil % 1.7 %; Hematocrit 45 % (42-52); Hemoglobin 15.5 g/dL (14.0-18.0); Mean Corpuscular HGB Conc 35 g/dL (31-36); Mean Corpuscular Hemoglobin 31 pg (27-31); Mean Corpuscular Volume 88 fL (80-94); Mean Platelet Volume 8.4 fL (7.4-10.4); Nucleated Red Blood Cells % 0.2; Platelet Count 214 10^3/uL (150-450); Red Blood Count 5.06 10^6 /uL (4.18-5.48); Red Cell Distribution Width 13 % (10-15); White Blood Count 6.3 10^3/uL (3.5-10.8)
[2019-11-14] MEDS ORDERED: Al Hydrox/Mg Hydrox/Simet LIQ 30 ML UDC PO PRN (16:42)
[2019-11-14] MEDS ORDERED: Albuterol HFA INHALER 8 gm MDI INH PRN (16:46)
[2019-11-14 16:51] LABS: ALT 19 U/L (7-52); AST 25 U/L (13-39); Albumin 4.8 g/dL (3.2-5.2); Albumin/Globulin Ratio 1.8 (1-3); Alkaline Phosphatase 53 U/L (34-104); Anion Gap 4 mmol/L (2-11); BUN/Creatinine Ratio 16.5 (8-20); Blood Urea Nitrogen 14 mg/dL (6-24); CO2 Carbon Dioxide 31 mmol/L (22-32); Calcium 10.2 mg/dL (8.6-10.3); Chloride 104 mmol/L (101-111); EGFR African American 128.9 (>60); EGFR Non-African American 106.6 (>60); Globulin 2.7 g/dL (2-4); Glucose 89 mg/dL (70-100); Potassium 4.3 mmol/L (3.5-5.0); Sodium 139 mmol/L (135-145); Total Protein 7.5 g/dL (6.4-8.9)
[2019-11-14 17:37] LABS: Acetaminophen < 15 mcg/mL; Alcohol, S < 10 mg/dL (<10); Salicylate < 2.50 mg/dL (<30)
[2019-11-14 17:52] LABS: TSH (Thyroid Stimulating Horm) 1.25 mcIU/mL (0.34-5.60)
[2019-11-15] MEDS: Vitamin THERAPEUTIC TAB PO SCH (11:15)
[2019-11-16] MEDS: Vitamin THERAPEUTIC TAB PO SCH (08:49)
[2019-11-17] MEDS: Vitamin THERAPEUTIC TAB PO SCH (08:57)
[2019-11-17] MEDS ORDERED: diPHENhydraMINE IV 50 MG/ML 1 ml VIAL (BENADRYL) IM ONE (15:07)
[2019-11-17] MEDS ORDERED: Haloperidol 5 mg/ml SDV IV/IM 5 MG/ML AMP IM ONE (15:08)
[2019-11-17] MEDS ORDERED: LORazepam 2 mg VIAL 1 ml IM ONE (15:08)
[2019-11-17 15:28] LABS: Albumin 4.2 g/dL (3.2-5.2); Albumin/Globulin Ratio 1.7 (1-3); C Reactive Protein 30.37 mg/L (<8.01); Globulin 2.5 g/dL (2-4); Indirect Bilirubin 0.5 mg/dL (0.3-1.0); Total Bilirubin 0.6 mg/dL (0.2-1.0); Total Protein 6.7 g/dL (6.4-8.9)
[2019-11-17 15:35] LABS: Urine Appearance Clear; Urine Bilirubin Negative (Negative); Urine Blood 1+ (Negative); Urine Color Yellow; Urine Glucose Negative (Negative); Urine Ketones Negative (Negative); Urine Nitrite Negative (Negative); Urine Protein Negative (Negative); Urine Specific Gravity 1.012 (1.010-1.030); Urine Urobilinogen Negative (Negative)
[2019-11-17 15:40] LABS: Urine Bacteria Absent (Absent); Urine Red Blood Cell 1+(3-5/hpf) (Absent); Urine White Blood Cell Trace(0-5/hpf) (Absent)
[2019-11-17 17:52] LABS: Hematocrit 40 % (42-52); Mean Corpuscular HGB Conc 35 g/dL (31-36); Mean Corpuscular Hemoglobin 31 pg (27-31); Mean Corpuscular Volume 86 fL (80-94); Mean Platelet Volume 9.3 fL (7.4-10.4); Platelet Count 124 10^3/uL (150-450); Red Blood Count 4.59 10^6 /uL (4.18-5.48); Red Cell Distribution Width 13 % (10-15); White Blood Count 2.9 10^3/uL (3.5-10.8)
[2019-11-17 18:18] LABS: BUN/Creatinine Ratio 14.3 (8-20); Calcium 9.2 mg/dL (8.6-10.3); EGFR African American 130.7 (>60); Potassium 3.7 mmol/L (3.5-5.0)
[2019-11-17 19:36] LABS: ABS Lymphocytes 0.7 10^3/ul (1.0-4.8); ABS Monocytes 0.4 10^3/ul (0-0.8); Lymphocyte % 23.5 %; Nucleated Red Blood Cells % 0.1
[2019-11-18] MEDS: Vitamin THERAPEUTIC TAB PO SCH (08:30)
[2019-11-18 10:05] LABS: Hematocrit 41 % (42-52); Hemoglobin 14.2 g/dL (14.0-18.0); Mean Corpuscular HGB Conc 35 g/dL (31-36); Mean Corpuscular Hemoglobin 30 pg (27-31); Mean Corpuscular Volume 86 fL (80-94); Mean Platelet Volume 8.1 fL (7.4-10.4); Platelet Count 108 10^3/uL (150-450); Red Blood Count 4.71 10^6 /uL (4.18-5.48); Red Cell Distribution Width 13 % (10-15)
[2019-11-18 10:24] LABS: BUN/Creatinine Ratio 19.7 (8-20); Calcium 9.1 mg/dL (8.6-10.3); EGFR African American 146.7 (>60); EGFR Non-African American 121.3 (>60); HDL Cholesterol 42.6 mg/dL; Potassium 3.6 mmol/L (3.5-5.0)
[2019-11-18 10:38] LABS: ABS Lymphocytes 0.9 10^3/ul (1.0-4.8); ABS Monocytes 0.6 10^3/ul (0-0.8); Eosinophil % 0.2 %; Lymphocyte % 28.3 %; Nucleated Red Blood Cells % 0.1
[2019-11-18 10:59] LABS: C Reactive Protein 42.67 mg/L (<8.01)
[2019-11-18] MEDS: cefTRIAXone VIAL 1,000 MG VIAL IM SCH (11:28)
[2019-11-19] MEDS: Vitamin THERAPEUTIC TAB PO SCH (09:01)
[2019-11-19 09:03] LABS: Hematocrit 38 % (42-52); Hemoglobin 13.4 g/dL (14.0-18.0); Mean Corpuscular HGB Conc 35 g/dL (31-36); Mean Corpuscular Hemoglobin 30 pg (27-31); Mean Corpuscular Volume 86 fL (80-94); Mean Platelet Volume 8.3 fL (7.4-10.4); Platelet Count 126 10^3/uL (150-450); Red Blood Count 4.45 10^6 /uL (4.18-5.48); Red Cell Distribution Width 13 % (10-15); White Blood Count 3.7 10^3/uL (3.5-10.8)
[2019-11-19 09:20] LABS: BUN/Creatinine Ratio 17.8 (8-20); C Reactive Protein 33.07 mg/L (<8.01); Calcium 8.9 mg/dL (8.6-10.3); EGFR African American 153.7 (>60); Potassium 3.6 mmol/L (3.5-5.0)
[2019-11-19] MEDS: cefTRIAXone VIAL 1,000 MG VIAL IM SCH (12:57)
[2019-11-20] MEDS: Vitamin THERAPEUTIC TAB PO SCH (09:27)
[2019-11-21] MEDS: Vitamin THERAPEUTIC TAB PO SCH (08:14)
[2019-11-21 08:58] LABS: Clozapine 133 ng/mL (350-600); Clozapine & Norclozapine Level 177 ng/mL; Norclozapine 44 ng/mL
[2019-11-21] MEDS: Ibuprofen ADULT LIQ 600 MG/30 ML UDC PO PRN ×2 (09:00→20:01)
[2019-11-21 11:22] LABS: ABS Eosinophils 0.2 10^3/ul (0-0.6); ABS Lymphocytes 2.8 10^3/ul (1.0-4.8); ABS Monocytes 0.5 10^3/ul (0-0.8); Eosinophil % 3.1 %; Hematocrit 36 % (42-52); Hemoglobin 12.6 g/dL (14.0-18.0); Lymphocyte % 55.8 %; Mean Corpuscular HGB Conc 35 g/dL (31-36); Mean Corpuscular Hemoglobin 30 pg (27-31); Mean Corpuscular Volume 86 fL (80-94); Mean Platelet Volume 8.1 fL (7.4-10.4); Nucleated Red Blood Cells % 0.2; Platelet Count 158 10^3/uL (150-450); Red Cell Distribution Width 13 % (10-15)
[2019-11-22] MEDS: Vitamin THERAPEUTIC TAB PO SCH (12:04)
[2019-11-22] MEDS ORDERED: Nicotine GUM 2MG FRUIT FLAVOR PO PRN (17:27)
[2019-11-22] MEDS ORDERED: Benzocaine/Menthol LOZ PO PRN (18:47)
[2019-11-23] MEDS ORDERED: Nicotine GUM 2MG FRUIT FLAVOR PO ONE ×2 (12:31→14:53)
[2019-11-23] MEDS: Vitamin THERAPEUTIC TAB PO SCH (13:29)
[2019-11-23] MEDS: Nicotine GUM 2MG FRUIT FLAVOR PO PRN ×2 (17:11→20:46)
[2019-11-23] MEDS: Ibuprofen ADULT LIQ 600 MG/30 ML UDC PO PRN (18:33)
[2019-11-24] MEDS: Vitamin THERAPEUTIC TAB PO SCH (08:36)
[2019-11-24] MEDS: Nicotine GUM 2MG FRUIT FLAVOR PO PRN ×7 (08:38→21:46)
[2019-11-25 08:16] LABS: ABS Basophils 0.1 10^3/ul (0-0.2); ABS Eosinophils 0.2 10^3/ul (0-0.6); ABS Lymphocytes 2.3 10^3/ul (1.0-4.8); ABS Monocytes 0.6 10^3/ul (0-0.8); Eosinophil % 3.1 %; Hematocrit 38 % (42-52); Hemoglobin 13.5 g/dL (14.0-18.0); Lymphocyte % 39.7 %; Mean Corpuscular HGB Conc 36 g/dL (31-36); Mean Corpuscular Hemoglobin 31 pg (27-31); Mean Corpuscular Volume 86 fL (80-94); Mean Platelet Volume 7.8 fL (7.4-10.4); Nucleated Red Blood Cells % 0.1; Platelet Count 256 10^3/uL (150-450); Red Blood Count 4.43 10^6 /uL (4.18-5.48); Red Cell Distribution Width 13 % (10-15); White Blood Count 5.8 10^3/uL (3.5-10.8)
[2019-11-25 08:30] LABS: ALT 30 U/L (7-52); AST 25 U/L (13-39); Albumin 4.1 g/dL (3.2-5.2); Albumin/Globulin Ratio 1.8 (1-3); Alkaline Phosphatase 44 U/L (34-104); Globulin 2.3 g/dL (2-4); Indirect Bilirubin 0.3 mg/dL (0.3-1.0); Total Protein 6.4 g/dL (6.4-8.9)
[2019-11-25 08:41] LABS: % Iron Saturation 10 % (15-55); Iron 35 ug/dL (50-212); LDH 146 U/L (140-271); Total Iron Binding Capacity 344 mcg/dL (250-450); Transferrin 246 mg/dL (203-362)
[2019-11-25 09:03] LABS: Ferritin 40.4 ng/mL (24-336)
[2019-11-25] MEDS: Nicotine GUM 2MG FRUIT FLAVOR PO PRN ×5 (09:50→20:45)
[2019-11-25] MEDS: Vitamin THERAPEUTIC TAB PO SCH (13:23)
[2019-11-25] MEDS: Ibuprofen ADULT LIQ 600 MG/30 ML UDC PO PRN (17:28)
[2019-11-26] MEDS: Vitamin THERAPEUTIC TAB PO SCH (10:32)
[2019-11-26] MEDS: Nicotine GUM 2MG FRUIT FLAVOR PO PRN ×5 (10:45→20:28)
[2019-11-26] MEDS: Ibuprofen ADULT LIQ 600 MG/30 ML UDC PO PRN (16:19)
[2019-11-27] MEDS: Ibuprofen ADULT LIQ 600 MG/30 ML UDC PO PRN ×4 (00:02→19:07)
[2019-11-27] MEDS: Vitamin THERAPEUTIC TAB PO SCH (09:09)
[2019-11-27] MEDS: Nicotine GUM 2MG FRUIT FLAVOR PO PRN ×2 (12:20→17:49)
[2019-11-28 08:07] LABS: ABS Basophils 0.1 10^3/ul (0-0.2); ABS Eosinophils 0.2 10^3/ul (0-0.6); ABS Lymphocytes 4.3 10^3/ul (1.0-4.8); ABS Monocytes 1.1 10^3/ul (0-0.8); Eosinophil % 2.6 %; Hematocrit 40 % (42-52); Hemoglobin 14.1 g/dL (14.0-18.0); Lymphocyte % 53.7 %; Mean Corpuscular HGB Conc 35 g/dL (31-36); Mean Corpuscular Hemoglobin 31 pg (27-31); Mean Corpuscular Volume 88 fL (80-94); Mean Platelet Volume 7.7 fL (7.4-10.4); Nucleated Red Blood Cells % 0.1; Platelet Count 246 10^3/uL (150-450); Red Cell Distribution Width 13 % (10-15)
[2019-11-28] MEDS: Vitamin THERAPEUTIC TAB PO SCH (14:44)
[2019-11-28] MEDS: Nicotine GUM 2MG FRUIT FLAVOR PO PRN (20:55)
[2019-11-29] MEDS: Vitamin THERAPEUTIC TAB PO SCH (14:29)
[2019-11-29] MEDS: Nicotine GUM 2MG FRUIT FLAVOR PO PRN ×3 (15:38→20:05)
[2019-11-30] MEDS: Vitamin THERAPEUTIC TAB PO SCH (13:10)
[2019-11-30] MEDS: Nicotine GUM 2MG FRUIT FLAVOR PO PRN ×2 (19:34→21:34)
[2019-12-01] MEDS ORDERED: Docusate LIQ 100 MG/10 ML UDC PO PRN (11:13)
[2019-12-01] MEDS: Vitamin THERAPEUTIC TAB PO SCH (11:30)
[2019-12-02] MEDS: Vitamin THERAPEUTIC TAB PO SCH (11:08)
[2019-12-02] MEDS: Nicotine GUM 2MG FRUIT FLAVOR PO PRN (20:11)
[2019-12-03] MEDS: Vitamin THERAPEUTIC TAB PO SCH (09:27)
[2019-12-03] MEDS: Nicotine GUM 2MG FRUIT FLAVOR PO PRN (16:57)
[2019-12-04] MEDS: Vitamin THERAPEUTIC TAB PO SCH (08:14)
[2019-12-04] MEDS: Nicotine GUM 2MG FRUIT FLAVOR PO PRN ×2 (08:16→20:54)
[2019-12-05 07:42] LABS: ABS Basophils 0.1 10^3/ul (0-0.2); ABS Eosinophils 0.2 10^3/ul (0-0.6); ABS Monocytes 0.7 10^3/ul (0-0.8); Eosinophil % 2.6 %; Hematocrit 40 % (42-52); Lymphocyte % 50.3 %; Mean Corpuscular HGB Conc 35 g/dL (31-36); Mean Corpuscular Hemoglobin 30 pg (27-31); Mean Corpuscular Volume 86 fL (80-94); Mean Platelet Volume 7.2 fL (7.4-10.4); Nucleated Red Blood Cells % 0.1; Platelet Count 211 10^3/uL (150-450); Red Blood Count 4.68 10^6 /uL (4.18-5.48); Red Cell Distribution Width 13 % (10-15)
[2019-12-05] MEDS: Vitamin THERAPEUTIC TAB PO SCH (09:07)
[2019-12-05] MEDS: Nicotine GUM 2MG FRUIT FLAVOR PO PRN ×3 (09:08→20:05)
[2019-12-06] MEDS: Vitamin THERAPEUTIC TAB PO SCH (12:25)
[2019-12-07] MEDS: Vitamin THERAPEUTIC TAB PO SCH (08:24)
[2019-12-07] MEDS: Nicotine GUM 2MG FRUIT FLAVOR PO PRN ×2 (08:25→20:34)
[2019-12-08] MEDS: Vitamin THERAPEUTIC TAB PO SCH (09:05)
[2019-12-08] MEDS: Nicotine GUM 2MG FRUIT FLAVOR PO PRN ×2 (09:11→12:25)
[2019-12-09] MEDS: Vitamin THERAPEUTIC TAB PO SCH (07:58)
[2019-12-09] MEDS: Nicotine GUM 2MG FRUIT FLAVOR PO PRN ×3 (08:27→20:28)
[2019-12-10] MEDS: Vitamin THERAPEUTIC TAB PO SCH (09:02)
[2019-12-10] MEDS: Nicotine GUM 2MG FRUIT FLAVOR PO PRN ×5 (09:45→20:03)
[2019-12-10 23:12] LABS: Clozapine 461 ng/mL (350-600); Clozapine & Norclozapine Level 682 ng/mL; Norclozapine 221 ng/mL
[2019-12-11] MEDS: Nicotine GUM 2MG FRUIT FLAVOR PO PRN ×5 (08:15→20:23)
[2019-12-11] MEDS: Vitamin THERAPEUTIC TAB PO SCH (08:15)
[2019-12-12] MEDS: Nicotine GUM 2MG FRUIT FLAVOR PO PRN (08:04)
[2019-12-12 09:19] VITALS: BP 134/79
[2019-12-12] MEDS: Vitamin THERAPEUTIC TAB PO SCH (10:02)
[2019-12-12 12:23] LABS: ABS Basophils 0.1 10^3/ul (0-0.2); ABS Eosinophils 0.1 10^3/ul (0-0.6); ABS Lymphocytes 2.5 10^3/ul (1.0-4.8); ABS Monocytes 0.6 10^3/ul (0-0.8); Eosinophil % 1.4 %; Hematocrit 41 % (42-52); Hemoglobin 14.2 g/dL (14.0-18.0); Lymphocyte % 42.9 %; Mean Corpuscular HGB Conc 35 g/dL (31-36); Mean Corpuscular Hemoglobin 30 pg (27-31); Mean Corpuscular Volume 85 fL (80-94); Mean Platelet Volume 7.8 fL (7.4-10.4); Nucleated Red Blood Cells % 0.2; Platelet Count 145 10^3/uL (150-450); Red Blood Count 4.79 10^6 /uL (4.18-5.48); Red Cell Distribution Width 13 % (10-15); White Blood Count 5.9 10^3/uL (3.5-10.8)
== END 2019-12-12 14:30 | disposition home or self-care (01) | DRG 885 ==
LOC: ED 12:09 → BSU 16:42 → ICU 11-17 12:15 → MED 11-18 10:57 → BSU 11-19 10:00
PROVIDERS: ADMIT Psychiatry & Neurology Psychiatry; ATTEND Psychiatry & Neurology Psychiatry

== ENCOUNTER 2020-04-12 10:59 | Inpatient (IN) ==
[2020-04-12 13:38] LABS: ABS Basophils 0.1 10^3/ul (0-0.2); ABS Eosinophils 0.3 10^3/ul (0-0.6); ABS Lymphocytes 3.2 10^3/ul (1.0-4.8); ABS Monocytes 1.1 10^3/ul (0-0.8); ABS Neutrophils 8.3 10^3/ul (1.5-7.7); Eosinophil % 2.7 %; Hematocrit 46 % (42-52); Hemoglobin 15.6 g/dL (14.0-18.0); Lymphocyte % 24.5 %; Mean Corpuscular HGB Conc 34 g/dL (31-36); Mean Corpuscular Hemoglobin 29 pg (27-31); Mean Corpuscular Volume 86 fL (80-94); Mean Platelet Volume 9.3 fL (7.4-10.4); Nucleated Red Blood Cells % 0.1; Platelet Count 250 10^3/uL (150-450); Red Blood Count 5.31 10^6 /uL (4.18-5.48); Red Cell Distribution Width 14 % (10-15)
[2020-04-12 13:52] LABS: ALT 9 U/L (7-52); Acetaminophen < 15 mcg/mL; Albumin/Globulin Ratio 1.9 (1-3); Alcohol, S < 10 mg/dL (<10); Alkaline Phosphatase 55 U/L (34-104); BUN/Creatinine Ratio 10.1 (8-20); Blood Urea Nitrogen 9 mg/dL (6-24); CO2 Carbon Dioxide 20 mmol/L (22-32); Calcium 9.8 mg/dL (8.6-10.3); Chloride 103 mmol/L (101-111); EGFR African American 121.4 (>60); EGFR Non-African American 100.4 (>60); Globulin 2.6 g/dL (2-4); Glucose 101 mg/dL (70-100); Salicylate < 2.50 mg/dL (<30); Sodium 139 mmol/L (135-145); Total Protein 7.6 g/dL (6.4-8.9)
[2020-04-12] MEDS ORDERED: Al Hydrox/Mg Hydrox/Simet LIQ 30 ML UDC PO PRN (13:58)
[2020-04-12] MEDS ORDERED: Albuterol HFA INHALER 8 gm MDI INH PRN (14:04)
[2020-04-12 14:05] LABS: TSH Ultra Thyroid Stim Horm 1.96 mcIU/mL (0.34-5.60)
[2020-04-12 14:14] LABS: AST 17 U/L (13-39); Anion Gap 16 mmol/L (2-11)
[2020-04-12] MEDS ORDERED: Senna TAB 8.6 mg TAB PO PRN (14:28)
[2020-04-12] MEDS: Nicotine GUM 4MG FRUIT FLAVOR PO PRN ×3 (14:47→20:47)
[2020-04-12 14:59] LABS: Urine Appearance Clear; Urine Bilirubin Negative (Negative); Urine Blood Negative (Negative); Urine Color Yellow; Urine Glucose Negative (Negative); Urine Ketones Negative (Negative); Urine Nitrite Negative (Negative); Urine Protein Negative (Negative); Urine Specific Gravity 1.011 (1.010-1.030); Urine Urobilinogen Negative (Negative)
[2020-04-12 15:34] LABS: Urine Benzodiazepine Screen None Detected (None Detect); Urine Cannabinoids Screen Presumptive Positive (None Detect); Urine Opiates Screen None Detected (None Detect)
[2020-04-12] MEDS: Nicotine PATCH 14 MG/24 HR PATCH TRANSDERM SCH (15:48)
[2020-04-13] MEDS: Nicotine PATCH 14 MG/24 HR PATCH TRANSDERM SCH (12:13)
[2020-04-13] MEDS: Vitamin THERAPEUTIC TAB PO SCH ×2 (12:14→13:25)
[2020-04-13] MEDS: Nicotine GUM 4MG FRUIT FLAVOR PO PRN ×3 (13:27→19:24)
[2020-04-14 08:27] LABS: HDL Cholesterol 48.6 mg/dL
[2020-04-14] MEDS: Nicotine PATCH 14 MG/24 HR PATCH TRANSDERM SCH (10:36)
[2020-04-14] MEDS: Vitamin THERAPEUTIC TAB PO SCH ×2 (10:36→11:55)
[2020-04-14] MEDS: Nicotine GUM 4MG FRUIT FLAVOR PO PRN ×4 (11:55→19:51)
[2020-04-15] MEDS: Nicotine GUM 4MG FRUIT FLAVOR PO PRN ×5 (08:38→20:05)
[2020-04-15] MEDS: Nicotine PATCH 14 MG/24 HR PATCH TRANSDERM SCH (08:38)
[2020-04-15] MEDS: Vitamin THERAPEUTIC TAB PO SCH (08:38)
[2020-04-15 23:49] LABS: Clozapine 680 ng/mL (350-600); Clozapine & Norclozapine Level 896 ng/mL; Norclozapine 216 ng/mL
[2020-04-16] MEDS: Nicotine PATCH 14 MG/24 HR PATCH TRANSDERM SCH (11:29)
[2020-04-16] MEDS: Nicotine GUM 4MG FRUIT FLAVOR PO PRN ×5 (11:30→19:56)
[2020-04-16] MEDS: Vitamin THERAPEUTIC TAB PO SCH (11:30)
[2020-04-17] MEDS: Vitamin THERAPEUTIC TAB PO SCH (09:00)
[2020-04-17] MEDS: Nicotine PATCH 14 MG/24 HR PATCH TRANSDERM SCH (09:01)
[2020-04-17] MEDS: Nicotine GUM 4MG FRUIT FLAVOR PO PRN ×2 (14:37→18:42)
[2020-04-18] MEDS: Vitamin THERAPEUTIC TAB PO SCH (11:22)
[2020-04-18] MEDS: Nicotine GUM 4MG FRUIT FLAVOR PO PRN ×4 (11:22→19:06)
[2020-04-18] MEDS: Nicotine PATCH 14 MG/24 HR PATCH TRANSDERM SCH (11:22)
[2020-04-19 07:16] LABS: ABS Eosinophils 0.3 10^3/ul (0-0.6); ABS Lymphocytes 2.9 10^3/ul (1.0-4.8); ABS Monocytes 0.5 10^3/ul (0-0.8); ABS Neutrophils 2.9 10^3/ul (1.5-7.7); Eosinophil % 4.9 %; Hematocrit 41 % (42-52); Hemoglobin 13.9 g/dL (14.0-18.0); Lymphocyte % 43.4 %; Mean Corpuscular HGB Conc 34 g/dL (31-36); Mean Corpuscular Hemoglobin 29 pg (27-31); Mean Corpuscular Volume 86 fL (80-94); Mean Platelet Volume 8.2 fL (7.4-10.4); Platelet Count 221 10^3/uL (150-450); Red Blood Count 4.73 10^6 /uL (4.18-5.48); Red Cell Distribution Width 14 % (10-15); White Blood Count 6.6 10^3/uL (3.5-10.8)
[2020-04-19] MEDS: Vitamin THERAPEUTIC TAB PO SCH (09:38)
[2020-04-19] MEDS: Nicotine PATCH 14 MG/24 HR PATCH TRANSDERM SCH (09:38)
[2020-04-19] MEDS: Nicotine GUM 4MG FRUIT FLAVOR PO PRN ×3 (11:55→20:20)
[2020-04-20] MEDS: Vitamin THERAPEUTIC TAB PO SCH (09:15)
[2020-04-20] MEDS: Nicotine PATCH 14 MG/24 HR PATCH TRANSDERM SCH (09:25)
[2020-04-20] MEDS: Nicotine GUM 4MG FRUIT FLAVOR PO PRN ×3 (14:48→19:20)
[2020-04-21] MEDS: Nicotine PATCH 14 MG/24 HR PATCH TRANSDERM SCH ×2 (12:25→13:58)
[2020-04-21] MEDS: Vitamin THERAPEUTIC TAB PO SCH (12:26)
[2020-04-21] MEDS: Nicotine GUM 4MG FRUIT FLAVOR PO PRN ×5 (12:29→20:29)
[2020-04-22] MEDS: Vitamin THERAPEUTIC TAB PO SCH (08:32)
[2020-04-22] MEDS: Nicotine GUM 4MG FRUIT FLAVOR PO PRN ×7 (08:34→20:20)
[2020-04-22] MEDS: Nicotine PATCH 14 MG/24 HR PATCH TRANSDERM SCH (12:48)
[2020-04-23] MEDS: Vitamin THERAPEUTIC TAB PO SCH (11:12)
[2020-04-23] MEDS: Nicotine GUM 4MG FRUIT FLAVOR PO PRN ×6 (11:12→20:38)
[2020-04-23] MEDS: Nicotine PATCH 14 MG/24 HR PATCH TRANSDERM SCH (11:13)
[2020-04-24] MEDS: Vitamin THERAPEUTIC TAB PO SCH (11:22)
[2020-04-24] MEDS: Nicotine PATCH 14 MG/24 HR PATCH TRANSDERM SCH (11:22)
[2020-04-24] MEDS: Nicotine GUM 4MG FRUIT FLAVOR PO PRN ×6 (11:22→21:17)
[2020-04-25] MEDS: Vitamin THERAPEUTIC TAB PO SCH (09:08)
[2020-04-25] MEDS: Nicotine PATCH 14 MG/24 HR PATCH TRANSDERM SCH (09:09)
[2020-04-25] MEDS: Nicotine GUM 4MG FRUIT FLAVOR PO PRN ×6 (09:09→20:21)
[2020-04-26] MEDS: Vitamin THERAPEUTIC TAB PO SCH (08:51)
[2020-04-26] MEDS: Nicotine GUM 4MG FRUIT FLAVOR PO PRN ×6 (08:51→20:33)
[2020-04-26] MEDS: Nicotine PATCH 14 MG/24 HR PATCH TRANSDERM SCH (08:51)
[2020-04-26 13:58] LABS: ABS Eosinophils 0.2 10^3/ul (0-0.6); ABS Monocytes 0.5 10^3/ul (0-0.8); ABS Neutrophils 4.6 10^3/ul (1.5-7.7); Eosinophil % 2.9 %; Hematocrit 41 % (42-52); Hemoglobin 14.7 g/dL (14.0-18.0); Lymphocyte % 27.2 %; Mean Corpuscular HGB Conc 36 g/dL (31-36); Mean Corpuscular Hemoglobin 30 pg (27-31); Mean Corpuscular Volume 84 fL (80-94); Mean Platelet Volume 8.3 fL (7.4-10.4); Platelet Count 220 10^3/uL (150-450); Red Cell Distribution Width 14 % (10-15); White Blood Count 7.4 10^3/uL (3.5-10.8)
[2020-04-27] MEDS: Nicotine PATCH 14 MG/24 HR PATCH TRANSDERM SCH (09:59)
[2020-04-27] MEDS: Nicotine GUM 4MG FRUIT FLAVOR PO PRN ×5 (10:00→20:49)
[2020-04-27] MEDS: Vitamin THERAPEUTIC TAB PO SCH (10:00)
[2020-04-28] MEDS: Nicotine PATCH 14 MG/24 HR PATCH TRANSDERM SCH (08:39)
[2020-04-28] MEDS: Vitamin THERAPEUTIC TAB PO SCH (08:39)
[2020-04-28] MEDS: Nicotine GUM 4MG FRUIT FLAVOR PO PRN ×4 (08:39→14:40)
[2020-04-29] MEDS: Vitamin THERAPEUTIC TAB PO SCH (10:28)
[2020-04-29] MEDS: Nicotine PATCH 14 MG/24 HR PATCH TRANSDERM SCH (10:30)
[2020-04-30] MEDS: Nicotine PATCH 14 MG/24 HR PATCH TRANSDERM SCH ×2 (09:32→10:04)
[2020-04-30] MEDS: Vitamin THERAPEUTIC TAB PO SCH (09:32)
[2020-04-30] MEDS: Nicotine GUM 4MG FRUIT FLAVOR PO PRN (21:15)
[2020-05-01] MEDS: Vitamin THERAPEUTIC TAB PO SCH (10:41)
[2020-05-01] MEDS: Nicotine PATCH 14 MG/24 HR PATCH TRANSDERM SCH ×2 (10:41→10:47)
[2020-05-01] MEDS: Nicotine GUM 4MG FRUIT FLAVOR PO PRN ×2 (17:12→20:22)
[2020-05-02] MEDS: Vitamin THERAPEUTIC TAB PO SCH (10:07)
[2020-05-02] MEDS: Nicotine PATCH 14 MG/24 HR PATCH TRANSDERM SCH (10:08)
[2020-05-02] MEDS: Nicotine GUM 4MG FRUIT FLAVOR PO PRN ×3 (10:47→20:14)
[2020-05-03 08:54] VITALS: BP 137/98
[2020-05-03] MEDS: Vitamin THERAPEUTIC TAB PO SCH (08:58)
[2020-05-03] MEDS: Nicotine PATCH 14 MG/24 HR PATCH TRANSDERM SCH (09:27)
[2020-05-03] MEDS: Nicotine GUM 4MG FRUIT FLAVOR PO PRN ×4 (10:08→20:06)
[2020-05-04] MEDS: Nicotine PATCH 14 MG/24 HR PATCH TRANSDERM SCH (10:00)
[2020-05-04] MEDS: Vitamin THERAPEUTIC TAB PO SCH (10:01)
[2020-05-04] MEDS: Nicotine GUM 4MG FRUIT FLAVOR PO PRN ×6 (10:01→21:00)
[2020-05-04 10:39] LABS: Hematocrit 45 % (42-52); Hemoglobin 15.5 g/dL (14.0-18.0); Mean Corpuscular HGB Conc 34 g/dL (31-36); Mean Corpuscular Hemoglobin 30 pg (27-31); Mean Corpuscular Volume 87 fL (80-94); Red Blood Count 5.17 10^6 /uL (4.18-5.48); Red Cell Distribution Width 14 % (10-15); White Blood Count 7.3 10^3/uL (3.5-10.8)
[2020-05-04 11:33] LABS: ABS Eosinophils 0.3 10^3/ul (0-0.6); ABS Lymphocytes 2.3 10^3/ul (1.0-4.8); ABS Monocytes 0.6 10^3/ul (0-0.8); ABS Neutrophils 4.1 10^3/ul (1.5-7.7); Eosinophil % 3.8 %; Lymphocyte % 31.7 %; Nucleated Red Blood Cells % 0.1
[2020-05-05] MEDS: Vitamin THERAPEUTIC TAB PO SCH (07:37)
[2020-05-05] MEDS: Nicotine GUM 4MG FRUIT FLAVOR PO PRN (07:37)
[2020-05-05] MEDS: Nicotine PATCH 14 MG/24 HR PATCH TRANSDERM SCH (07:38)
== END 2020-05-05 09:00 | DRG 750 ==
LOC: ED 10:59 → BSU 13:58
PROVIDERS: ADMIT Psychiatry & Neurology Psychiatry; ATTEND Psychiatry & Neurology Psychiatry